=== PATIENT | male | born 1955 | race Caucasian/White ===

== ENCOUNTER 2017-02-17 13:56 | Emergency (ER) | payer OTHER ==
[~2017-02-17] VITALS: Wt 77.8 kg
[~2017-02-17 13:56] MED LIST: CLIN-73 PO
[2017-02-17] MEDS ORDERED: HYDROmorphONE 1 MG/ML SYG IV STA (16:59)
[2017-02-17] MEDS ORDERED: ONDANSETRON 4 MG INJ IV STA (16:59)
[2017-02-17] MEDS ORDERED: SOD CHLORIDE 0.9% 1,000 ML IV STA (16:59)
--- NOTE | 2017-02-17 17:06 | ERD ---
ER Documentation Chief Complaint Chief Complaint ABD PAIN, DIARRHEA, ONSET 4 DAYS HPI This is 61-year-old male complains of 4 days of diffuse abdominal cramps and diarrhea. The patient says everything he eats makes him have diarrhea. The patient states the diarrhea is nonbloody and non-mucousy. He says he is having diarrhea every 15-30 minutes today. Is not having any syncope palpitations chest pain. Does have mild nausea but no vomiting. ROS All systems reviewed and are negative except as per history of present illness. Medications Home Meds Active Scripts Tramadol HCl (Tramadol HCl) 50 Mg Tablet, 50 MG PO Q6, #20 TAB Prov:JAVIER SCOTTS A. DO 02/17/17 Metronidazole* (Flagyl*) 500 Mg Tablet, 500 MG PO TID for 7 Days, TAB Prov:JAVIER SCOTTS A. DO 02/17/17 Ciprofloxacin Hcl* (Ciprofloxacin Hcl*) 500 Mg Tablet, 500 MG PO BID for 7 Days , TAB Prov:JAVIER SCOTTS Laney. DO 02/17/17 Discontinued Reported Medications Clindamycin Hcl* (Clindamycin Hcl*) 300 Mg Capsule, 450 MG PO Q6, CAP 08/25/15 Allergies Allergies: Coded Allergies: codeine (Verified Allergy, Mild, GI UPSET, 02/17/17) nausea penicillin G (Verified Allergy, Unknown, 02/17/17) rash PMhx/Soc History of Surgery: Yes (L shoulder rotator cuff sx.) Anesthesia Reaction: No Hx Neurological Disorder: No Hx Respiratory Disorders: No Hx Cardiac Disorders: No Hx Psychiatric Problems: No Hx Miscellaneous Medical Probl: No Hx Alcohol Use: Yes (last intake was 2 years ago) Hx Substance Use: No Hx Tobacco Use: Yes (1 pack of cigarettes daily ) Smoking Status: Current every day smoker FmHx Family History: No coronary disease Physical Exam Vitals Vital Signs Date Time Temp Pulse Resp B/P Pulse Ox O2 Delivery O2 Flow Rate FiO2 02/17/17 18:19 98.1 72 20 108/82 98 Room Air 02/17/17 13:58 97.6 73 18 115/79 98 Physical Exam Const: Well-developed, well-nourished Head: Atraumatic, normocephalic Eyes: Normal Conjunctiva, PERRLA, EOMI, normal sclera, no nystagmus ENT: Normal External Ears, Nose and Mouth, moist mucus membranes. Neck: Full range of motion. No meningismus, no lymphadenopathy. Resp: Clear to auscultation bilaterally, no wheezing, rhonchi, rales Cardio: Regular rate and rhythm, no murmurs, S1 S2 present Abd: Soft, fused tenderness mild to moderate, non distended. Normal bowel sounds, no guarding or rebound, no pulsitile abdominal masses or bruits Skin: No petechiae or rashes, no ecchymosis , no maculopapular rash Back: No midline or flank tenderness Ext: No cyanosis, or edema, FROM x 4, normal inspection, neurovascularly intact x 4 Neur: Awake and alert, STR 5/5 x 4, sensation intact x 4, no focal findings, cerebellum intact Psych: Normal Mood and Affect Result Diagram: 02/17/17 1720 02/17/17 1720 Results 24 hrs Laboratory Tests Test 02/17/17 17:20 White Blood Count 9.710^3/ul Red Blood Count 5.3310^6/ul Hemoglobin 16.1g/dl Hematocrit 46.6% Mean Corpuscular Volume 87.4fl Mean Corpuscular Hemoglobin 30.2pg Mean Corpuscular Hemoglobin Concent 34.5g/dl Red Cell Distribution Width 12.2% Platelet Count 07606^3/UL Mean Platelet Volume 10.0fl Neutrophils % % Segmented Neutrophils % (Manual) 60% Band Neutrophils % (Manual) 4% Lymphocytes % % Lymphocytes % (Manual) 22% Monocytes % % Monocytes % (Manual) 7% Eosinophils % % Eosinophils % (Manual) 6% Basophils % % Nucleated Red Blood Cells % 0.0/100WBC Neutrophils # 10^3/ul Neutrophils # (Manual) 5.810^3/ul Band Neutrophils # 0.310^3/ul Absolute Lymphocytes (Manual) 2.110^3/ul Lymphocytes # 10^3/ul Monocytes # 10^3/ul Absolute Monocytes (Manual) 0.610^3/ul Eosinophils # 10^3/ul Basophils # 10^3/ul Nucleated Red Blood Cells # 10^3/ul Platelet Estimate INCREASED Sodium Level 141mmol/L Potassium Level 3.8mmol/L Chloride Level 102mmol/L Carbon Dioxide Level 28mmol/L Anion Gap 15 Blood Urea Nitrogen 16mg/dl Creatinine 0.74mg/dl Glucose Level 110mg/dl Calcium Level 9.6mg/dl Total Bilirubin 0.4mg/dl Direct Bilirubin 0.00mg/dl Indirect Bilirubin 0.4mg/dl Aspartate Amino Transf (AST/SGOT) 48IU/L Alanine Aminotransferase (ALT/SGPT) 57IU/L Alkaline Phosphatase 74IU/L Total Protein 7.7g/dl Albumin 3.9g/dl Globulin 3.80g/dl Albumin/Globulin Ratio 1.02 Lipase 1122U/L Current Medications Medications (Trade) Dose Ordered Sig/Fredrick Route PRN Reason Start Time Stop Time Status Last Admin Dose Admin Sodium Chloride (NS) 1,000 ml @ 1,000 mls/hr Q1H STAT IV 02/17/17 16:59 02/17/17 17:58 DC 02/17/17 17:17 Hydromorphone HCl (Dilaudid) 1 mg ONCE STAT IV 02/17/17 16:59 02/17/17 17:05 DC 02/17/17 17:17 Ondansetron HCl (Zofran Inj) 4 mg ONCE STAT IV 02/17/17 16:59 02/17/17 17:05 DC 02/17/17 17:17 IV Flush 10 ml 10 ml STK-MED ONCE .ROUTE 02/17/17 17:55 02/17/17 17:56 DC Sodium Chloride (NS) 100 ml @ ud STK-MED ONCE .ROUTE 02/17/17 17:55 02/17/17 17:56 DC Iohexol (Omnipaque 300mg/ ml) 150 ml STK-MED ONCE .ROUTE 02/17/17 17:55 02/17/17 17:56 DC Procedures/MDM PROCEDURE: CT Abdomen and Pelvis with contrast. CLINICAL INDICATION: Abdominal pain TECHNIQUE: CT scan of the abdomen and pelvis with contrast was performed on a multidetector high-resolution CT scanner. Coronal and sagittal reformatted images were obtained from the axial source images. Images were reviewed on a high-resolution PACS workstation. 80 cc of Isovue 300 iodinated contrast was administered intravenously without reported complication. The total exam CTDI equals 8 mGy and the total exam DLP equals 504 mGy-cm. One or more of the following dose reduction techniques were used: Automated exposure control, Adjustment of the mA and/or kV according to patient size, and/or use of iterative reconstruction technique. DICOM images are available. COMPARISON: None. FINDINGS: The lung bases are clear. The liver, pancreas, spleen, and adrenals are grossly unremarkable. No focal pericholecystic inflammatory changes. No hydronephrosis. No obstructing renal stone. Right renal cystic lesion measuring up to 4.3 cm. No evidence of small bowel obstruction. Normal-caliber appendix. Colonic diverticulosis with mild wall thickening of the sigmoid colon. No rim-enhancing fluid collection. No significant retroperitoneal lymphadenopathy, ascites or evidence of pneumoperitoneum. Aortoiliac atherosclerosis. Anterior and posterior spinal fusion L2-3. Degenerative changes of the spine. IMPRESSION: Mild sigmoid colitis/diverticulitis. No CT evidence of abscess or pneumoperitoneum. No evidence of small bowel obstruction or appendicitis. RPTAT: AA .Roe Patricio MD, MD Date Time Electronically viewed and signed by .Roe Patricio MD, on 02/17/2017 18:10 .T/ CC: JOSIAH SCOTT DO There is diverticulitis but no evidence of abscess or perforation. Patient feels better will discharge home with [facility] Cipro and Flagyl Departure Diagnosis: Primary Impression: Abdominal pain Abdominal location: generalized Qualified Code: R10.84 - Generalized abdominal pain Additional Impression: Diverticulitis Condition: Stable JOSIAH SCOTT DO Feb 17, 2017 17:06
[2017-02-17 17:27] LABS: ABNORMAL IP MESSAGE 1; HEMATOCRIT 46.6 % (42.0-52.0); HEMOGLOBIN 16.1 g/dl (14.0-18.0); MEAN CORPUSCULAR HEMOGLOBIN 30.2 pg (29.0-33.0); MEAN CORPUSCULAR HGB CONC 34.5 g/dl (32.0-37.0); MEAN CORPUSCULAR VOLUME 87.4 fl (82.0-101.0); PLATELET COUNT 353 10^3/UL (140-415); POSITIVE DIFF @See below; RED BLOOD COUNT 5.33 10^6/ul (4.70-6.10); RED CELL DISTRIBUTION WIDTH 12.2 % (11.5-14.5); WHITE BLOOD COUNT 9.7 10^3/ul (4.8-10.8)
[2017-02-17 17:45] LABS: ALBUMIN 3.9 g/dl (3.3-4.9); ALBUMIN/GLOBULIN RATIO 1.02; BILIRUBIN,INDIRECT 0.4 mg/dl (0-1.1); BILIRUBIN,TOTAL 0.4 mg/dl (0.2-1.3); CALCIUM 9.6 mg/dl (8.4-10.2); CREATININE 0.74 mg/dl (0.61-1.24); POTASSIUM 3.8 mmol/L (3.5-5.1); TOTAL PROTEIN 7.7 g/dl (6.1-8.1)
[2017-02-17] MEDS ORDERED: IOHEXOL 300MG/ML 150 ML BTL ONE (17:55)
[2017-02-17] MEDS ORDERED: SOD CHLORIDE 0.9% 100 ML ONE (17:55)
[2017-02-17 18:05] LABS: EOSINOPHILS % (M) 6 % (0-7); MONOCYTES % (M) 7 % (0-11); PLATELET ESTIMATE INCREASED
--- NOTE | 2017-02-17 18:11 | RADRPT ---
PROCEDURE: CT Abdomen and Pelvis with contrast. CLINICAL INDICATION: Abdominal pain TECHNIQUE: CT scan of the abdomen and pelvis with contrast was performed on a multidetector high-r esolution CT scanner. Coronal and sagittal reformatted images were obtained from the axial source im ages. Images were reviewed on a high-resolution PACS workstation. 80 cc of Isovue 300 iodinated cont rast was administered intravenously without reported complication. The total exam CTDI equals 8 mGy and the total exam DLP equals 504 mGy-cm. One or more of the following dose reduction techniques w ere used: Automated exposure control, Adjustment of the mA and/or kV according to patient size, and/ or use of iterative reconstruction technique. DICOM images are available. COMPARISON: None. FINDINGS: The lung bases are clear. The liver, pancreas, spleen, and adrenals are grossly unremarkable. No focal pericholecystic inflammatory changes. No hydronephrosis. No obstructing renal stone. Right renal cystic lesion measuring up to 4.3 cm. No evidence of small bowel obstruction. Normal-caliber appendix. Colonic diverticulosis with mild wa ll thickening of the sigmoid colon. No rim-enhancing fluid collection. No significant retroperitoneal lymphadenopathy, ascites or evidence of pneumoperitoneum. Aortoiliac atherosclerosis. Anterior and posterior spinal fusion L2-3. Degenerative changes of the spine. IMPRESSION: Mild sigmoid colitis/diverticulitis. No CT evidence of abscess or pneumoperitoneum. No evidence of small bowel obstruction or appendicitis. RPTAT: AA .Roe Patricio MD, MD Date Time Electronically viewed and signed by .Roe Patricio MD, MD on 02/17/2017 18:10 .T/
[2017-02-17 18:19] VITALS: BP 108/82; PULSE 72; RESP 20; TEMP 98.1
[2017-02-17] MEDS ORDERED: METR500T PO (20:13)
[2017-02-17] MEDS ORDERED: CIPR500T4 PO (20:13)
[2017-02-17] MEDS ORDERED: TRAM50TA2 PO (20:13)
== END 2017-02-17 20:20 | disposition home or self-care (01) ==
LOC: E/R 13:56
DX: K57.32 Diverticulitis of large intestine without perforation or abscess without bleeding (principal); F17.210 Nicotine dependence, cigarettes, uncomplicated
CPT/HCPCS: 36415; 74177; 80053; 83690; 85025; 96374; 96375; J1170; J2405; J7030; Q9967; Z7502; Z7610

== ENCOUNTER 2018-02-02 13:15 | Emergency (ER) | END 2018-02-02 15:56 | disposition home or self-care (01) ==

== ENCOUNTER 2018-02-04 12:31 | Emergency (ER) | END 2018-02-04 16:59 | disposition home or self-care (01) ==

== ENCOUNTER 2018-02-28 15:10 | Inpatient (IN) | payer OTHER ==
[~2018-02-28] VITALS: Ht 177.8 cm; Wt 77.0 kg
--- NOTE | 2018-02-28 18:33 | ERD ---
ER Documentation Chief Complaint Chief Complaint BACK PAIN; HX BACK SURGERY 1-MONTH AGO HPI 62-year-old male presenting with severe neck pain and back pain. He recently had neck surgery and lumbar spine surgery [address] Hutchinson. He did not want any further surgery as this was a stage surgery. He stated he was in too much pain and wanted to go home. Now he is returning with worsening pain and would like surgery. He denies any new focal weakness or numbness. No fevers or chills. No nausea or vomiting. Pain is worse with movement, no alleviating factors. Pain is currently a 10 out of 10 in his neck ROS All systems reviewed and are negative except as per history of present illness. Medications Home Meds No Active Prescriptions or Reported Meds Allergies Allergies: Coded Allergies: levofloxacin (Verified Allergy, Mild, Rash, 02/28/18) penicillin G (Verified Allergy, Unknown, 02/28/18) rash codeine (Verified Adverse Reaction, Mild, GI UPSET, 02/28/18) nausea PMhx/Soc History of Surgery: Yes (spinal fusion, HARDWARE IN LEFT SHOULDER) Anesthesia Reaction: No Hx Neurological Disorder: Yes (hx of spinal fusion) Hx Respiratory Disorders: No Hx Cardiac Disorders: No Hx Psychiatric Problems: No Hx Miscellaneous Medical Probl: Yes (HOMELESS) Hx Alcohol Use: Yes (SOCIALLY) Hx Substance Use: Yes (MARIJUANA, IV meth x2atvwq ago) Hx Tobacco Use: Yes (1pack/day) Smoking Status: Heavy tobacco smoker FmHx Family History: No diabetes Physical Exam Vitals Vital Signs Date Temp Pulse Resp B/P (MAP) Pulse Ox O2 O2 Flow FiO2 Time Delivery Rate 02/28/18 86 18 124/76 100 Room Air 19:34 (92) 02/28/18 98.8 91 16 128/86 99 15:30 (100) Physical Exam Const: No acute distress Head: Atraumatic Eyes: Normal Conjunctiva ENT: Normal External Ears, Nose and Mouth. Neck: Full range of motion. No meningismus. Scar noted to posterior neck, healing well with no signs of infection Resp: Clear to auscultation bilaterally Cardio: Regular rate and rhythm, no murmurs Abd: Surgical abdominal scar healing well with no signs of infection. Soft, non tender, non distended. Normal bowel sounds Skin: No petechiae or rashes Back: No midline or flank tenderness Ext: No cyanosis, or edema Neur: Awake and alert, normal speech, no facial asymmetry, strength and sensations intact in all 4 extremities. Psych: Normal Mood and Affect Result Diagram: 02/28/18183902/28/181839 Results 24 hrs Laboratory Tests Test 02/28/18 18:40 White Blood Count 8.3 10^3/ul Red Blood Count 4.46 10^6/ul Hemoglobin 13.4 g/dl Hematocrit 41.8 % Mean Corpuscular Volume 93.7 fl Mean Corpuscular Hemoglobin 30.0 pg Mean Corpuscular Hemoglobin Concent 32.1 g/dl Red Cell Distribution Width 12.8 % Platelet Count 384 10^3/UL Mean Platelet Volume 9.3 fl Immature Granulocytes % 0.400 % Neutrophils % 49.7 % Lymphocytes % 34.5 % Monocytes % 9.2 % Eosinophils % 5.4 % Basophils % 0.8 % Nucleated Red Blood Cells % 0.0 /100WBC Immature Granulocytes # 0.030 10^3/ul Neutrophils # 4.1 10^3/ul Lymphocytes # 2.9 10^3/ul Monocytes # 0.8 10^3/ul Eosinophils # 0.5 10^3/ul Basophils # 0.1 10^3/ul Nucleated Red Blood Cells # 0.0 10^3/ul Sodium Level 138 mmol/L Potassium Level 4.8 mmol/L Chloride Level 106 mmol/L Carbon Dioxide Level 23 mmol/L Anion Gap 9 Blood Urea Nitrogen 13 mg/dl Creatinine 0.51 mg/dl Est Glomerular Filtrat Rate mL/min > 60 mL/min Glucose Level 98 mg/dl Calcium Level 9.3 mg/dl Total Bilirubin 0.4 mg/dl Direct Bilirubin 0.00 mg/dl Indirect Bilirubin 0.4 mg/dl Aspartate Amino Transf (AST/SGOT) 51 IU/L Alanine Aminotransferase (ALT/SGPT) 31 IU/L Alkaline Phosphatase 91 IU/L Total Protein 7.5 g/dl Albumin 3.9 g/dl Globulin 3.60 g/dl Albumin/Globulin Ratio 1.08 Current Medications Medications Dose Sig/Fredrick Start Time Status Last (Trade) Ordered Route PRN Stop Time Admin Dose Reason Admin 1 mg ONCE STAT 02/28/18 DC 02/28/18 Hydromorphone IV 18:42 19:31 HCl 02/28/18 (Dilaudid) 18:43 Ondansetron 4 mg BRIDGE ORDER 02/28/18 DC HCl (Zofran PRN IV 19:30 Inj) NAUSEA AND/OR 02/28/18 VOMITING 20:18 650 mg ER BRIDGE 02/28/18 DC Acetaminophen PRN PO MILD 19:30 (Tylenol PAIN(1-3)OR 02/28/18 Tab) ELEVATED TEMP 20:18 IV Flush 3 ml PER 02/28/18 (NS 3 ml) PROTOCOL IV 20:30 Ondansetron 4 mg Q6H PRN 02/28/18 HCl (Zofran IV NAUSEA 20:30 Inj) AND/OR VOMITING 650 mg Q6H PRN 02/28/18 Acetaminophen PO PAIN 20:30 (Tylenol LEVEL 1-3 OR Tab) FEVER Morphine 2 mg Q4H PRN 02/28/18 Sulfate IV SEVERE 20:30 (morphine) PAIN LEVEL 7-10 Famotidine 20 mg Q12 IV 02/28/18 02/28/18 (Pepcid Iv) 21:00 21:13 Enoxaparin 30 mg DAILY SC 03/01/18 Sodium 09:00 (Lovenox) Procedures/MDM EMERGENT LABS AND DIAGNOSTIC STUDIES: Lab Results above were reviewed and interpreted by me. CBC: no anemia or evidence of infection CMP: No evidence of electrolyte abnormality, renal failure, hypoglycemia, liver failure, or biliary obstruction Initial Nursing notes reviewed. Previous Medical Records requested via the Electronic Health Record. EMERGENCY DEPARTMENT COURSE / MEDICAL DECISION MAKING: Patient is presenting with severe neck pain that is chronic. I spoke with Dr. Hutchinson and he like the patient admitted for the last stage of his surgery which is decompression. I spoke with Dr. Sanders, and he will be admitting the patient to [facility]. Departure Diagnosis: Primary Impression: Neck pain, chronic Condition: RABIA Jean MD Feb 28, 2018 18:33
[2018-02-28] MEDS ORDERED: HYDROmorphONE 2 MG/ML SYG IV STA (18:42)
[2018-02-28] MEDS ORDERED: ACETAMINOPHEN 325 MG TAB PO PRN ×2 (19:30→20:30)
[2018-02-28] MEDS ORDERED: ONDANSETRON 4 MG INJ IV PRN ×2 (19:30→20:30)
[2018-02-28] MEDS ORDERED: NACL 0.9% 3 ML SYG IV SCH (20:30)
[2018-02-28] MEDS: FAMOTIDINE 20 MG INJ IV SCH (21:13)
[2018-02-28 21:43] VITALS: Ht 177.8 cm; Wt 77.0 kg
--- NOTE | 2018-02-28 21:43 | NUR ---
PATIENT ARRIVED TO THE UNIT AT THIS TIME VIA GURNEY .. PATIENT ALERT AND ORIENTED X4 . ASSISTED TO BED . IMMEDIATE NEEDS ATTENDED TO .ROUTINE ADMISSION CARE RENDERED .DENIES ANY PAIN / DISCOMFORT .V/S STABLES .ORIENTED PATIENT TO THE ENVIRONMENT . CALL LIGHTS WITHIN REACH . BED IN LOW POSITION . INSTRUCTED PATIENT TO USE CALL LIGHTS FOR ASSISTANCE. PATIENT VERBALIZED UNDERSTANDING .SKIN ASSESSMENT PER PROTOCOL DONE . ADMISSION ORDERS NOTED .CONTINUE WITH PLAN OF CARE . WILL CONTINUE TO MONITOR .
[2018-02-28 22:13] VITALS: BP 119/71; PULSE 85; RESP 16
[2018-03-01 02:08] VITALS: BP_SYST 117; BP_SYST 119; BP_DIAS 73; BP_DIAS 75; PULSE 63; PULSE 74; RESP 16; RESP 18
[2018-03-01] MEDS: morphine 2 MG INJ IV PRN ×5 (03:31→22:37)
[2018-03-01 07:58] VITALS: BP 102/63; PULSE 81; RESP 18
[2018-03-01] MEDS: FAMOTIDINE 20 MG INJ IV SCH ×2 (08:39→20:34)
[2018-03-01] MEDS ORDERED: ENOXAPARIN 30 MG/0.3 ML SYG SC SCH (09:00)
--- NOTE | 2018-03-01 12:40 | CONS ---
Date/Time of Note Date/Time of Note DATE: 03/01/18 TIME: 12:35 Consultation Date/Type/Reason Admit Date/Time Feb 28, 2018 at 19:04 Hx of Present Illness Neurosurgery Consult Note HPI: 62 y/o male well known to Neurosurgical team and underwent Posterior cervical fusion and anterior lumbar fusion (Jan 2018). Pt was scheduled for staged procedure, posterior fixation with possible decompression several days after anterior approach but refused at the time. Pt advised risk/complications of not proceeding with surgery including pseudoarthrosis. Pt opted to be discharged home and to follow up as outpt. Pt presents to [facility] ED with worsening back pain. Past Surgical History Past Surgical Hx: other Social History Smoking Status: Heavy tobacco smoker Exam/Review of Systems Vital Signs Vitals Vital Signs Date Temp Pulse Resp B/P (MAP) Pulse Ox O2 O2 Flow FiO2 Time Delivery Rate 03/01/18 98.2 81 18 102/63 97 Room Air 07:58 (76) Medications Medications Current Medications IV Flush (NS 3 ml) 3 ml PER PROTOCOL IV ; Start 02/28/18 at 20:30 Ondansetron HCl (Zofran Inj) 4 mg Q6H PRN IV NAUSEA AND/OR VOMITING; Start 02/28/18 at 20:30 Acetaminophen (Tylenol Tab) 650 mg Q6H PRN PO PAIN LEVEL 1-3 OR FEVER; Start 02/28/18 at 20:30 Morphine Sulfate (morphine) 2 mg Q4H PRN IV SEVERE PAIN LEVEL 7-10 Last administered on 03/01/18at 08:39; Admin Dose 2 MG; Start 02/28/18 at 20:30 Famotidine (Pepcid Iv) 20 mg Q12 IV Last administered on 03/01/18at 08:39; Admin Dose 20 MG; Start 02/28/18 at 21:00 Results Result Diagram: 03/01/18 0459 03/01/18 0459 Results 24 hrs Laboratory Tests Test 02/28/18 18:40 03/01/18 04:59 White Blood Count 8.3 # 6.9 Red Blood Count 4.46 #L 4.31 L Hemoglobin 13.4 #L 13.0 L Hematocrit 41.8 #L 40.0 L Mean Corpuscular Volume 93.7 92.8 Mean Corpuscular Hemoglobin 30.0 30.2 Mean Corpuscular Hemoglobin Concent 32.1 32.5 Red Cell Distribution Width 12.8 13.1 Platelet Count 384 # 358 Mean Platelet Volume 9.3 9.1 Immature Granulocytes % 0.400 0.300 Neutrophils % 49.7 41.1 Lymphocytes % 34.5 41.2 Monocytes % 9.2 9.2 Eosinophils % 5.4 7.2 H Basophils % 0.8 1.0 Nucleated Red Blood Cells % 0.0 0.0 Immature Granulocytes # 0.030 0.020 Neutrophils # 4.1 2.8 Lymphocytes # 2.9 2.9 Monocytes # 0.8 0.6 Eosinophils # 0.5 0.5 Basophils # 0.1 0.1 Nucleated Red Blood Cells # 0.0 0.0 Sodium Level 138 141 Potassium Level 4.8 4.3 Chloride Level 106 104 Carbon Dioxide Level 23 30 Anion Gap 9 7 Blood Urea Nitrogen 13 14 Creatinine 0.51 L 0.68 Est Glomerular Filtrat Rate mL/min > 60 > 60 Glucose Level 98 114 Calcium Level 9.3 8.9 Total Bilirubin 0.4 0.2 Direct Bilirubin 0.00 0.00 Indirect Bilirubin 0.4 0.2 Aspartate Amino Transf (AST/SGOT) 51 H 39 Alanine Aminotransferase (ALT/SGPT) 31 35 Alkaline Phosphatase 91 91 Total Protein 7.5 6.9 Albumin 3.9 3.6 Globulin 3.60 H 3.30 H Albumin/Globulin Ratio 1.08 1.09 Hemoglobin A1c 4.7 BRAYDEN SILVEIRA NP Mar 01, 2018 12:40
[2018-03-01 14:35] VITALS: BP 110/70; PULSE 78; RESP 17
--- NOTE | 2018-03-01 16:14 | NUR ---
SS Note: Consult SW received order to meet with pt regarding homelessness and meth abuse. The patient is a 62-year-old male who presented with severe neck pain and back pain, hx of back surgery [id number] ago. SW met with pt to provide support, complete psychosocial assessment, and link pt to appropriate resources. Pt awake, alert, and oriented x4. Pt cooperative with SW. SW reviewed pt's previous hospitalizations. Pt [facility] [phone] on 01/29/18. SW inquired about pt's stay at SNF, per pt, he left AMA same day. Pt is single and has 6 adult children. Pt verbally appointed his daughter, Cristi Almonte , as surrogate decision maker/spokesperson. Address on facesheet is pt's mailing address. Pt homeless over 8 years. Per pt, he is working with [employer] and [facility] for housing. Pt's assigned [facility] mental health specialist is Miriam Briceno . Pt requested for SW to contact Miriam regarding d/c plan. SW contacted Miriam to find out pt's housing status and left VM. Currently, pt staying in a tent located at the [facility]. Pt has [facility] and PCP is at [facility], but pt hasn't seen him in years. Per pt, he is independent with ADL's and ambulates with a cane. Pt receives SSI $1,016/month. Pt endorsed hx of depression, anxiety, and anger management. Pt denied use of psych meds and stated he has an appointment with [facility] psychiatrist on Apr 09, 2018. Pt admitted to meth use x30 years. Pt reported using meth intravenously on occasion when he needs "a little pick me up" and last use was a "few days ago". Pt also has hx of heroine abuse, but quit in 1993. Per pt, he is receiving him help for substance abuse through [facility]. SW awaiting call back from [facility] mental health specialist. Pt scheduled for surgery tomorrow. SW discussed case with CM. D/C disposition will depend on pt's surgical outcome. Possibility pt may need rehab.
--- NOTE | 2018-03-01 18:01 | NUR ---
Nurse Notes: Patient alert and oriented x 4, able to make needs known remained stable throughout the shift with no acute changes noted. No SOB or distress. assessed and reassessed for pain. Medicated with Morphine Q4H for pain as ordered. Lenny WIRE MACHINE OPERATOR informed. All due medications were given tolerated well. All needs were attended and anticipated. Safety precautions observed. Hourly rounding done, encouraged to use call light whenever assistance is needed. will continue to monitor. Will endorse accordingly to next shift for continuity
[2018-03-01 20:00] VITALS: BP 113/63; PULSE 78; RESP 18
--- NOTE | 2018-03-01 20:21 | HP ---
Date/Time of Note Date/Time of Note DATE: 03/01/18 TIME: 20:09 Assessment/Plan VTE Prophylaxis Risk score (from Nsg)>0 risk: 3 SCD applied (from Nsg): Yes Pharmacological prophylaxis: other Lines/Catheters IV Catheter Type (from Nrsg): Mid Line Central line still needed: Yes Urinary Cath still in place: Yes Reason Cath still needed: urinary retention Assessment/Plan Assessment/Plan - Acute on chronic intractable neck pain - Acute intractable back pain. - per neurosurgery - pain management - SP Posterior cervical fusion and anterior lumbar fusion on Jan 2018 - Current Tobaccoism - smoking cessation - Multi drug allergy - Homelessness - will get forensic social worker consult Dw Dr Wheatley/ staff HPI/ROS Admit Date/Time Admit Date/Time Feb 28, 2018 at 19:04 ROS 62-year-old male presenting with severe neck pain and back pain. He recently had neck surgery and lumbar spine surgery [address] Hutchinson. He did not want any further surgery as this was a stage surgery. He stated he was in too much pain and wanted to go home. Now he is returning with worsening pain and would like surgery. He denies any new focal weakness or numbness. No fevers or chills. No nausea or vomiting. Pain is worse with movement, no alleviating factors. Pain is currently a 10 out of 10 in his neck ROS All systems reviewed and are negative except as per history of present illness. Medications Home Meds No Active Prescriptions or Reported Meds Allergies Allergies: Coded Allergies: levofloxacin (Verified Allergy, Mild, Rash, 02/28/18) penicillin G (Verified Allergy, Unknown, 02/28/18) rash codeine (Verified Adverse Reaction, Mild, GI UPSET, 02/28/18) nausea PMhx/Soc History of Surgery: Yes (spinal fusion, HARDWARE IN LEFT SHOULDER) Anesthesia Reaction: No Hx Neurological Disorder: Yes (hx of spinal fusion) Hx Respiratory Disorders: No Hx Cardiac Disorders: No Hx Psychiatric Problems: No Hx Miscellaneous Medical Probl: Yes (HOMELESS) Hx Alcohol Use: Yes (SOCIALLY) Hx Substance Use: Yes (MARIJUANA, IV meth c0dzprj ago) Hx Tobacco Use: Yes (1pack/day) Smoking Status: Heavy tobacco smoker FmHx Family History: No diabetes Eyes: pain ENT: no complaints Respiratory: no complaints Cardiovascular: no complaints PMH/Family/Social Past Medical History Coded Allergies: levofloxacin (Verified Allergy, Mild, Rash, 02/28/18) penicillin G (Verified Allergy, Unknown, 02/28/18) rash codeine (Verified Adverse Reaction, Mild, GI UPSET, 02/28/18) nausea Past Surgical History Past Surgical Hx: other Family History Significant Family History: no pertinent family hx Social History Smoking Status: Heavy tobacco smoker Drug Use: marijuana Exam/Review of Systems Vital Signs Vitals Vital Signs Date Temp Pulse Resp B/P (MAP) Pulse Ox O2 O2 Flow FiO2 Time Delivery Rate 03/01/18 98.4 78 17 110/70 98 Room Air 14:35 (83) Exam Constitutional: alert, well developed Psych: nl mood/affect Head: normocephalic, atraumatic Eyes: nl conjunctiva ENMT: nl external ears & nose Neck: non-tender Respiratory: diminished breath sounds Cardiovascular: nl pulses, other Gastrointestinal: soft Musculoskeletal: nl extremities to inspection Medications Medications Current Medications IV Flush (NS 3 ml) 3 ml PER PROTOCOL IV ; Start 02/28/18 at 20:30 Ondansetron HCl (Zofran Inj) 4 mg Q6H PRN IV NAUSEA AND/OR VOMITING; Start 02/28/18 at 20:30 Acetaminophen (Tylenol Tab) 650 mg Q6H PRN PO PAIN LEVEL 1-3 OR FEVER; Start 02/28/18 at 20:30 Morphine Sulfate (morphine) 2 mg Q4H PRN IV SEVERE PAIN LEVEL 7-10 Last administered on 03/01/18at 17:43; Admin Dose 2 MG; Start 02/28/18 at 20:30 Famotidine (Pepcid Iv) 20 mg Q12 IV Last administered on 03/01/18at 08:39; Admin Dose 20 MG; Start 02/28/18 at 21:00 Results Result Diagram: 03/01/18 0459 03/01/18 0459 Results 24 hrs Laboratory Tests Test 03/01/18 04:59 03/01/18 14:17 White Blood Count 6.9 Red Blood Count 4.31 L Hemoglobin 13.0 L Hematocrit 40.0 L Mean Corpuscular Volume 92.8 Mean Corpuscular Hemoglobin 30.2 Mean Corpuscular Hemoglobin Concent 32.5 Red Cell Distribution Width 13.1 Platelet Count 358 Mean Platelet Volume 9.1 Immature Granulocytes % 0.300 Neutrophils % 41.1 Lymphocytes % 41.2 Monocytes % 9.2 Eosinophils % 7.2 H Basophils % 1.0 Nucleated Red Blood Cells % 0.0 Immature Granulocytes # 0.020 Neutrophils # 2.8 Lymphocytes # 2.9 Monocytes # 0.6 Eosinophils # 0.5 Basophils # 0.1 Nucleated Red Blood Cells # 0.0 Sodium Level 141 Potassium Level 4.3 Chloride Level 104 Carbon Dioxide Level 30 Anion Gap 7 Blood Urea Nitrogen 14 Creatinine 0.68 Est Glomerular Filtrat Rate mL/min > 60 Glucose Level 114 Hemoglobin A1c 4.7 Calcium Level 8.9 Total Bilirubin 0.2 Direct Bilirubin 0.00 Indirect Bilirubin 0.2 Aspartate Amino Transf (AST/SGOT) 39 Alanine Aminotransferase (ALT/SGPT) 35 Alkaline Phosphatase 91 Total Protein 6.9 Albumin 3.6 Globulin 3.30 H Albumin/Globulin Ratio 1.09 Prothrombin Time 12.3 Prothrombin Time Ratio 1.0 INR International Normalized Ratio 0.91 Activated Partial Thromboplast Time 30.3 MARITA AUGUST Mar 01, 2018 20:20
--- NOTE | 2018-03-01 20:52 | NUR ---
Spoke to Celso Herrera from neuro. Per Sharon, patient will have surgery until Thursday. No need to be NPO after midnight. Notified patient regarding surgery day. Patient verbalized understanding.
[2018-03-02 02:00] VITALS: BP 153/96; PULSE 85; RESP 18
[2018-03-02] MEDS: morphine 2 MG INJ IV PRN (04:39)
--- NOTE | 2018-03-02 06:05 | NUR ---
Patient is alert and oriented x4, morphine administered for pain Q4H. Patient is able to ambulate without difficulty. Neuro checks done as ordered. No new changes. Smoking cessation education provided. Hourly rounding provided. Call light within reach. Will continue to monitor for the remaining of the shift.
[2018-03-02 08:16] VITALS: BP 139/91; PULSE 85; RESP 18
[2018-03-02] MEDS: FAMOTIDINE 20 MG INJ IV SCH ×2 (09:34→20:17)
[2018-03-02] MEDS: HYDROmorphONE 0.5 MG/0.5 ML SYG IV PRN ×3 (09:41→20:17)
[2018-03-02 14:22] VITALS: BP 130/84; PULSE 83; RESP 16
--- NOTE | 2018-03-02 19:05 | NUR ---
Nurse Notes: Patient alert and oriented x 4, able to make needs known remained stable throughout the shift with no acute changes noted. No SOB or distress. assessed and reassessed for pain. Medicated with Dilaudid for pain as ordered. All due medications were given tolerated well. All needs were attended and anticipated. Safety precautions observed. Hourly rounding done, encouraged to use call light whenever assistance is needed. will continue to monitor. Will endorse accordingly to next shift for continuity
[2018-03-02 20:33] VITALS: BP 119/76; PULSE 87; RESP 18
--- NOTE | 2018-03-02 22:03 | PN ---
Date/Time of Note Date/Time of Note DATE: 03/02/18 TIME: 22:01 Assessment/Plan VTE Prophylaxis Risk score (from Nsg)>0 risk: 3 SCD applied (from Nsg): Yes SCD contraindicated: other Pharmacological prophylaxis: other Pharm contraindication: other Lines/Catheters IV Catheter Type (from Nrsg): Mid Line Central line still needed: Yes Urinary Cath still in place: Yes Reason Cath still needed: urinary retention Assessment/Plan Assessment/Plan - Acute on chronic intractable neck pain - Acute intractable back pain. - per neurosurgery - pain management - SP Posterior cervical fusion and anterior lumbar fusion on Jan 2018 - Current Tobaccoism - smoking cessation - Multi drug allergy - Homelessness - will get social work job titles consult Dw Dr Wheatley/ staff Subjective 24 Hr Interval Summary Free Text/Dictation plan for spinal surgery am ENT: no complaints Respiratory: no complaints Cardiovascular: no complaints Gastrointestinal: no complaints Genitourinary: no complaints Musculoskeletal: neck pain Skin: no complaints Exam/Review of Systems Vital Signs Vitals Vital Signs Date Temp Pulse Resp B/P (MAP) Pulse Ox O2 O2 Flow FiO2 Time Delivery Rate 03/02/18 98.5 87 18 119/76 100 20:33 (90) 03/01/18 Room Air 14:35 Intake and Output 03/01/18 03/01/18 03/02/18 1515:00 23:00 07:00 IntakeIntake Total 200 ml BalanceBalance 200 ml Exam Constitutional: alert Psych: nl mood/affect Eyes: nl conjunctiva, EOMI, nl lids, nl sclera Neck: non-tender Respiratory: clear to auscultation Cardiovascular: nl pulses Gastrointestinal: soft, non-tender Musculoskeletal: nl extremities to inspection Extremities: normal pulses Neurological: other (alert/responsive) Lymph: nontender MARITA AUGUST Mar 02, 2018 22:03
[2018-03-03] MEDS: HYDROmorphONE 0.5 MG/0.5 ML SYG IV PRN ×5 (00:15→20:31)
[2018-03-03 02:29] VITALS: BP 119/65; PULSE 78; RESP 20
--- NOTE | 2018-03-03 06:55 | NUR ---
No acute changes during the shift. Pt slept through the night with son at bedside. Pt currently NPO. Pt pain managed throughout shift. No signs of discomfort or distress. No SOB. Pt currently resting comfortably in bed. Bed alarm on, call light within reach. Will continue to monitor.
[2018-03-03 08:05] VITALS: BP 137/88; PULSE 52; RESP 14
[2018-03-03] MEDS: FAMOTIDINE 20 MG INJ IV SCH ×2 (08:31→20:31)
[2018-03-03 14:57] VITALS: BP 116/80; PULSE 82; RESP 16
--- NOTE | 2018-03-03 15:53 | PN ---
Date/Time of Note Date/Time of Note DATE: 03/03/18 TIME: 15:53 Assessment/Plan VTE Prophylaxis Risk score (from Nsg)>0 risk: 4 SCD applied (from Nsg): Yes Lines/Catheters IV Catheter Type (from Nrsg): Mid Line Urinary Cath still in place: Yes Assessment/Plan Assessment/Plan - Acute on chronic intractable neck pain - Acute intractable back pain. - per neurosurgery- surgery today - pain management - SP Posterior cervical fusion and anterior lumbar fusion on Jan 2018 - Current Tobaccoism - smoking cessation - Multi drug allergy - Homelessness - will get social sciences lecturer consult Dw Dr Wheatley/ staff Exam/Review of Systems Vital Signs Vitals Vital Signs Date Temp Pulse Resp B/P (MAP) Pulse Ox O2 O2 Flow FiO2 Time Delivery Rate 03/03/18 98.0 82 16 116/80 94 14:57 (92) 03/01/18 Room Air 14:35 Intake and Output 03/02/18 03/02/18 03/03/18 1515:00 23:00 07:00 IntakeIntake Total 240 ml 600 ml 750 ml BalanceBalance 240 ml 600 ml 750 ml MARITA AUGUST Mar 03, 2018 15:53
--- NOTE | 2018-03-03 18:51 | NUR ---
Pt is still NPO at this time. No call yet from pre op for spanish moss picker time. No significant changes noted. Will endorse accordingly
[2018-03-03 20:00] VITALS: BP 129/75; PULSE 88; RESP 18
--- NOTE | 2018-03-03 21:10 | NUR ---
Report given to TONE Contreras in Preop
--- NOTE | 2018-03-03 23:08 | NUR ---
Spoke to Celso Herrera NP on the phone. Per CREDIT VERIFICATION CLERK surgery was cancelled tonight due to anesthesiologist stating it is unsafe at this time. Surgery is scheduled tomorrow at 1400. Per CREDIT VERIFICATION CLERK pt can eat untill 0300. Informed pt with charge nurse at bedside.Pt was really upset that he has been waiting all day and has been NPO since midnight. Pt was given recovery meal. Will continue to monitor.
[2018-03-04] VITALS (12 sets, daily range): BP systolic 114–141; BP diastolic 57–107; PULSE 71–93; RESP 12–20
[2018-03-04] MEDS: HYDROmorphONE 0.5 MG/0.5 ML SYG IV PRN ×4 (00:41→13:30)
--- NOTE | 2018-03-04 05:41 | NUR ---
Pt refused VS at 0200. Pt also refuses bed alarm. Charge nurse is aware. Will continue to monitor.
--- NOTE | 2018-03-04 06:49 | NUR ---
VS are stable. No acute changes or s/s of respiratory distress during shift. Medicated pt with PRN Dilaudid. Pt has been NPO since 0300; pt is very upset that he cannot eat or drink this morning. Hourly rounding provided.Pt refuses bed alarm and turns off bed alarm; charge nurse aware. Pt refused VS at 0200 and Charge Nurse is aware. Pt to have procedure today at 1400; Will endorse to oncoming nurse.
[2018-03-04] MEDS: FAMOTIDINE 20 MG INJ IV SCH ×2 (09:26→20:51)
--- NOTE | 2018-03-04 12:23 | NUR ---
SS Note: F/U MARTY f/u with pt's assigned [facility] mental health specialist is Miriam Briceno who is assisting with placement. She stated she wanted to touch base with this machine sign writer and discuss d/c plan. MARTY informed her pt is scheduled for surgery today and placement will be depend on surgical outcome. She stated at this time they do not have any beds at their senior care. MARTY and Miriam will continue to collaborate. Miriam will be off until Mar 18, however, will call this machine sign writer back to provide second point of contact.
--- NOTE | 2018-03-04 14:30 | NUR ---
Pt left the unit going to surgery. Pt is alert, awake and verbally responsive. Respiration are even and non labored. No acute distress or discomfort noted
--- NOTE | 2018-03-04 15:16 | PREAC ---
Date/Time of Note Date/Time of Note DATE: 03/04/18 TIME: 15:14 Anesthesia Eval and Record Evaluation Time Pre-Procedure Interview DATE: 03/04/18 TIME: 15:14 Age 62 Sex male NPO: 8 hrs Preoperative diagnosis back / leg pain Planned procedure Bilateral L2-S1 posterior lumbar laminectomies, partial facetectomies and foraminotomies, with or without disectomies Past Medical History Past Medical History: Includes Pulm: Smoking Hx (1PPD) Recreational drugs: Marijuana (Last week), Other (Meth used last week) Surgery & Anesthesia Issues No known issue Meds Anticoagulation: No Beta Tawanna within 24 hr: No Reason Beta Tawanna not given: Pt. not on B-Tawanna No Active Prescriptions or Reported Meds Current Medications IV Flush (NS 3 ml) 3 ml PER PROTOCOL IV ; Start 02/28/18 at 20:30 Ondansetron HCl (Zofran Inj) 4 mg Q6H PRN IV NAUSEA AND/OR VOMITING; Start 02/28/18 at 20:30 Acetaminophen (Tylenol Tab) 650 mg Q6H PRN PO PAIN LEVEL 1-3 OR FEVER; Start 02/28/18 at 20:30 Famotidine (Pepcid Iv) 20 mg Q12 IV Last administered on 03/04/18at 09:26; Admin Dose 20 MG; Start 02/28/18 at 21:00 Hydromorphone HCl (Dilaudid) 0.4 mg Q4H PRN IV SEVERE PAIN LEVEL 7-10 Last administered on 03/04/18at 13:30; Admin Dose 0.4 MG; Start 03/02/18 at 09:30 Meds reviewed: Yes Allergies Coded Allergies: levofloxacin (Verified Allergy, Mild, Rash, 02/28/18) penicillin G (Verified Allergy, Unknown, 02/28/18) rash codeine (Verified Adverse Reaction, Mild, GI UPSET, 02/28/18) nausea Allergies Reviewed: Yes Labs/Studies Labs Reviewed: Reviewed by anesthesiologist Result Diagram: 03/02/1882803/02/18828 test: N/A Pre-procedure Exam Last vitals Vital Signs Date Temp Pulse Resp B/P (MAP) Pulse Ox O2 O2 Flow FiO2 Time Delivery Rate 03/04/18 98.0 73 16 137/87 98 Room Air 14:35 (104) Airway: Adequate mouth opening Mallampati: Mallampati II Teeth: Abnormal (no teeth on top - bottom teeth missing no loose or chipped) Lung: Normal Heart: Normal ASA Physical Status ASA physical status: 2 Emergency: None Planned Anesthetic General/MAC: ETT Pre-operative Attestations Prior to commencing anesthesia and surgery, the patient was re-evaluated, there was verification of: *The patient's identity *The results of appropriate recent lab work and preoperative vital signs *The above evaluation not changing prior to induction *Anesthetic plan, risk benefits, alternative and complications discussed with patient/family; questions answered; patient/family understands, accepts and wishes to proceed. LAZARO SABA Mar 04, 2018 15:16
[2018-03-04] MEDS ORDERED: GELATIN SIZE 100 SPONGE ONE (15:17)
[2018-03-04] MEDS ORDERED: THROMBIN 5000 UNIT VIAL ONE (15:18)
[2018-03-04] MEDS ORDERED: SUCCINYLCHOLINE CHLORIDE 100 MG/5 ML SYG IV ONE (15:44)
[2018-03-04] MEDS ORDERED: ROCURONIUM 50 MG INJ ONE ×2 (15:44→16:21)
[2018-03-04] MEDS ORDERED: PROPOFOL 20 ML ONE (15:44)
[2018-03-04] MEDS ORDERED: LIDOCAINE 2% (SDV) 5 ML INJ ONE (15:44)
[2018-03-04] MEDS ORDERED: MIDAZOLAM 1 MG/ML 2 ML INJ ONE (15:44)
[2018-03-04] MEDS ORDERED: CEFAZOLIN 1 GM INJ ONE (15:57)
[2018-03-04] MEDS ORDERED: ROPIVACAINE 0.5 % 30 ML VIAL ONE (15:58)
[2018-03-04] MEDS ORDERED: PHENYLephrine (100 MCG/ML) 5ML SYG ONE (16:01)
[2018-03-04] MEDS ORDERED: MEPERIDINE 25 MG INJ IV PRN ×2 (16:30→18:30)
[2018-03-04] MEDS ORDERED: ONDANSETRON 4 MG INJ IV PRN ×2 (16:30→18:30)
[2018-03-04] MEDS ORDERED: LABETALOL HCL 20MG INJ IV PRN (16:30)
[2018-03-04] MEDS ORDERED: PROCHLORPERAZINE 10 MG INJ IV PRN (16:30)
[2018-03-04] MEDS ORDERED: FENTAnyl 50 MCG/ML VIAL IV PRN ×6 (16:30→18:30)
[2018-03-04] MEDS ORDERED: HYDROmorphONE 1 MG/5 ML IV SYRINGE IV PRN ×3 (16:30)
[2018-03-04] MEDS ORDERED: hydrALAzine 20 MG INJ IV PRN (16:30)
[2018-03-04] MEDS ORDERED: DIPHENHYDRAMINE 50 MG INJ IV PRN ×2 (16:30→18:30)
[2018-03-04] MEDS ORDERED: DEXAMETHASONE 4 MG/ML 1 ML INJ ONE (16:37)
[2018-03-04] MEDS ORDERED: ONDANSETRON 4 MG INJ ONE (16:37)
[2018-03-04] MEDS ORDERED: FAMOTIDINE 20 MG INJ ONE (16:37)
[2018-03-04] MEDS ORDERED: SUGAMMADEX SODIUM 200 MG/2 ML VIAL IV ONE (17:54)
--- NOTE | 2018-03-04 18:02 | OPPN ---
Date/Time of Note Date/Time of Note DATE: 03/04/18 TIME: 17:59 Operative Report Preoperative Diagnosis LBP and radiculopathy Postoperative Diagnosis same Operation/Procedure Performed L2-S1 ISF and decompression Surgeon see signature line obstetric assistant none Anesthesia: general Estimated blood loss: 150 - 200 ml's Transfusion Required none Specimen Sent Grafts/Implants Benefix interspinous fusion devices, putty graft Complications none HUGO ENAMORADO MD Mar 04, 2018 18:02
[2018-03-04] MEDS ORDERED: ROPIVACAINE 0.5 % 30 ML VIAL INJ ONE (18:21)
[2018-03-04] MEDS ORDERED: HYDROmorphONE 0.5 MG/0.5 ML SYG IV PRN ×3 (18:30)
--- NOTE | 2018-03-04 19:19 | PAC ---
Date/Time of Note Date/Time of Note DATE: 03/04/18 TIME: 19:18 Post-Anesthesia Notes Post-Anesthesia Note Last documented vital signs Vital Signs Date Temp Pulse Resp B/P (MAP) Pulse Ox O2 O2 Flow FiO2 Time Delivery Rate 03/04/18 78 18:20 03/04/18 98.0 16 137/87 98 Room Air 14:35 (104) Activity: WNL Respiratory function: WNL Cardiovascular function: WNL Mental status: Baseline Pain reasonably controlled: Yes Hydration appropriate: Yes Nausea/Vomiting absent: Yes Comments BP: 139/80 HR: 77 RR: 15 T: 97.7 SaO2: 99 SEJAL JASON MD Mar 04, 2018 19:19
--- NOTE | 2018-03-04 19:27 | NUR ---
RECEIVED PT AT 1805. PT ALERT BUT EXTREMELY RESTLESS. GAVE DILAUDID FOR PAIN RATE OF 7/10. VITAL SIGNS CHECKED Q15 MINS- STABLE (SEE VITAL SIGNS INTERVENTION). PT RECEIVED L2-S1 ISF AND DECOMPRESSION. TEMP 97.0. REPORT GIVEN FROM OR NURSE, PT ALLERGIC TO CODEINE AND PENICILLIN. TALKED TO DR. ENAMORADO, HE SAID NO ACTIVITY RESTRICTIONS. HE ORDERED NS WITH 20KCL AND ANCEF. PT GIVEN ANCEF IN OR, NO REACTION WAS NOTED BUT TALKED TO PHARMACIST AND SAID BC IT WAS GIVEN IN OR AND PT DIDNT HAVE REACTION, IT WAS OK TO GIVE. PT SON AT BEDSIDE. ALL INFORMATION ENDORSED TO SALES ANALYTICS MANAGER NURSE.
[2018-03-04] MEDS: NS + KCL 20 MEQ 1,000 ML IV SCH (20:51)
[2018-03-04] MEDS: CEFAZOLIN 2 GM/50 ML (PMX) 50 ML IVPB SCH (21:16)
[2018-03-04] MEDS: NICOTINE (21 MG/24 HR) PATCH TRANSDERM SCH (22:36)
[2018-03-05] VITALS (23 sets, daily range): BP systolic 107–144; BP diastolic 54–84; PULSE 76–96; RESP 11–26
[2018-03-05] MEDS: HYDROmorphONE 0.5 MG/0.5 ML SYG IV PRN ×2 (02:48→07:54)
[2018-03-05] MEDS: CEFAZOLIN 2 GM/50 ML (PMX) 50 ML IVPB SCH ×3 (05:27→22:06)
[2018-03-05] MEDS: NS + KCL 20 MEQ 1,000 ML IV SCH ×3 (05:27→19:17)
--- NOTE | 2018-03-05 06:22 | NUR ---
End of shift report pt slept well most of the night. Pt repositioned self in bed. Educated patient on proper body alignment. Pt was able to ambulate to the bathroom with assistance. vitals wnl. abdiel drain in place, no s.s of infection. Surgical incision is closed, no s/s of infection or drainage.
[2018-03-05] MEDS: NICOTINE (21 MG/24 HR) PATCH TRANSDERM SCH (07:54)
[2018-03-05] MEDS: FAMOTIDINE 20 MG INJ IV SCH (07:56)
--- NOTE | 2018-03-05 11:06 | PN ---
Date/Time of Note Date/Time of Note DATE: 03/05/18 TIME: 11:02 Assessment/Plan VTE Prophylaxis Risk score (from Ns)>0 risk: 6 SCD applied (from Ns): Yes Pharmacological prophylaxis: NA/contraindicated Pharm contraindication: surgical contra Lines/Catheters IV Catheter Type [facility]from [facility]): Mid Line Urinary Cath still in place: Yes Reason Cath still needed: skin wounds contaminated by urine Assessment/Plan Assessment/Plan doppler L LE r/o DVT Subjective 24 Hr Interval Summary Free Text/Dictation s/p ISF L2-S1 pop d#1 Incision CDI, drain DC'd Neuroexam unremarkable c/o of mild L foot numbness L LE swelling 5/5 all 4E equivocal ananth's sign A/P: stat L LE doppler to r/o DVT Bed rest. will defer to Dr. Sanders for medical management Exam/Review of Systems Vital Signs Vitals Vital Signs Date Temp Pulse Resp B/P (MAP) Pulse Ox O2 O2 Flow FiO2 Time Delivery Rate 03/05/18 91 08:08 03/05/18 98.8 22 119/54 100 Room Air 08:00 (75) Intake and Output 03/04/18 03/04/18 03/05/18 1515:00 23:00 07:00 IntakeIntake Total 1750 ml 850 ml OutputOutput Total 500 ml 805 ml BalanceBalance 1250 ml 45 ml HUGO ENAMORADO MD Mar 05, 2018 11:06
[2018-03-05] MEDS: HYDROCODONE/APAP (5/325) TAB PO PRN (11:12)
[2018-03-05] MEDS: METHADONE (1 MG/1 ML PO SYG) PO SCH ×2 (11:33→22:05)
[2018-03-05] MEDS: HYDROmorphONE 1 MG/ML SYG IV PRN ×3 (12:13→20:12)
--- NOTE | 2018-03-05 13:30 | NUR ---
Dr. Hutchinson present at bedside late morning , removed EMY drain from R lower back, gauze and tegaderm placed over. Notified him of new onset LLE numbness (pt states he feels like "his leg is asleep"), [facility] intat. OK'd to transfer upstairs to med/surg pending US of LLE. Sue otero'angelica'branden. Requiring frequent doses of pain medication. 2 person assist to ambulate to toilet. Addendum: 03/05/18 at 1655 by KAIT THOMPSON RN Clarified activity orders. Placed order for PT and Dr. Hutchinson requested he only get out of bed with PT until they clear him to ambulate. Lumbar Support Ortho brace required, son states he has the brace with him. Addendum: 03/05/18 at 1843 by KAIT THOMPSON RN Pt is also moving around in bed on his own even though RN has attempted to explain importance of proper body alignment and assisting with movement.
--- NOTE | 2018-03-05 13:34 | PN ---
Date/Time of Note Date/Time of Note DATE: 03/05/18 TIME: 13:33 Assessment/Plan VTE Prophylaxis Risk score (from Nsg)>0 risk: 6 SCD applied (from Ns): Yes SCD contraindicated: other Pharmacological prophylaxis: other Lines/Catheters IV Catheter Type (from Nrsg): Mid Line Central line still needed: Yes Urinary Cath still in place: Yes Reason Cath still needed: urinary retention Assessment/Plan Assessment/Plan - Acute on chronic intractable neck pain - Acute intractable back pain. - per neurosurgery- surgery today - pain management - SP Posterior cervical fusion and anterior lumbar fusion on Jan 2018 - Current Tobaccoism - smoking cessation - Multi drug allergy - Homelessness - will get social sciences department chair consult Dw Dr Wheatley/ staff Exam/Review of Systems Vital Signs Vitals Vital Signs Date Temp Pulse Resp B/P (MAP) Pulse Ox O2 O2 Flow FiO2 Time Delivery Rate 03/05/18 86 12:13 03/05/18 98.8 18 127/70 100 Room Air 12:00 (89) Intake and Output 03/04/18 03/04/18 03/05/18 1515:00 23:00 07:00 IntakeIntake Total 1750 ml 850 ml OutputOutput Total 500 ml 805 ml BalanceBalance 1250 ml 45 ml MARITA AUGUST Mar 05, 2018 13:34
[2018-03-05] MEDS: DOCUSATE SODIUM 100 MG CAP PO SCH ×2 (14:45→20:19)
[2018-03-05] MEDS: BISACODYL (EC) 5 MG TAB PO SCH (14:45)
--- NOTE | 2018-03-05 14:52 | PN ---
DATE: 03/04/2018 SUBJECTIVE: Follow up on posterior cervical fusion and anterior lumbar fusion. The patient is sched uled to undergo posterior fixation with possible decompression on 03/05/2018. No chest pain, short o f breath. No reported fever or chills. No reported nausea, vomiting. PHYSICAL EXAMINATION: GENERAL: Revealed the patient to be awake, alert. VITAL SIGNS: Temperature 98.5, pulse 79, respiration 18, blood pressure 140/57, O2 saturation 98% on room air. HEENT: No eye discharge or redness. Conjunctivae are normal. Nose is normal. NECK: No JVD. CHEST: Clear. CARDIOVASCULAR: S1, S2 normal. No murmur. ABDOMEN: Soft, nondistended. EXTREMITIES: No leg edema. NEUROLOGIC: The patient is awake, alert and oriented. IMPRESSION: Chronic back and neck pain status post cervical decompression and fusion on 01/11/2018, status post anterior lumbar interbody fusion on 01/19/2018 and the patient is scheduled to undergo po sterior fixation and possible decompression. We will continue to follow him postoperatively. Dictated By: ALL MCMILLAN/NTS Conf#: [id number] DID#: [id number] CC: THUAN LARSEN MD;*EndCC*
--- NOTE | 2018-03-05 17:31 | NUR ---
Report called to [facility] on [facility]. Patient treated with pain medication just before 1600 and is currently comfortable in bed, although transferring to stretcher will likely be difficult for him. VSS. Rogers previously dc'd, patient has not voided at this time. Received order for bowel meds, patient states he has had not had a BM since Thursday. Received PT and activity orders. Pharmacy called and requested new bag of IVF be sent to [facility] d/t patient requiring new bag within the next 30 minutes.
--- NOTE | 2018-03-05 18:45 | NUR ---
Pts IVF have been off since 1829 d/t replacement bag being sent to [facility] at my request since patient was expected to be transferred almost 2 hours ago but d/t delays with transport pt remains in ICU.
--- NOTE | 2018-03-05 20:11 | NUR ---
Dai arrived to unit around 1909. Gave report to TONE Grayson. Patient a and o x 4, reports his pain is tolerable at this time as long as he does not reposition to much. given dinner, oriented to room- patient stated he has been on unit before and is aware. IV fluids started. Patient eating dinner at end of report.
[2018-03-05] MEDS: FAMOTIDINE 20 MG TAB PO SCH (20:19)
[2018-03-06] MEDS: HYDROmorphONE 1 MG/ML SYG IV PRN ×6 (01:16→23:48)
[2018-03-06 02:00] VITALS: BP 127/81; PULSE 97; RESP 20
[2018-03-06] MEDS: METHADONE (1 MG/1 ML PO SYG) PO SCH ×3 (05:40→22:08)
[2018-03-06] MEDS: NS + KCL 20 MEQ 1,000 ML IV SCH ×2 (05:40→20:34)
[2018-03-06] MEDS: CEFAZOLIN 2 GM/50 ML (PMX) 50 ML IVPB SCH ×2 (05:40→13:14)
[2018-03-06] MEDS: HYDROCODONE/APAP (5/325) TAB PO PRN ×3 (06:43→20:33)
--- NOTE | 2018-03-06 06:54 | NUR ---
EOSS Patient alert oriented vital sign stable no respiratory distress. Incision on the back was CDI open to air, integumentary assessment done verified with anoterr TONE kenyon picture was taken. Voiding adequatelu using urinal. Patient able to repositioned self side to side. No nausea no vomiting, pain controlled with Dilaudid, Methadone. Encouraged to use Is. All needs attended, call light is within reach, hourly rounding done.
[2018-03-06 07:54] VITALS: BP 113/58; PULSE 76; RESP 18
[2018-03-06] MEDS: FAMOTIDINE 20 MG TAB PO SCH ×2 (08:58→20:33)
[2018-03-06] MEDS: DOCUSATE SODIUM 100 MG CAP PO SCH ×2 (08:59→20:33)
[2018-03-06] MEDS: BISACODYL (EC) 5 MG TAB PO SCH (09:02)
[2018-03-06] MEDS: NICOTINE (21 MG/24 HR) PATCH TRANSDERM SCH (09:05)
--- NOTE | 2018-03-06 09:54 | NUR ---
PT NOTE , ORDER ACKNOWLEDGED , CHART REVIEW COMPLETED , PATIENT OWNS LSO BRACE , ATTEMPTED PT EVALUATION , PER RN REPORT PATIENT JUST RECEIVED PAIN MEDICATION AND PATIENT IS IN DEEP SLEEP , PLAN TO RETURN LATER TODAY, RN NOTIFIED .
--- NOTE | 2018-03-06 12:01 | PN ---
Date/Time of Note Date/Time of Note DATE: 03/06/18 TIME: 12:00 Assessment/Plan VTE Prophylaxis Risk score (from Nsg)>0 risk: 4 SCD applied (from Nsg): Yes Pharmacological prophylaxis: LMWH Lines/Catheters IV Catheter Type (from Nrsg): Mid Line Urinary Cath still in place: Yes Reason Cath still needed: skin wounds contaminated by urine Assessment/Plan Hospital Course Chronic back and neck pain status post cervical decompression and fusion on 01/11/2018, status post anterior lumbar interbody fusion on 01/19/2018 and the patient is scheduled to undergo posterior fixation and possible decompression. We will continue to follow him postoperatively. Subjective 24 Hr Interval Summary Free Text/Dictation Patient continues to have back pain Exam/Review of Systems Vital Signs Vitals Vital Signs Date Temp Pulse Resp B/P (MAP) Pulse Ox O2 O2 Flow FiO2 Time Delivery Rate 03/06/18 99.3 76 18 113/58 95 07:54 (76) 03/06/18 Room Air 02:00 Intake and Output 03/05/18 03/05/18 03/06/18 1515:00 23:00 07:00 IntakeIntake Total 2000 ml 660 ml 1050 ml OutputOutput Total 550 ml 350 ml 600 ml BalanceBalance 1450 ml 310 ml 450 ml Exam Constitutional: well developed Head: normocephalic, atraumatic Neck: supple Respiratory: diminished breath sounds Cardiovascular: regular rate and rhythm Gastrointestinal: soft, non-tender Extremities: normal pulses THUAN LARSEN Mar 06, 2018 12:01
--- NOTE | 2018-03-06 13:47 | NUR ---
PT NOTE [facility] Patient: Jerad Bateman : 1955 Age/Sex: 62/M Unit#: [id number] Room/Bed: 424/A User: Virginia Rowland PTA Date: 03/06/18 13:47 Type: PT Technical Record Therapy day number 2 Subjective Current complaint of pain Pain Scale NUMERIC Pain Intensity 10 (0-10) Patient Stated Goal for Pain Relief 0 (0-10) Pain Level Comment back pain Transfer Training Start Time 13:05 Supine to Sit Contact Guard Assist Transfer Sit to Stand Ability Contact Guard Assist Bed Mobility Sit to Supine Contact Guard Assist Transfer Training End Time 13:23 Total Transfer Training Time 18 min (8-127) Patient uses wheelchair Not Applicable Gait Training Start Time 13:23 Gait Assist Levels Minimum Assist Assistive Devices Front Wheel Walker Ambulation Distance 100 feet Additional Gait Comments dec step length/stride, NBOS, inc hand pressure on FWW Gait Training End Time 13:47 Total Gait Training Treatment Time 24 min (8-127) Weight Bearing Assessment Label Bilat Lower Extremity Weight Bearing Status Full Weight Bearing Additional Stairs Assist Comments TBA Static Sitting Balance Good Dynamic Sitting Balance Good Standing Static Balance Fair plus Dynamic Standing Balance Fair plus Additional Balance Assessments Comments FWW Safety Judgement Fair Activity Tolerance Fair Additional Equipment Present LSO brace Post Treatment Pain Intensity 10 0-10 Variance Documentation See PT note Total Treament Time 42 min (8-127) Total Minutes 42 Total Units 3 PT Technical Record Comment PT NOTE S: TONE Jacobson cleared pt for PT. Pt c/o 10/10 surgical back pain and was premedicated. Agreeable to tx O: Received pt semifowler w/ RN present in room. See above for assist levels. Independent to don/doff LSO brace. Gait training x 100' and presented with slow candence, decreased step length/stride, NBOS, and increased hand pressure on FWW. Instructed pt to reduce pressure on FWW however pt c/o increasing back pain when doing so. Required 1 standing rest break d/t fatigue and pain. Returned pt back to room/bed. Positioned pt to comfort in semifowler. Call light/phone within reach. Bed alarm on. Needs met A: Fair tolerance to tx. Limited due to pain however pt motivated. Improved gait distance and good understanding of spinal precautions P: continue w/ POC and progress as tolerated
[2018-03-06 15:20] VITALS: BP 132/70; PULSE 91; RESP 18
--- NOTE | 2018-03-06 19:10 | NUR ---
END OF SHIFT: PATIENT RESTING IN BED, PATIENT GIVEN PRN DILAUDID AND NORCO AROUND THE CLOCK. PT CLEARED TO WALK WITH NURSING, BRACE ON AT ALL TIMES WHILE WALKING. PT VOIDING IN URINAL. NO BM, PATIENT GIVEN ORAL BM MEDICATIONS, PT REFUSED TO HAVE SUPPOSITORY ORDERED. VSS DURING SHIFT. MIDLINE PATENT WITH BRISK BLOOD RETURN. HOURLY ROUNDING DONE DURING SHIFT, CALL LIGHT WITHIN REACH, FALL PRECAUTIONS OBSERVED, PT ABLE TO VERBALIZE NEEDS, WILL ENDORSE TO NIGHT RN.
[2018-03-06 19:45] VITALS: BP 136/77; PULSE 97; RESP 20
[2018-03-07] MEDS: HYDROmorphONE 1 MG/ML SYG IV PRN ×4 (01:38→23:58)
[2018-03-07 02:50] VITALS: BP 120/66; PULSE 86; RESP 20
[2018-03-07] MEDS: HYDROCODONE/APAP (5/325) TAB PO PRN ×3 (03:43→17:26)
[2018-03-07] MEDS: METHADONE (1 MG/1 ML PO SYG) PO SCH ×4 (05:36→21:21)
--- NOTE | 2018-03-07 06:16 | NUR ---
EOSS Patient alert, oriented able to sleep through the night pain controlled with Dilaudid, [place] and Methadone. Incision on the back was open to air CDI, the drain site dressing was saturated with serosanguinous, changed dressing twice. Patient able to turn on his side. No nausea no vomiting, diet tolerated. Voiding adequately using the urinal. All needs attended, call light is within reach.
[2018-03-07] MEDS ORDERED: AMLO-218 PO (06:38)
[2018-03-07] MEDS ORDERED: LOSA100T8 PO (06:38)
[2018-03-07] MEDS ORDERED: METO-429 PO (06:38)
[2018-03-07] MEDS: NS + KCL 20 MEQ 1,000 ML IV SCH ×2 (06:54→17:25)
[2018-03-07 07:33] VITALS: BP 102/59; PULSE 76; RESP 18
[2018-03-07] MEDS: BISACODYL (EC) 5 MG TAB PO SCH (09:16)
[2018-03-07] MEDS: DOCUSATE SODIUM 100 MG CAP PO SCH ×2 (09:16→20:24)
[2018-03-07] MEDS: FAMOTIDINE 20 MG TAB PO SCH ×2 (09:17→20:24)
[2018-03-07] MEDS: NICOTINE (21 MG/24 HR) PATCH TRANSDERM SCH (09:17)
--- NOTE | 2018-03-07 09:30 | NUR ---
PT NOTE Therapy day number 2 Subjective Current complaint of pain Pain Scale FACES Pain Intensity 5 (0-10) Patient Stated Goal for Pain Relief 0 (0-10) Pain Level Comment back pain, L hip pain Supine to Sit Stand by Assist Transfer Sit to Stand Ability Stand by Assist Bed Mobility Sit to Supine Stand by Assist Patient uses wheelchair Not Applicable Gait Training Start Time 09:30 Gait Assist Levels Contact Guard Assist Assistive Devices Front Wheel Walker Ambulation Distance 200 feet Additional Gait Comments slow sg, increased B UE support, VC for posture Gait Training End Time 09:53 Total Gait Training Treatment Time 23 min (8-127) Weight Bearing Assessment Label Bilat Lower Extremity Weight Bearing Status Full Weight Bearing Additional Stairs Assist Comments TBA Static Sitting Balance Good Dynamic Sitting Balance Good Standing Static Balance Good Dynamic Standing Balance Fair plus Additional Balance Assessments Comments FWW Safety Judgement Fair Activity Tolerance Good Additional Equipment Present LSO Post Treatment Pain Intensity 5 0-10 Variance Documentation SEE PT NOTE Total Treament Time 23 min (8-127) Total Minutes 23 Total Units 2 PT Technical Record Comment PT NOTE S: Pt reports feeling better today O: TONE Jacobson cleared pt for session. Pt received in bed, son at bedside, re-educated in spinal precautions. Pt donned LSO for all OOB activities, requiring Annalise to don. Pt participated in interventions above. Pt returned to bed, all needs in [facility], bed alarm activated. RN notified of pt's status A: Pt demonstrates improved activity tolerance, amb 200' this session with very slow sg, short stride length. Maintains spinal precautions with all mobility P: Attempt stair training as able, continue c PT POC PT CLEARED TO AMB WITH NURSING STAFF USING FWW
--- NOTE | 2018-03-07 11:25 | PN ---
Date/Time of Note Date/Time of Note DATE: 03/07/18 TIME: 11:24 Assessment/Plan VTE Prophylaxis Risk score (from Nsg)>0 risk: 4 SCD applied (from Nsg): Yes Pharmacological prophylaxis: LMWH Lines/Catheters IV Catheter Type (from Nrsg): Mid Line Urinary Cath still in place: Yes Reason Cath still needed: skin wounds contaminated by urine Assessment/Plan Hospital Course Chronic back and neck pain status post cervical decompression and fusion on 01/11/2018, status post anterior lumbar interbody fusion on 01/19/2018 and the patient is scheduled to undergo posterior fixation and possible decompression. We will continue to follow him postoperatively. Subjective 24 Hr Interval Summary Free Text/Dictation Patient still has back pain but is improving his distancing ambulating Exam/Review of Systems Vital Signs Vitals Vital Signs Date Temp Pulse Resp B/P (MAP) Pulse Ox O2 O2 Flow FiO2 Time Delivery Rate 03/07/18 98.3 76 18 102/59 99 Room Air 07:33 (73) Intake and Output 03/06/18 03/06/18 03/07/18 1515:00 23:00 07:00 IntakeIntake Total 50 ml 1840 ml 1240 ml OutputOutput Total 1900 ml 800 ml BalanceBalance 50 ml -60 ml 440 ml Exam Constitutional: well developed Head: normocephalic, atraumatic Neck: supple Respiratory: diminished breath sounds Cardiovascular: regular rate and rhythm Gastrointestinal: soft, non-tender Extremities: normal pulses THUAN LARSEN Mar 07, 2018 11:25
[2018-03-07 14:27] VITALS: BP 116/97; PULSE 97; RESP 18
--- NOTE | 2018-03-07 18:02 | NUR ---
END OF SHIFT: PATIENT RESTING IN BED, PATIENT GIVEN PRN DILAUDID AND NORCO AROUND THE CLOCK. PT CLEARED TO WALK WITH NURSING, BRACE ON AT ALL TIMES WHILE WALKING. PT VOIDING IN URINAL. PATIENT HAD VERY LARGE BM IN AM. VSS DURING SHIFT. MIDLINE PATENT WITH BRISK BLOOD RETURN. HOURLY ROUNDING DONE DURING SHIFT, CALL LIGHT WITHIN REACH, FALL PRECAUTIONS OBSERVED, PT ABLE TO VERBALIZE NEEDS, WILL ENDORSE TO NIGHT RN.
[2018-03-07 19:50] VITALS: BP 111/73; PULSE 84; RESP 18
[2018-03-08 02:12] VITALS: BP 126/64; PULSE 90; RESP 18
[2018-03-08] MEDS: HYDROCODONE/APAP (5/325) TAB PO PRN ×5 (03:21→21:49)
[2018-03-08] MEDS: METHADONE (1 MG/1 ML PO SYG) PO SCH ×3 (06:01→21:11)
--- NOTE | 2018-03-08 06:07 | NUR ---
PT REQUESTING BED BATH AT THIS TIME. SET UP DONE BY RESIDENTIAL CAREGIVER. DSG AT OLD PUNCTURE SITED CHANGED 4X, AND EACH TIME DSG WAS COMPLETELY SATURATED WITH SEROUS DRAINAGE. ALSO BED CHANGED ET PJ'S CHANGED EACH TIME. MEDICATED PRN FOR PAIN X2 WITH EFFECTIVENESS REPORTED. EARLIER PT INADVERTENTLY PULLED OUT MIDLINE, DR LARSEN NOTIFIED ET HE HELD IVF AND INCREASED NORCO TO 2 TABS. HE WILL REASSESS PT IN AM. VSS AFEBRILE. WILL CONTINUE TO MONITOR
--- NOTE | 2018-03-08 07:55 | NUR ---
PT NOTE Therapy day number 3 Subjective Current complaint of pain Pain Scale NUMERIC Pain Intensity 7 (0-10) Patient Stated Goal for Pain Relief 0 (0-10) Pain Level Comment back pain Transfer Training Start Time 07:55 Supine to Sit Supervised Transfer Sit to Stand Ability Stand by Assist Bed Mobility Sit to Supine Supervised Toileting Ability Modified Independent Transfer Training End Time 08:10 Total Transfer Training Time 15 min (8-127) Patient uses wheelchair Not Applicable Gait Training Start Time 08:10 Gait Assist Levels Stand by Assist Assistive Devices Front Wheel Walker Ambulation Distance 250 feet Additional Gait Comments slow sg, decreased step length/stride, low foot clearance Gait Training End Time 08:35 Total Gait Training Treatment Time 25 min (8-127) Weight Bearing Assessment Label Bilat Lower Extremity Weight Bearing Status Full Weight Bearing Additional Stairs Assist Comments TBA Static Sitting Balance Good Dynamic Sitting Balance Good Standing Static Balance Good Dynamic Standing Balance Fair plus Additional Balance Assessments Comments FWW Safety Judgement Fair Activity Tolerance Good Additional Equipment Present LSO Post Treatment Pain Intensity 9 0-10 Variance Documentation SEE BELOW AND PT NOTE Total Treament Time 40 min (8-127) Total Minutes 40 Total Units 3 PT Technical Record Comment PT NOTE S: Pt stated, "I have pain and need to go to the bathroom first." Agreeable for PT and cleared per TONE Avilez. O: Received pt in semi-fowlers, asleep. VCs to rouse. Bed mobility log roll method Supervised. Pt donned/doffed LSO brace at EOB Independently. Applied gait belt. STS to FWW SBA. Assisted pt to toilet per pt's request Carlyle. Gait training performed w/FWW 250' SBA/Supervised. Noted slow sg, decreased step length/stride, low foot clearance, increased BUE pressure on AD, (B) shoulder tension, and occasionally flexed posture. Pt required VCs/TCs to correct posture, decrease BUE pressure from AD, relax shoulders, and increase step length/stride/foot clearance. Pt verbalized and demonstrated w/fair return. Assisted pt back to room BTB. Left pt in comfort position, call light/phone within reach, bed alarmed, and all needs met. TONE Avilez informed of pt's status. A: Good tolerance to tx. Pt showed no signs of distress or SOB during or after tx. No c/o dizziness or nausea throughout tx. Bed mobility and gait assistance/distance improved compared to previous tx. P: Continue POC and progress as tolerated.
[2018-03-08 08:25] VITALS: BP 133/74; PULSE 64; RESP 18
[2018-03-08] MEDS: BISACODYL (EC) 5 MG TAB PO SCH (08:33)
[2018-03-08] MEDS: DOCUSATE SODIUM 100 MG CAP PO SCH ×2 (08:33→21:11)
[2018-03-08] MEDS: FAMOTIDINE 20 MG TAB PO SCH ×2 (08:33→21:11)
[2018-03-08] MEDS: NICOTINE (21 MG/24 HR) PATCH TRANSDERM SCH (08:34)
--- NOTE | 2018-03-08 11:36 | PN ---
Date/Time of Note Date/Time of Note DATE: 03/08/18 TIME: 11:36 Assessment/Plan VTE Prophylaxis Risk score (from Nsg)>0 risk: 7 SCD applied (from Nsg): Yes Pharmacological prophylaxis: LMWH Lines/Catheters IV Catheter Type (from Nrsg): Mid Line Urinary Cath still in place: Yes Reason Cath still needed: skin wounds contaminated by urine Assessment/Plan Hospital Course Chronic back and neck pain status post cervical decompression and fusion on 01/11/2018, status post anterior lumbar interbody fusion on 01/19/2018 and the patient is scheduled to undergo posterior fixation and possible decompression. We will continue to follow him postoperatively. Subjective 24 Hr Interval Summary Free Text/Dictation Patient doing more walking, still has some pain in back Exam/Review of Systems Vital Signs Vitals Vital Signs Date Temp Pulse Resp B/P (MAP) Pulse Ox O2 O2 Flow FiO2 Time Delivery Rate 03/08/18 98.3 64 18 133/74 99 Room Air 08:25 (93) Intake and Output 03/07/18 03/07/18 03/08/18 1515:00 23:00 07:00 IntakeIntake Total 240 ml 1340 ml 600 ml OutputOutput Total 301 ml 500 ml BalanceBalance -61 ml 840 ml 600 ml Exam Constitutional: well developed Head: normocephalic, atraumatic Neck: supple Respiratory: diminished breath sounds Cardiovascular: regular rate and rhythm Gastrointestinal: soft, non-tender Extremities: normal pulses THUAN LARSEN Mar 08, 2018 11:36
--- NOTE | 2018-03-08 11:53 | NUR ---
PT NOTE Therapy day number 3 Subjective Current complaint of pain Pain Scale NUMERIC Pain Intensity 9 (0-10) Patient Stated Goal for Pain Relief 0 (0-10) Pain Level Comment back pain Transfer Training Start Time 11:53 Supine to Sit Minimum Assist Transfer Sit to Stand Ability Stand by Assist Bed Mobility Sit to Supine Supervised Transfer Training End Time 12:10 Total Transfer Training Time 17 min (8-127) Patient uses wheelchair Not Applicable Gait Training Start Time 12:10 Gait Assist Levels Stand by Assist Assistive Devices Front Wheel Walker Ambulation Distance 280 feet Additional Gait Comments slow sg, decreased step length/stride, low foot clearance Gait Training End Time 12:35 Total Gait Training Treatment Time 25 min (8-127) Weight Bearing Assessment Label Bilat Lower Extremity Weight Bearing Status Full Weight Bearing Stair Climbing Ability Contact Guard Assist Number of Stairs 4 Stairs Additional Stairs Assist Comments 4 steps x 2 using (B) rails, step to pattern w/VCs for sequence Static Sitting Balance Good Dynamic Sitting Balance Good Standing Static Balance Good Dynamic Standing Balance Fair plus Additional Balance Assessments Comments FWW Safety Judgement Fair Activity Tolerance Good Additional Equipment Present LSO Post Treatment Pain Intensity 10 0-10 Variance Documentation SEE BELOW AND PT NOTE Total Treament Time 42 min (8-127) Total Minutes 42 Total Units 3 PT Technical Record Comment PT NOTE S: Pt stated, "I am in pain and feel tired." Agreeable for PT and cleared per TONE Avilez. O: Received pt in semi-fowlers, asleep. VCs to rouse. Bed mobility log roll method Earle w/TAPPER BALANCE WHEEL SCREW HOLE per pt's request sup>sit due to pain. Pt donned/doffed LSO brace at EOB Independently. Applied gait belt. STS to FWW SBA. Gait training performed w/FWW 280' SBA. Noted slow sg, reciprocal gait w/no LOB/buckling, decreased step length/stride, low foot clearance, NBOS, occasionally increased BUE pressure on AD, (B) shoulder tension, and occasionally flexed posture. Pt required Min VCs/TCs to correct posture, decrease BUE pressure from AD, relax shoulders, and increase step length/BIN/stride/foot clearance. Pt verbalized and demonstrated w/fair return. Stairs training performed 4 steps x 2 using (B) rails, step to pattern w/VCs for sequence CGA. Assisted pt back to room BTB. Left pt in comfort position, call light/phone within reach, bed alarmed, and all needs met. RN Fatmata informed of pt's status. A: Good tolerance to tx. Pt showed no signs of distress or SOB during or after tx. No c/o dizziness or nausea throughout tx. Gait distance improved compared to previous tx. P: Continue POC and progress as tolerated.
[2018-03-08 15:24] VITALS: BP 117/76; PULSE 75; RESP 18
--- NOTE | 2018-03-08 18:32 | NUR ---
END OF SHIFT NOTE: Patient had no acute events noted. Pain well managed with norco and methadone. Patient drain site was leaking yellowish non-odorous fluid; changed drain site four times on shift. Patient tolerating diet without any nausea or vomiting. Patient ambulating with steady gait and wearing TLSO brace when OOB.
[2018-03-08 20:20] VITALS: BP 104/70; PULSE 76; RESP 20
[2018-03-09] MEDS: HYDROCODONE/APAP (5/325) TAB PO PRN ×2 (01:54→13:06)
[2018-03-09 02:17] VITALS: BP 121/66; PULSE 72; RESP 17
[2018-03-09] MEDS: METHADONE (1 MG/1 ML PO SYG) PO SCH ×3 (05:46→22:07)
--- NOTE | 2018-03-09 06:24 | NUR ---
PT MEDICATED FOR PAIN Q 4HRS PRN ATC WITH EFFECTIVENESS REPORTED. VSS AFEBRILE. NO NEW COMPLAINTS VERBALIZED. INDEPENDENT WITH BED MOBILITY. RESTING WITH EYES CLOSED AT THIS TIME NO SS DISCOMFORT NOTED. WILL CONTINUE POC
[2018-03-09 07:22] VITALS: BP 105/58; PULSE 77; RESP 18
[2018-03-09] MEDS: FAMOTIDINE 20 MG TAB PO SCH ×2 (09:06→22:06)
[2018-03-09] MEDS: BISACODYL (EC) 5 MG TAB PO SCH (09:06)
[2018-03-09] MEDS: DOCUSATE SODIUM 100 MG CAP PO SCH ×2 (09:06→22:06)
[2018-03-09] MEDS: NICOTINE (21 MG/24 HR) PATCH TRANSDERM SCH (09:07)
--- NOTE | 2018-03-09 09:28 | NUR ---
PT NOTE Therapy day number 4 Subjective Current complaint of pain Pain Scale NUMERIC Pain Intensity 6 (0-10) Patient Stated Goal for Pain Relief 0 (0-10) Pain Level Comment BACK PAIN Transfer Training Start Time 09:28 Transfer Sit to Stand Ability Supervised Bed Mobility Sit to Supine Supervised Transfer Training End Time 09:39 Total Transfer Training Time 11 min (8-127) Patient uses wheelchair Not Applicable Gait Training Start Time 09:39 Gait Assist Levels Stand by Assist Assistive Devices Front Wheel Walker Ambulation Distance 350 feet Additional Gait Comments steady sg, decreased step length/stride, low foot clearance, reciproca Gait Training End Time 09:59 Total Gait Training Treatment Time 20 min (8-127) Weight Bearing Assessment Label Bilat Lower Extremity Weight Bearing Status Full Weight Bearing Static Sitting Balance Good Dynamic Sitting Balance Good Standing Static Balance Good Dynamic Standing Balance Fair plus Additional Balance Assessments Comments FWW Safety Judgement Fair Activity Tolerance Good Additional Equipment Present LSO Post Treatment Pain Intensity 6 0-10 Variance Documentation SEE BELOW AND PT NOTE Total Treament Time 31 min (8-127) Total Minutes 31 Total Units 2 PT Technical Record Comment PT NOTE S: Pt stated, "I am ready to go." Agreeable for PT and cleared per TONE Jacobo. O: Received pt sitting EOB w/food tray in front. Pt donned/doffed LSO brace at EOB Independently. Applied gait belt. STS to FWW Supervised. Gait training performed w/FWW 350' SBA/Supervised. Noted steady sg, decreased step length/stride, low foot clearance, reciprocal pattern w/no LOB/buckling, occasionally increased BUE pressure on AD, (B) shoulder tension, and occasionally flexed posture. Pt required occasionally VCs/TCs to correct posture, decrease BUE pressure from AD, relax shoulders, and increase step length/stride/foot clearance. Pt verbalized and demonstrated w/fair return. Assisted pt back to room BTB. Left pt in comfort position, call light/phone within reach, bed alarmed, and all needs met. TONE Jacobo informed of pt's status. A: Good tolerance to tx. Pt showed no signs of distress or SOB during or after tx. No c/o dizziness or nausea throughout tx. Transfers and gait distance improved compared to previous tx. P: Continue POC and progress as tolerated.
--- NOTE | 2018-03-09 11:51 | PN ---
Date/Time of Note Date/Time of Note DATE: 03/09/18 TIME: 11:50 Assessment/Plan VTE Prophylaxis Risk score (from Ns)>0 risk: 4 SCD applied (from Nsg): Yes Pharmacological prophylaxis: LMWH Lines/Catheters IV Catheter Type (from Nrsg): Mid Line Urinary Cath still in place: Yes Reason Cath still needed: skin wounds contaminated by urine Assessment/Plan Hospital Course Chronic back and neck pain status post cervical decompression and fusion on 01/11/2018, status post anterior lumbar interbody fusion on 01/19/2018 and the patient is scheduled to undergo posterior fixation and possible decompression. We will continue to follow him postoperatively. Subjective 24 Hr Interval Summary Free Text/Dictation Patient is still having postoperative pain but he is more mobile. Exam/Review of Systems Vital Signs Vitals Vital Signs Date Temp Pulse Resp B/P (MAP) Pulse Ox O2 O2 Flow FiO2 Time Delivery Rate 03/09/18 98.3 77 18 105/58 100 Room Air 07:22 (74) Intake and Output 03/08/18 03/08/18 03/09/18 1515:00 23:00 07:00 IntakeIntake Total 300 ml 400 ml OutputOutput Total 650 ml 1000 ml BalanceBalance -350 ml -600 ml Exam Constitutional: well developed Head: normocephalic, atraumatic Neck: supple Respiratory: diminished breath sounds Cardiovascular: regular rate and rhythm Gastrointestinal: soft, non-tender Extremities: normal pulses Medications Medications Current Medications IV Flush (NS 3 ml) 3 ml PER PROTOCOL IV ; Start 02/28/18 at 20:30 Ondansetron HCl (Zofran Inj) 4 mg Q6H PRN IV NAUSEA AND/OR VOMITING; Start 02/28/18 at 20:30 Potassium Chloride/Sodium Chloride 1,000 ml @ 100 mls/hr Q10H IV Last administered on 03/07/18at 17:25; Admin Dose 100 MLS/HR; Start 03/04/18 at 20 :00; Status Hold Nicotine (Nicoderm 21 Mg/ 24hr) 1 patch DAILY TRANSDERM Last administered on 03/09/18at 09:07; Admin Dose 1 PATCH; Start 03/04/18 at 22:00 Hydromorphone HCl (Dilaudid) 1 mg Q3H PRN IV SEVERE PAIN LEVEL 7-10 Last administered on 03/07/18at 23:58; Admin Dose 1 MG; Start 03/05/18 at 10:30 Methadone HCl (Methadone Liq (Ped)) 2 mg Q8 PO Last administered on 03/09/18 05:46; Admin Dose 2 MG; Start 03/05/18 at 11:00 Famotidine (Pepcid) 20 mg Q12 PO Last administered on 03/09/18 09:06; Admin Dose 20 MG; Start 03/05/18 at 21:00 Docusate Sodium (Colace) 100 mg BID PO Last administered on 03/09/18at 09:06; Admin Dose 100 MG; Start 03/05/18 at 14:30 Bisacodyl (Dulcolax) 10 mg DAILY PO Last administered on 03/09/18 09:06; Admin Dose 10 MG; Start 03/05/18 at 14:30 Acetaminophen/ Hydrocodone Bitart ([place] (5/325)) 2 tab Q4H PRN PO PAIN LEVEL 4-7 Last administered on 03/09/18at 01:54; Admin Dose 2 TAB; Start 03/08/18 at 02:30 THUAN LARSEN Mar 09, 2018 11:51
[2018-03-09 14:37] VITALS: BP 126/69; PULSE 88; RESP 18
--- NOTE | 2018-03-09 18:30 | NUR ---
END OF SHIFT NOTE: Pt worked with PT, brace worn when OOB. Dressing on back changed per pt request. Pt states that he wants to go outside to smoke, reiterated multiple times that pt is not allowed to smoke while admitted in the hospital. Pt showered, OK by Dr. Hutchinson. PO Rand given PRN for pain. VSS, call cummings within reach, hourly rounding maintained.
[2018-03-09 19:32] VITALS: BP 120/56; PULSE 81; RESP 18
[2018-03-10 01:47] VITALS: BP 105/68; PULSE 87; RESP 18
[2018-03-10] MEDS: HYDROCODONE/APAP (5/325) TAB PO PRN ×4 (02:36→23:09)
[2018-03-10] MEDS: METHADONE (1 MG/1 ML PO SYG) PO SCH ×3 (06:37→21:07)
--- NOTE | 2018-03-10 07:36 | NUR ---
End of Shift Summary: S/P L3-S1 Fusion and decompression on 03/04/[address] Hutchinson Patient denies chest pain, palpitations, shortness of breath, nausea, vomiting, headache, cough, or changes in bowel/bladder habits. Patient received methadone for pain management with adequate pain relief noted. Patient tolerated regular diet. Encouraged incentive spirometer use Q1hr x10 while awake. Teaching provided and patient understands instructions. SCD's on left place. Incision is open to air and kept clean, dry, and intact. Patient has no IV site. Last BM on 03/07. Colace given. Safety precautions maintained throughout the shift. Bed in lowest position and bed alarm activated. Call light within reach. Hourly rounding rendered. All needs met.
[2018-03-10 07:41] VITALS: BP 113/62; PULSE 81; RESP 19
[2018-03-10] MEDS: FAMOTIDINE 20 MG TAB PO SCH ×2 (08:28→21:07)
[2018-03-10] MEDS: BISACODYL (EC) 5 MG TAB PO SCH (08:28)
[2018-03-10] MEDS: DOCUSATE SODIUM 100 MG CAP PO SCH ×2 (08:28→21:07)
[2018-03-10] MEDS: NICOTINE (21 MG/24 HR) PATCH TRANSDERM SCH (08:29)
--- NOTE | 2018-03-10 10:35 | NUR ---
PT NOTE Therapy day number 5 Subjective Current complaint of pain Pain Scale NUMERIC Pain Intensity 6 (0-10) Patient Stated Goal for Pain Relief 0 (0-10) Pain Level Comment back pain Transfer Training Start Time 10:35 Supine to Sit Modified Independent Transfer Sit to Stand Ability Supervised Bed Mobility Sit to Supine Modified Independent Transfer Training End Time 10:50 Total Transfer Training Time 15 min (8-127) Patient uses wheelchair Not Applicable Gait Training Start Time 10:50 Gait Assist Levels Supervised Assistive Devices Front Wheel Walker Ambulation Distance 400 feet Additional Gait Comments steady sg, decreased step length/stride, low foot clearance, reciproca Gait Training End Time 11:15 Total Gait Training Treatment Time 25 min (8-127) Weight Bearing Assessment Label Bilat Lower Extremity Weight Bearing Status Full Weight Bearing Static Sitting Balance Good Dynamic Sitting Balance Good Standing Static Balance Good Dynamic Standing Balance Fair plus Additional Balance Assessments Comments FWW Safety Judgement Fair Activity Tolerance Good Additional Equipment Present LSO Post Treatment Pain Intensity 7 0-10 Variance Documentation SEE BELOW AND PT NOTE Total Treament Time 40 min (8-127) Total Minutes 40 Total Units 3 PT Technical Record Comment PT NOTE S: Pt stated, "I am really sleepy and tired, but I can go for a walk right now." Agreeable for PT and cleared per TONE Jacobo. O: Received pt in L side-lying, asleep. VCs to rouse. Bed mobility Carlyle using BR and HOB slightly elevated. Pt donned/doffed LSO brace at EOB Independently. Applied gait belt. STS to FWW Supervised. Gait training performed w/FWW 400' Supervised. Noted steady pace/gait, decreased step ength/stride, low foot clearance, reciprocal pattern w/no LOB/buckling, occasionally Min BUE pressure on AD, (B) shoulder tension, and occasionally flexed posture. Pt required Min VCs/TCs to correct posture, decrease BUE pressure from AD, relax shoulders, and increase step length/stride/foot clearance. Pt verbalized and demonstrated w/fair return. Assisted pt back to room BTB. Left pt in comfort position, call light/phone within reach, bed alarmed, and all needs met. TONE Jacobo informed of pt's status. Will attempt stairs training in p.m session. A: Good tolerance to tx. Pt showed no signs of distress or SOB during or after tx. No c/o dizziness or nausea throughout tx. Bed mobility and gait distance improved compared to previous tx. P: Continue POC and progress as tolerated.
--- NOTE | 2018-03-10 11:37 | NUR ---
STELLA NOTES: PT WAS A TRANSFERRED FROM ICU TO MED/SURG ON 03-06. THIS PT IS WELL KNOWN TO THIS CM. PRIOR TO THE ADMISSION, PT WAS TRANSFERRED TO [facility]. HOWEVER, PT WENT AMA ON THE SAME DAY. PT REMAINS HOMELESS STATUS. SO FAR, PT IS ABLE TO AMBULATE 350FT WITH FWW. CM REFERRED THE PT TO [facility] [id number] DUE TO PT'S BEHAVIOR AND H/O AMA IN THE SNF ON THE SAME DAY TRANSFERRING TO SNF AND PT VANE PANDEY, HE WILL DISCUSS WITH THE PT FOR SHELTERS. WILL REMAIN AVAILABLE. JAMES FARIAS CM [id number] Addendum: 03/10/18 at 1142 by JAMES BONILLA CM Amended: Links added.
--- NOTE | 2018-03-10 11:53 | PN ---
Date/Time of Note Date/Time of Note DATE: 03/10/18 TIME: 11:52 Assessment/Plan VTE Prophylaxis Risk score (from Ns)>0 risk: 8 SCD applied (from Nsg): Yes Pharmacological prophylaxis: LMWH Lines/Catheters IV Catheter Type (from Nrsg): Mid Line Urinary Cath still in place: Yes Reason Cath still needed: skin wounds contaminated by urine Assessment/Plan Hospital Course Chronic back and neck pain status post cervical decompression and fusion on 01/11/2018, status post anterior lumbar interbody fusion on 01/19/2018 and the patient is scheduled to undergo posterior fixation and possible decompression. We will continue to follow him postoperatively. Subjective 24 Hr Interval Summary Free Text/Dictation Patient working hard with therapy Exam/Review of Systems Vital Signs Vitals Vital Signs Date Temp Pulse Resp B/P (MAP) Pulse Ox O2 O2 Flow FiO2 Time Delivery Rate 03/10/18 98.1 81 19 113/62 07:41 (79) 03/10/18 100 Room Air 01:47 Intake and Output 03/09/18 03/09/18 03/10/18 1515:00 23:00 07:00 IntakeIntake Total 400 ml 200 ml 540 ml OutputOutput Total 600 ml 400 ml 700 ml BalanceBalance -200 ml -200 ml -160 ml Exam Constitutional: well developed Head: normocephalic, atraumatic Neck: supple Respiratory: diminished breath sounds Cardiovascular: regular rate and rhythm Gastrointestinal: soft, non-tender Extremities: normal pulses Medications Medications Current Medications IV Flush (NS 3 ml) 3 ml PER PROTOCOL IV ; Start 02/28/18 at 20:30 Ondansetron HCl (Zofran Inj) 4 mg Q6H PRN IV NAUSEA AND/OR VOMITING; Start 02/28/18 at 20:30 Potassium Chloride/Sodium Chloride 1,000 ml @ 100 mls/hr Q10H IV Last administered on 03/07/18at 17:25; Admin Dose 100 MLS/HR; Start 03/04/18 at 20:00; Status Hold Nicotine (Nicoderm 21 Mg/ 24hr) 1 patch DAILY TRANSDERM Last administered on 03/10/18at 08:29; Admin Dose 1 PATCH; Start 03/04/18 at 22:00 Hydromorphone HCl (Dilaudid) 1 mg Q3H PRN IV SEVERE PAIN LEVEL 7-10 Last administered on 03/07/18at 23:58; Admin Dose 1 MG; Start 03/05/18 at 10:30 Methadone HCl (Methadone Liq (Ped)) 2 mg Q8 PO Last administered on 03/10/18at 06:37; Admin Dose 2 MG; Start 03/05/18 at 11:00 Famotidine (Pepcid) 20 mg Q12 PO Last administered on 03/10/18at 08:28; Admin Dose 20 MG; Start 03/05/18 at 21:00 Docusate Sodium (Colace) 100 mg BID PO Last administered on 03/10/18at 08:28; Admin Dose 100 MG; Start 03/05/18 at 14:30 Bisacodyl (Dulcolax) 10 mg DAILY PO Last administered on 03/10/18at 08:28; Admi n Dose 10 MG; Start 03/05/18 at 14:30 Acetaminophen/ Hydrocodone Bitart ([place] (5/325)) 2 tab Q4H PRN PO PAIN LEVEL 4-7 Last administered on 03/10/18at 02:36; Admin Dose 2 TAB; Start 03/08/18 at 02:30 THUAN LARSEN Mar 10, 2018 11:53
--- NOTE | 2018-03-10 15:15 | NUR ---
PT NOTE [facility] Patient: Jerad Bateman : 1955 Age/Sex: 62/M Unit#: [id number] Room/Bed: 424/A User: Ventura Lo PT Date: 03/10/18 15:16 Type: PT Technical Record Therapy day number 5 Subjective Current complaint of pain Pain Scale NUMERIC Pain Intensity 8 (0-10) Patient Stated Goal for Pain Relief 0 (0-10) Pain Level Comment back pain Supine to Sit Modified Independent Transfer Sit to Stand Ability Supervised Bed Mobility Sit to Supine Modified Independent Patient uses wheelchair Not Applicable Gait Training Start Time 14:50 Gait Assist Levels Supervised Assistive Devices Front Wheel Walker Ambulation Distance 200 feet Additional Gait Comments reciprocal, steady, stable, slow sg, forward flexed Gait Training End Time 15:15 Total Gait Training Treatment Time 25 min (8-127) Weight Bearing Assessment Label Bilat Lower Extremity Weight Bearing Status Full Weight Bearing Additional Stairs Assist Comments declined due to increased pain Static Sitting Balance Good Dynamic Sitting Balance Good Standing Static Balance Good Dynamic Standing Balance Fair plus Additional Balance Assessments Comments FWW Safety Judgement Fair Activity Tolerance Good Additional Equipment Present LSO Post Treatment Pain Intensity 8 0-10 Variance Documentation SEE BELOW Total Treament Time 25 min (8-127) Total Minutes 25 Total Units 2 PT Technical Record Comment PT NOTE S: Pt reported increased pain than compared to am O: TONE Jacobo cleared pt for session. Pt received in bed. Pt participated in interventions above. Pt returned to room and requested to use restroom. Pt left in restroom, instructed to call RN when finished. RN notified of pt's status. A: Pt limited this session due to increased back pain, only able to tolerate amb of 200', and declined attempting stairs. Gait with slow sg and reliance on UE. P: Continue c PT POC
[2018-03-10 15:42] VITALS: BP 121/62; PULSE 72; RESP 18
--- NOTE | 2018-03-10 18:11 | NUR ---
END OF SHIFT NOTE: Pt with continued pain, PO Norcos given x2. Pt worked with PT x2. Awaiting placement. VSS, call cummings within reach, hourly rounding maintained.
[2018-03-10 19:35] VITALS: BP 118/78; PULSE 71; RESP 20
[2018-03-11 02:10] VITALS: BP 114/75; PULSE 68; RESP 20
[2018-03-11] MEDS: HYDROCODONE/APAP (5/325) TAB PO PRN ×5 (04:32→20:54)
[2018-03-11] MEDS: METHADONE (1 MG/1 ML PO SYG) PO SCH ×3 (06:21→20:54)
[2018-03-11 07:30] VITALS: BP 119/72; PULSE 72; RESP 19
--- NOTE | 2018-03-11 07:41 | NUR ---
NRSG NOTE: PT IN BED, ASLEEP, EASILY AROUSED. AOX4. NO ACUTE DISTRESS NOTED. NO SOB. PAIN MGMT EFFECTIVE. CONTINUE DISCHARGE PLANNING TODAY
[2018-03-11] MEDS: DOCUSATE SODIUM 100 MG CAP PO SCH ×2 (08:51→20:53)
[2018-03-11] MEDS: BISACODYL (EC) 5 MG TAB PO SCH (08:51)
[2018-03-11] MEDS: FAMOTIDINE 20 MG TAB PO SCH ×2 (08:51→20:53)
[2018-03-11] MEDS: NICOTINE (21 MG/24 HR) PATCH TRANSDERM SCH (08:52)
--- NOTE | 2018-03-11 09:50 | NUR ---
PT NOTE [facility] Patient: Jerad Bateman : 1955 Age/Sex: 62/M Unit#: [id number] Room/Bed: 424/A User: Kiara Robert PTA Date: 03/11/18 09:26 Type: PT Technical Record Therapy day number 6 Subjective Current complaint of pain Pain Scale NUMERIC Pain Intensity 6 (0-10) Patient Stated Goal for Pain Relief 0 (0-10) Pain Level Comment pain in L/S with transfers; premedicated Supine to Sit Modified Independent Transfer Sit to Stand Ability Supervised Bed Mobility Sit to Supine Modified Independent Patient uses wheelchair Not Applicable Gait Training Start Time 09:26 Gait Assist Levels Supervised Assistive Devices Front Wheel Walker Ambulation Distance 600 feet Additional Gait Comments reciprocal gait, VCs on fwd gaze, improved pain with ambulation Gait Training End Time 09:50 Total Gait Training Treatment Time 24 min (8-127) Weight Bearing Assessment Label Bilat Lower Extremity Weight Bearing Status Full Weight Bearing Static Sitting Balance Good Dynamic Sitting Balance Good Standing Static Balance Good Dynamic Standing Balance Fair plus Additional Balance Assessments Comments with FWW Safety Judgement Good Activity Tolerance Good Additional Equipment Present LSO Post Treatment Pain Intensity 5 0-10 Variance Documentation see note Total Treament Time 24 min (8-127) Total Minutes 24 Total Units 2 PT Technical Record Comment PT NOTE S: Pt c/o pain with transfers. Agreed to skilled PT. Cleared and premedicated by TONE Reis. O: Received asleep in L sidelying, easily awakened. See tech record for assist levels. Log roll to EOB. Donned LSO with SBA. STS without AD. Gait training with FWW, reciprocal gait, upright posture but with downward gaze, VCs to encourage forward gaze, no LOB. Returned back to EOB. Doffed LSO mod I. Positioned in L sidelying, call light and all necessities within reach. Informed RN. A: Pt naomi tx well. Improved pain with continuous gait training. VCs to encourage forward gaze. P: Continue with POC.
--- NOTE | 2018-03-11 12:07 | PN ---
Date/Time of Note Date/Time of Note DATE: 03/11/18 TIME: 12:06 Assessment/Plan VTE Prophylaxis Risk score (from Ns)>0 risk: 9 SCD applied (from Nsg): Yes Pharmacological prophylaxis: LMWH Lines/Catheters IV Catheter Type (from Nrsg): Mid Line Urinary Cath still in place: Yes Reason Cath still needed: skin wounds contaminated by urine Assessment/Plan Hospital Course Chronic back and neck pain status post cervical decompression and fusion on 01/11/2018, status post anterior lumbar interbody fusion on 01/19/2018 and the patient is scheduled to undergo posterior fixation and possible decompression. We will continue to follow him postoperatively. Subjective 24 Hr Interval Summary Free Text/Dictation Patient doing well Exam/Review of Systems Vital Signs Vitals Vital Signs Date Temp Pulse Resp B/P (MAP) Pulse Ox O2 O2 Flow FiO2 Time Delivery Rate 03/11/18 98.2 72 19 119/72 96 07:30 (88) 03/10/18 Room Air 01:47 Intake and Output 03/10/18 03/10/18 03/11/18 1414:59 22:59 06:59 IntakeIntake Total 1220 ml OutputOutput Total 620 ml BalanceBalance 600 ml Exam Constitutional: well developed Head: normocephalic, atraumatic Neck: supple Respiratory: diminished breath sounds Cardiovascular: regular rate and rhythm Gastrointestinal: soft, non-tender Extremities: normal pulses Medications Medications Current Medications IV Flush (NS 3 ml) 3 ml PER PROTOCOL IV ; Start 02/28/18 at 20:30 Ondansetron HCl (Zofran Inj) 4 mg Q6H PRN IV NAUSEA AND/OR VOMITING; Start 02/28/18 at 20:30 Potassium Chloride/Sodium Chloride 1,000 ml @ 100 mls/hr Q10H IV Last administered on 03/07/18at 17:25; Admin Dose 100 MLS/HR; Start 03/04/18 at 20:00; Status Hold Nicotine (Nicoderm 21 Mg/ 24hr) 1 patch DAILY TRANSDERM Last administered on 03/11/18at 08:52; Admin Dose 1 PATCH; Start 03/04/18 at 22:00 Hydromorphone HCl (Dilaudid) 1 mg Q3H PRN IV SEVERE PAIN LEVEL 7-10 Last administered on 03/07/18at 23:58; Admin Dose 1 MG; Start 03/05/18 at 10:30 Methadone HCl (Methadone Liq (Ped)) 2 mg Q8 PO Last administered on 03/11/18 06:21; Admin Dose 2 MG; Start 03/05/18 at 11:00 Famotidine (Pepcid) 20 mg Q12 PO Last administered on 03/11/18 08:51; Admin Dose 20 MG; Start 03/05/18 at 21:00 Docusate Sodium (Colace) 100 mg BID PO Last administered on 03/11/18at 08:51; Admin Dose 100 MG; Start 03/05/18 at 14:30 Bisacodyl (Dulcolax) 10 mg DAILY PO Last administered on 03/11/18 08:51; Admin Dose 10 MG; Start 03/05/18 at 14:30 Acetaminophen/ Hydrocodone Bitart ([place] (5/325)) 2 tab Q4H PRN PO PAIN LEVEL 4-7 Last administered on 03/11/18 08:52; Admin Dose 2 TAB; Start 03/08/18 at 02:30 THUAN LARSEN Mar 11, 2018 12:07
--- NOTE | 2018-03-11 14:59 | NUR ---
CM NOTES: RECEIVED A CALL FROM NELI ISABEL [phone] AND SNF WILL NOT BE APPROVED. PT IS AMBULATING 600 FT. AGAIN, PT WENT AMA FROM LAST ADMISSION ON THE FIRST DAY OF SNF. PER BRADY QUINTEROS, PT SHOULD BE GOING TO [facility]. INFORMED MEENAR VANE TO FOLLOW UP. JAMES BONILLA LEAD CM [id number]
--- NOTE | 2018-03-11 15:00 | NUR ---
PT NOTE [facility] Patient: Jerad Bateman : 1955 Age/Sex: 62/M Unit#: [id number] Room/Bed: 424/A User: Kiara Robert PTA Date: 03/11/18 14:35 Type: PT Technical Record Therapy day number 6 Subjective Current complaint of pain Pain Scale NUMERIC Pain Intensity 5 (0-10) Patient Stated Goal for Pain Relief 0 (0-10) Pain Level Comment L/S; premedicated Supine to Sit Modified Independent Transfer Sit to Stand Ability Supervised Bed Mobility Sit to Supine Modified Independent Patient uses wheelchair Not Applicable Gait Training Start Time 14:35 Gait Assist Levels Supervised Assistive Devices Front Wheel Walker Ambulation Distance 500 feet Additional Gait Comments reciprocal gait, no LOB Gait Training End Time 15:00 Total Gait Training Treatment Time 25 min (8-127) Weight Bearing Assessment Label Bilat Lower Extremity Weight Bearing Status Full Weight Bearing Stair Climbing Ability Stand by Assist Number of Stairs 12 Stairs Additional Stairs Assist Comments 4x3 step to pattern, 2 HRs, no LOB Static Sitting Balance Good Dynamic Sitting Balance Good Standing Static Balance Good Dynamic Standing Balance Fair plus Additional Balance Assessments Comments with FWW Safety Judgement Good Activity Tolerance Good Additional Equipment Present LSO Post Treatment Pain Intensity 5 0-10 Variance Documentation see PT note Total Treament Time 25 min (8-127) Total Minutes 25 Total Units 2 PT Technical Record Comment PT NOTE S: "I feel better than this morning." Agreed to skilled PT. Cleared and premedicated by TONE Reis. O: Received awake in supine. See tech record for transfers. Noted slight twisting with transfer; pt education on proper sequencing and log roll tech; pt demo'd good understanding. Gait training with FWW, reciprocal gait. Stair training 4 steps x3 with 2 HRs and step to pattern, no LOB, sready. Returned back to EOB, doffed LSO mod I. Returned to supine, call light and all necessities within reach. A: Pt naomi tx well. Pain well managed; no complaints of increased pain. P: Continue with POC.
--- NOTE | 2018-03-11 16:22 | NUR ---
SS NOTE: PT TO BE D/C TO [facility] SW MET WITH PT AT BEDSIDE TO DISCUSS D/C TOMORROW. PER PERSONAL CAREGIVER RAGHAV NOTE, PT'S WORKER AT [facility] WILL NOT BE ABLE TO ASSIST PT BEFORE 03/18/17. SW DISCUSSED WITH PT D/C TO [facility]. PT IS AGREEABLE TO D/C TO [facility]. [facility] RESOURCES/INFORMATION/DIRECTIONS PROVIDED. PT SIGNED HOMELESS DISCHARGE CONSENT FORM AND COPY PACED IN CHART. PLAN IS FOR PT TO D/C TOMORROW MORNING TO [facility] [place] [facility]. PT TO BE PROVIDED TWO BUS TOKENS AT THAT TIME. TOKENS PLACED IN PT'S CHART. PT'S TONE SMITH UPDATED. SW REMAINS AVAILABLE FOR F/U NEEDED.
--- NOTE | 2018-03-11 16:32 | NUR ---
STELLA NOTES: S/W DR THUAN LARSEN AND PROVIDED HIM ALL UPDATE FOR DC TO [facility]. ISSUED FWW FROM [facility] AND DELIVERED TO THE BEDSIDE. PT AGREED WITH THE DC PLAN TO [facility]. PLEASE SEE BANK TELLER MACHINE MECHANIC'S NOTES REGARDING THE [facility]. PLAN: DC TO THE ABOVE [facility] AT 10:00 AM JAMES FARIAS CM [id number]
[2018-03-11 16:39] VITALS: BP 121/62; PULSE 62; RESP 18
[2018-03-11 17:30] VITALS: BP 115/55; PULSE 75; RESP 20
--- NOTE | 2018-03-11 18:38 | NUR ---
End of shift Summary: Pt is alert and orient. Very pleasant pt. Had ant and post L2-S2 fusion and decompression. incision covered with dermabond. Dry and intact. Pt has Tatoos. Vital signs stable. No iv site. On Remlap q prn every 4hr. Pt is voiding. Seen by physical therapist x 2. Ambulate with walker. Cleared for discharge and will dc in am going to [facility].Bus token was placed in the pt chart by the mental health social worker. Walker will be delivered to pt room per STELLA Espinal. Call light within reach. Pt was encouraged to call for assistance. And Pt verbalized understanding.
[2018-03-11 20:30] VITALS: BP 113/73; PULSE 77; RESP 18
[2018-03-12] MEDS: HYDROCODONE/APAP (5/325) TAB PO PRN ×2 (01:06→11:59)
[2018-03-12 02:40] VITALS: BP 118/66; PULSE 80; RESP 20
[2018-03-12] MEDS: METHADONE (1 MG/1 ML PO SYG) PO SCH ×2 (06:40→14:06)
--- NOTE | 2018-03-12 07:29 | NUR ---
End of Shift Summary: S/P L3-S1 Fusion and decompression on 03/04/[address] Hutchinson Patient denies chest pain, palpitations, shortness of breath, nausea, vomiting, headache, cough, or changes in bowel/bladder habits. Patient received methadone and norco for pain management with adequate pain relief noted. Patient tolerated regular diet. Encouraged incentive spirometer use Q1hr x10 while awake. Teaching provided and patient understands instructions. SCD's in place. Pt scratched incision and had scant bleeding. Tegaderm applied. Patient has no IV site. Last BM on 03/07. Colace given. Safety precautions maintained throughout the shift. Bed in lowest position and bed alarm activated. Call light within reach. Hourly rounding rendered. All needs met.
[2018-03-12 07:59] VITALS: BP 98/54; PULSE 72; RESP 18
[2018-03-12] MEDS: BISACODYL (EC) 5 MG TAB PO SCH (09:08)
[2018-03-12] MEDS: DOCUSATE SODIUM 100 MG CAP PO SCH (09:08)
[2018-03-12] MEDS: FAMOTIDINE 20 MG TAB PO SCH (09:08)
[2018-03-12] MEDS: NICOTINE (21 MG/24 HR) PATCH TRANSDERM SCH (09:09)
--- NOTE | 2018-03-12 09:55 | NUR ---
PATIENT COMFORTABLE IN THE AM. VITALS STABLE. SURGICAL SITE INTACT AND PATENT . NO BLEEDING OR DRAINAGE NOTED . NO PAIN COMPLAINED. WALKED IN THE BALLARD WAY AFTER BREAKFAST . OBSERVED THE AND ACCOMPANIED PATIENT WHILE WALKING. ALL SAFETY PRE CAUTIONS CONTINUED SUCH BED IN THE LOWEST POSITION, ALARMS ON, BRAKES ON, CALL LIGHT WITH IN REACH. ENCOURAGED THE PATIENT TO USE CALL LIGHT . WILL CONTINUE TO MONITOR.
--- NOTE | 2018-03-12 10:11 | NUR ---
PT NOTE , ATTEMPTED TO SEE THE PAINT FOR PT X3 , EACH TIME PATIENT STATED I AM TIRED I JUST WOKE UP COME BACK LATER , AT THE THIRD ATTEMPT PATIENT STATED I GO TO RESIDENTIAL TODAY AND I JUST WALK WITH NSG STAFF , REFUSAL RESPECTED , PLAN TO RETURN IN PM IF REMAINS IN HOSPITAL . RN NOTIFIED .
--- NOTE | 2018-03-12 10:30 | NUR ---
WHILE GIVING DISCHARGE INSTRUCTION PATIENT REQUESTED FOR PRESCRIPTION AND INFORMED HIM THAT NO PRESCRIPTION LEFT. CONTACTED DR. LARSEN FEW TIMES AND LEFT MESSAGE FOR CALL BACK. LUCY SANTIZO ALSO. AWAITING FOR RESPONSE.
--- NOTE | 2018-03-12 11:10 | NUR ---
JAMES UPHOLSTERER ASSEMBLY LINE INFORMED REGARDING THE PATIENT REQUEST FOR PRESCRIPTIONS . MAGEN LOCKHART GOT CONNECTED WITH DR. LARSEN AND HE INFORMED THAT WILL BE HERE IN THE NOON BY 1400 HRS AND WILL GIVE THE PRESCRIPTION,. PATIENT AND UPHOLSTERER ASSEMBLY LINE INFORMED. PATIENT SAID OK.
--- NOTE | 2018-03-12 13:54 | NUR ---
PT NOTE ., ATTEMPTED PT TREATMENT IN PM , PATIENT UNWILLING TO PARTICIPATE STATED ABLE TO WALK IND .W/FWW AND WILL [facility] THIS PM , RN NOTIFIED PLAN TO FOLLOW UP AGAIN IN REMAINS IN HOSPITAL .
--- NOTE | 2018-03-12 14:30 | NUR ---
PATIENT RECEIVED NARCOTIC PRESCRIPTION FROM DR. LARSEN . DISCHARGED SAFELY THIS TIME VIA TEACHING MUSIC LESSONS BY WHEELCHAIR . FAMILY ACCOMPANIED. NO IV TO BE REMOVED
--- NOTE | 2018-03-12 14:45 | DS ---
Date/Time of Note Date/Time of Note DATE: 03/12/18 TIME: 14:43 Discharge Summary Admission/Discharge Info Admit Date/Time Feb 28, 2018 at 19:04 Discharge Date/Time 03/12/18 Discharge Diagnosis Chronic back and neck pain status post cervical decompression and fusion on 01/11/2018, status post anterior lumbar interbody fusion on 01/19/2018 and the patient is scheduled to undergo posterior fixation and possible decompression. We will continue to follow him postoperatively. Patient Condition: Fair Consults neurosurgery Procedures back surgery Hx of Present Illness Patient comes in with back pain. Hospital Course Patient comes in with back pain. Patient underwent previous procedures and he underwent another posterior fixation. He tolerated the procedure and when felt to be stable per neurosurgery, patient was sent home. Chronic back and neck pain status post cervical decompression and fusion on 01/11/2018, status post anterior lumbar interbody fusion on 01/19/2018 and the patient is scheduled to undergo posterior fixation and possible decompression. We will continue to follow him postoperatively. Home Meds Reported Medications Metoprolol Tartrate* (Lopressor*) 50 Mg Tab, 50 MG PO BID, #60 TAB 03/07/18 Losartan Potassium* (Losartan Potassium*) 100 Mg Tablet, 100 MG PO DAILY, TAB 03/07/18 Amlodipine Besylate* (Norvasc*) 10 Mg Tablet, 10 MG PO DAILY, TAB 03/07/18 Primary Care Provider [facility] THUAN LARSEN Mar 12, 2018 14:44
== END 2018-03-12 14:30 | disposition home or self-care (01) | DRG 460 ==
LOC: FTE 15:10 → PP2 19:04 → ICU 03-04 15:45 → MS1 03-05 17:25
PROVIDERS: ADMIT Internal Medicine; ATTEND Internal Medicine
PROC: 0SB00ZZ Excision of Lumbar Vertebral Joint, Open Approach (ICD-10-PCS; 2018-03-04)
PROC: 0SG10K1 Fusion of 2 or more Lumbar Vertebral Joints with Nonautologous Tissue Substitute, Posterior Approach, Posterior Column, Open Approach (ICD-10-PCS; principal; 2018-03-04 14:00)
DX: M47.26 Other spondylosis with radiculopathy, lumbar region (principal); M71.38 Other bursal cyst, other site; D17.79 Benign lipomatous neoplasm of other sites; E88.2 Lipomatosis, not elsewhere classified; Z59.0 Homelessness; F17.200 Nicotine dependence, unspecified, uncomplicated
CPT/HCPCS: 36415; 72114; 72131; 80048; 80053; 83036; 85025; 85610; 85730; 86850; 86900; 86901; 86920; 88304; 88311; 93971; 97116; 97161; 97530; C1762; J0690; J1100; J1170; J1200; J1650; J2250; J2270; J2370; J2405; J2795; J3010; J3480

== ENCOUNTER 2018-09-04 17:32 | Inpatient (IN) | payer OTHER ==
[~2018-09-04] VITALS: Ht 177.8 cm; Wt 79.8 kg
[~2018-09-04 17:32] MED LIST changes: +AMLO-218 PO; -CLIN-73 PO; +LOSA100T15 PO; +METO-429 PO
[2018-09-04 21:17] VITALS: Ht 177.8 cm; Wt 79.8 kg
[2018-09-04] MEDS ORDERED: ONDANSETRON 4 MG INJ IV PRN (21:30)
[2018-09-04 22:00] VITALS: BP 117/69; PULSE 63; RESP 18
[2018-09-04] MEDS: DEXTROSE 5%-0.45% NACL 1,000 ML IV SCH (22:19)
[2018-09-05 02:34] VITALS: BP 105/66; PULSE 74; RESP 18
[2018-09-05 07:51] VITALS: BP 131/75; PULSE 67; RESP 18
[2018-09-05] MEDS: DEXTROSE 5%-0.45% NACL 1,000 ML IV SCH ×2 (08:53→17:29)
--- NOTE | 2018-09-05 08:59 | HP ---
Date/Time of Note Date/Time of Note DATE: 09/05/18 TIME: 08:57 Assessment/Plan VTE Prophylaxis Pharmacological prophylaxis: heparin Lines/Catheters IV Catheter Type (from Nrsg): Peripheral IV Assessment/Plan Assessment/Plan 1. Proximal and left colon diverticulitis -Keep n.p.o. with IV fluid -Treat with Flagyl and Cipro -C. difficile and stool studies 2. Hypertension: BP is in acceptable range HPI/ROS Admit Date/Time Admit Date/Time Sep 04, 2018 at 21:00 Hx of Present Illness This is a 61-year-old male with a history of hypertension, depression/anxiety, spinal, abdominal and shoulder surgery. Patient initially presented on outside hospital complaining of abdominal pain and diarrhea. Symptoms been going on for the past 2 weeks. He was treated with Cipro but symptoms persisted. CT abdomen pelvis at the outside facility shows left colon and proximal sigmoid diverticulitis without perforation. Patient was transferred to [facility] for insurance reason. PMH/Family/Social Past Medical History Medical History: other (See HPI) Medications Current Medications Dextrose/Sodium Chloride 1,000 ml @ 100 mls/hr Q10H IV Last administered on 09/04/18at 22:19; Admin Dose 100 MLS/HR; Start 09/04/18 at 21:30 Morphine Sulfate (morphine) 2 mg Q4H PRN IV SEVERE PAIN LEVEL 7-10; Start 09/04/18 at 21:30 Ondansetron HCl (Zofran Inj) 4 mg Q6H PRN IV NAUSEA AND/OR VOMITING; Start 09/04/18 at 21:30 Coded Allergies: levofloxacin (Verified Allergy, Mild, Rash, 02/28/18) penicillin G (Verified Allergy, Unknown, 02/28/18) rash codeine (Verified Adverse Reaction, Mild, GI UPSET, 02/28/18) nausea Past Surgical History Past Surgical Hx: other (Abdominal, shoulder and spinal surgery) Family History Significant Family History: no pertinent family hx Social History Alcohol Use: none Smoking Status: Heavy tobacco smoker Drug Use: none Exam/Review of Systems Vital Signs Vitals Vital Signs Date Temp Pulse Resp B/P (MAP) Pulse Ox O2 O2 Flow FiO2 Time Delivery Rate 09/05/18 98.4 67 18 131/75 97 Room Air 07:51 (93) Intake and Output 609/04/18 09/05/18 1515:00 23:00 07:00 IntakeIntake Total 400 ml BalanceBalance 400 ml Exam Constitutional: other (No acute distress) Head: normocephalic, atraumatic Eyes: EOMI, PERRL Respiratory: clear to auscultation, normal air movement Cardiovascular: regular rate and rhythm, nl pulses Gastrointestinal: soft, non-tender Extremities: normal pulses VANE ODOM MD Sep 05, 2018 08:59
[2018-09-05] MEDS ORDERED: ALBUTEROL/IPRATROPIUM (NEB) 3 ML AMP HHN PRN (09:00)
[2018-09-05] MEDS ORDERED: ONDANSETRON 4 MG INJ IV PRN (09:00)
[2018-09-05] MEDS ORDERED: NACL 0.9% 3 ML SYG IV SCH (09:00)
[2018-09-05] MEDS ORDERED: CIPROFLOXACIN 400MG/D5W 200 ML IVPB SCH (09:00)
[2018-09-05] MEDS: metroNIDAZOLE 500 MG/NS (PMX) 100 ML IVPB SCH ×2 (10:27→13:02)
[2018-09-05] MEDS: morphine 2 MG INJ IV PRN ×2 (12:03→16:09)
--- NOTE | 2018-09-05 13:19 | PN ---
Date/Time of Note Date/Time of Note DATE: 09/05/18 TIME: 13:19 Assessment/Plan VTE Prophylaxis Risk score (from Ns)>0 risk: 2 SCD applied (from Nsg): Yes Pharmacological prophylaxis: other Lines/Catheters IV Catheter Type (from Nrs): Peripheral IV Assessment/Plan Hospital Course Patient seen and examined, on because of his antibiotic allergies will switch to ertapenem IV. Continue n.p.o. Patient care will be resumed under different provider based on the insurance now. Result Diagram: 09/05/18 1011 09/05/18 1011 Results 24hrs Laboratory Tests Test 09/05/18 10:11 White Blood Count 6.4 # Red Blood Count 5.21 Hemoglobin 15.6 Hematocrit 47.5 Mean Corpuscular Volume 91.2 Mean Corpuscular Hemoglobin 29.9 Mean Corpuscular Hemoglobin Concent 32.8 Red Cell Distribution Width 13.0 Platelet Count 338 Mean Platelet Volume 9.4 Immature Granulocytes % 0.300 Neutrophils % 60.5 Lymphocytes % 24.6 Monocytes % 8.9 Eosinophils % 4.9 Basophils % 0.8 Nucleated Red Blood Cells % 0.0 Immature Granulocytes # 0.020 Neutrophils # 3.9 Lymphocytes # 1.6 Monocytes # 0.6 Eosinophils # 0.3 Basophils # 0.1 Nucleated Red Blood Cells # 0.0 Sodium Level 142 Potassium Level 4.2 Chloride Level 107 Carbon Dioxide Level 27 Anion Gap 8 Blood Urea Nitrogen 9 Creatinine 0.68 Est Glomerular Filtrat Rate mL/min > 60 Glucose Level 95 Calcium Level 8.6 Phosphorus Level 3.3 Magnesium Level 2.0 Total Bilirubin 0.5 Direct Bilirubin 0.00 Indirect Bilirubin 0.5 Aspartate Amino Transf (AST/SGOT) 63 H Alanine Aminotransferase (ALT/SGPT) 74 H Alkaline Phosphatase 66 Total Protein 7.3 Albumin 3.9 Globulin 3.40 H Albumin/Globulin Ratio 1.14 Exam/Review of Systems Exam Vitals Vital Signs Date Temp Pulse Resp B/P (MAP) Pulse Ox O2 O2 Flow FiO2 Time Delivery Rate 09/05/18 98.4 67 18 131/75 97 Room Air 07:51 (93) Intake and Output 09/04/18 09/04/18 09/05/18 1515:00 23:00 07:00 IntakeIntake Total 400 ml BalanceBalance 400 ml Results Results 24hrs Laboratory Tests Test 09/05/18 10:11 White Blood Count 6.4 # Red Blood Count 5.21 Hemoglobin 15.6 Hematocrit 47.5 Mean Corpuscular Volume 91.2 Mean Corpuscular Hemoglobin 29.9 Mean Corpuscular Hemoglobin Concent 32.8 Red Cell Distribution Width 13.0 Platelet Count 338 Mean Platelet Volume 9.4 Immature Granulocytes % 0.300 Neutrophils % 60.5 Lymphocytes % 24.6 Monocytes % 8.9 Eosinophils % 4.9 Basophils % 0.8 Nucleated Red Blood Cells % 0.0 Immature Granulocytes # 0.020 Neutrophils # 3.9 Lymphocytes # 1.6 Monocytes # 0.6 Eosinophils # 0.3 Basophils # 0.1 Nucleated Red Blood Cells # 0.0 Sodium Level 142 Potassium Level 4.2 Chloride Level 107 Carbon Dioxide Level 27 Anion Gap 8 Blood Urea Nitrogen 9 Creatinine 0.68 Est Glomerular Filtrat Rate mL/min > 60 Glucose Level 95 Calcium Level 8.6 Phosphorus Level 3.3 Magnesium Level 2.0 Total Bilirubin 0.5 Direct Bilirubin 0.00 Indirect Bilirubin 0.5 Aspartate Amino Transf (AST/SGOT) 63 H Alanine Aminotransferase (ALT/SGPT) 74 H Alkaline Phosphatase 66 Total Protein 7.3 Albumin 3.9 Globulin 3.40 H Albumin/Globulin Ratio 1.14 Medications Medication Current Medications Dextrose/Sodium Chloride 1,000 ml @ 100 mls/hr Q10H IV Last administered on 09/04/18at 22:19; Admin Dose 100 MLS/HR; Start 09/04/18 at 21:30 Morphine Sulfate (morphine) 2 mg Q4H PRN IV SEVERE PAIN LEVEL 7-10 Last administered on 09/05/18at 12:03; Admin Dose 2 MG; Start 09/04/18 at 21:30 Ondansetron HCl (Zofran Inj) 4 mg Q6H PRN IV NAUSEA AND/OR VOMITING; Start 09/04/18 at 21:30 IV Flush (NS 3 ml) 3 ml PER PROTOCOL IV ; Start 09/05/18 at 09:00 Ondansetron HCl (Zofran Inj) 4 mg Q6H PRN IV NAUSEA/VOMITING; Start 09/05/18 at 09:00 Pantoprazole (Protonix Iv) 40 mg DAILY@06 IV ; Start 09/06/18 at 06:00 Albuterol/ Ipratropium (Duoneb) 3 ml Q2H RESP THERAPY PRN HHN SHORTNESS OF BREATH; Start 09/05/18 at 09:00 Metronidazole 100 ml @ 100 mls/hr Q6 IVPB Last administered on 09/05/18at 13:02; Admin Dose 100 MLS/HR; Start 09/05/18 at 09:00 DACIA CARL Sep 05, 2018 13:19
[2018-09-05] MEDS: ERTAPENEM SODIUM 1 GM in SOD CHLORIDE 0.9% 100 ML IVPB SCH (14:41)
[2018-09-05 14:58] VITALS: BP 109/63; PULSE 55; RESP 18
[2018-09-05 19:33] VITALS: BP 117/76; PULSE 60; RESP 18
[2018-09-06] MEDS: morphine 2 MG INJ IV PRN ×5 (01:12→21:22)
[2018-09-06 02:30] VITALS: BP 125/79; PULSE 68; RESP 18
[2018-09-06] MEDS: DEXTROSE 5%-0.45% NACL 1,000 ML IV SCH ×5 (03:30→23:50)
[2018-09-06] MEDS ORDERED: PANTOPRAZOLE 40 MG INJ IV SCH (06:00)
[2018-09-06 07:49] VITALS: BP 123/68; PULSE 61; RESP 20
[2018-09-06] MEDS: ERTAPENEM SODIUM 1 GM in SOD CHLORIDE 0.9% 100 ML IVPB SCH (14:10)
[2018-09-06 14:48] VITALS: BP 99/63; PULSE 59; RESP 20
--- NOTE | 2018-09-06 18:07 | PN ---
Date/Time of Note Date/Time of Note DATE: 09/06/18 TIME: 17:59 Assessment/Plan VTE Prophylaxis Risk score (from Ns)>0 risk: 2 SCD applied (from Ns): Yes Pharmacological prophylaxis: NA/contraindicated Pharm contraindication: surgical contra Lines/Catheters IV [facility] Peripheral IV Assessment/Plan Hospital Course Patient's complaint of generalized lower abdominal pain, complains of being hungry started on full liquid diet denies any nausea and vomiting. Assessment/Plan -Proximal and left colon diverticulitis, continue n.p.o., continue IV fluids continue ertapenem. -Hypertension, pressure is within normal limits. -History of multiple surgeries on cervical and lumbar spine -Tobacco dependence, cessation strongly advised, continue nicotine patch -History of IV drug use Further recommendations based on clinical course. Plan of care discussed with Dr. Wheatley. Result Diagram: 09/06/18 0536 09/06/18 0536 Results 24hrs Laboratory Tests Test 09/06/18 05:36 White Blood Count 5.6 Red Blood Count 4.94 Hemoglobin 14.8 Hematocrit 44.0 Mean Corpuscular Volume 89.1 Mean Corpuscular Hemoglobin 30.0 Mean Corpuscular Hemoglobin Concent 33.6 Red Cell Distribution Width 12.9 Platelet Count 312 Mean Platelet Volume 9.6 Immature Granulocytes % 0.400 Neutrophils % 50.2 Lymphocytes % 30.6 Monocytes % 11.7 H Eosinophils % 6.6 Basophils % 0.5 Nucleated Red Blood Cells % 0.0 Immature Granulocytes # 0.020 Neutrophils # 2.8 Lymphocytes # 1.7 Monocytes # 0.7 Eosinophils # 0.4 Basophils # 0.0 Nucleated Red Blood Cells # 0.0 Sodium Level 143 Potassium Level 3.9 Chloride Level 106 Carbon Dioxide Level 27 Anion Gap 10 Blood Urea Nitrogen 9 Creatinine 0.70 Est Glomerular Filtrat Rate mL/min > 60 Glucose Level 95 Calcium Level 8.7 Phosphorus Level 3.0 Magnesium Level 1.9 Exam/Review of Systems Exam Vitals Vital Signs Date Temp Pulse Resp B/P (MAP) Pulse Ox O2 O2 Flow FiO2 Time Delivery Rate 09/06/18 97.5 59 20 99/63 (75) 96 14:48 09/05/18 Room Air 07:51 Intake and Output 09/05/18 09/05/18 09/06/18 1515:00 23:00 07:00 IntakeIntake Total 1470 ml 1100 ml OutputOutput Total 800 ml BalanceBalance 1470 ml 1100 ml -800 ml Constitutional: alert, oriented Head: normocephalic Respiratory: clear to auscultation Cardiovascular: nl pulses Gastrointestinal: soft, tender Extremities: normal pulses Neurological: nl mental status Skin: nl turgor Results Results 24hrs Laboratory Tests Test 09/06/18 05:36 White Blood Count 5.6 Red Blood Count 4.94 Hemoglobin 14.8 Hematocrit 44.0 Mean Corpuscular Volume 89.1 Mean Corpuscular Hemoglobin 30.0 Mean Corpuscular Hemoglobin Concent 33.6 Red Cell Distribution Width 12.9 Platelet Count 312 Mean Platelet Volume 9.6 Immature Granulocytes % 0.400 Neutrophils % 50.2 Lymphocytes % 30.6 Monocytes % 11.7 H Eosinophils % 6.6 Basophils % 0.5 Nucleated Red Blood Cells % 0.0 Immature Granulocytes # 0.020 Neutrophils # 2.8 Lymphocytes # 1.7 Monocytes # 0.7 Eosinophils # 0.4 Basophils # 0.0 Nucleated Red Blood Cells # 0.0 Sodium Level 143 Potassium Level 3.9 Chloride Level 106 Carbon Dioxide Level 27 Anion Gap 10 Blood Urea Nitrogen 9 Creatinine 0.70 Est Glomerular Filtrat Rate mL/min > 60 Glucose Level 95 Calcium Level 8.7 Phosphorus Level 3.0 Magnesium Level 1.9 Medications Medication Current Medications Dextrose/Sodium Chloride 1,000 ml @ 75 mls/hr [id number] IV Last administered on 09/06/18at 09:58; Admin Dose 100 MLS/HR; Start 09/04/18 at 21:30 Morphine Sulfate (morphine) 2 mg Q4H PRN IV SEVERE PAIN LEVEL 7-10 Last administered on 09/06/18at 16:52; Admin Dose 2 MG; Start 09/04/18 at 21:30 IV Flush (NS 3 ml) 3 ml PER PROTOCOL IV ; Start 09/05/18 at 09:00 Ondansetron HCl (Zofran Inj) 4 mg Q6H PRN IV NAUSEA/VOMITING; Start 09/05/18 at 09:00 Albuterol/ Ipratropium (Duoneb) 3 ml Q2H RESP THERAPY PRN HHN SHORTNESS OF BREATH; Start 09/05/18 at 09:00 Ertapenem 1 gm/ Sodium Chloride 100 ml @ 200 mls/hr Q24H IVPB Last administered on 09/06/18at 14:10; Admin Dose 200 MLS/HR; Start 09/05/18 at 14:30 Famotidine (Pepcid Iv) 20 mg BID IV ; Start 09/07/18 at 09:00 AYESHA HAWKINS Sep 06, 2018 18:07
[2018-09-06 19:45] VITALS: BP 130/67; PULSE 68; RESP 19
[2018-09-07 02:00] VITALS: BP 111/63; PULSE 60; RESP 18
[2018-09-07] MEDS: DEXTROSE 5%-0.45% NACL 1,000 ML IV SCH ×2 (02:53→14:24)
[2018-09-07] MEDS: morphine 2 MG INJ IV PRN ×4 (04:06→20:13)
[2018-09-07 07:40] VITALS: BP 141/64; PULSE 60; RESP 20
[2018-09-07] MEDS: FAMOTIDINE 20 MG INJ IV SCH ×2 (08:34→20:13)
[2018-09-07] MEDS ORDERED: FAMOTIDINE 20 MG INJ IV SCH (09:00)
[2018-09-07 14:17] VITALS: BP 124/71; PULSE 61; RESP 20
[2018-09-07] MEDS: MEROPENEM 1 GM/50ML(PMX) 50 ML IVPB SCH ×2 (14:24→21:39)
--- NOTE | 2018-09-07 16:54 | PN ---
Date/Time of Note Date/Time of Note DATE: 09/07/18 TIME: 16:53 Assessment/Plan VTE Prophylaxis Risk score (from Ns)>0 risk: 2 SCD applied (from Ns): Yes Pharmacological prophylaxis: NA/contraindicated Pharm contraindication: other Lines/Catheters IV C[facility]ter Type (from [facility]): Peripheral IV Assessment/Plan Hospital Course Patient complains of being hungry, will progress diet as patient tolerates continue antibiotics, patient denies any nausea and vomiting. Assessment/Plan -Proximal and left colon diverticulitis, continue meropenem. -Hypertension, pressure is within normal limits. -History of multiple surgeries on cervical and lumbar spine -Tobacco dependence, cessation strongly advised, continue nicotine patch -History of IV drug use Further recommendations based on clinical course. Plan of care discussed with Dr. Wheatley. Result Diagram: 09/07/18 0453 09/07/18 0453 Results 24hrs Laboratory Tests Test 09/07/18 04:53 White Blood Count 5.6 Red Blood Count 4.64 L Hemoglobin 13.9 L Hematocrit 41.1 L Mean Corpuscular Volume 88.6 Mean Corpuscular Hemoglobin 30.0 Mean Corpuscular Hemoglobin Concent 33.8 Red Cell Distribution Width 13.0 Platelet Count 306 Mean Platelet Volume 9.7 Immature Granulocytes % 0.200 Neutrophils % 47.3 Lymphocytes % 33.6 Monocytes % 11.5 H Eosinophils % 6.7 Basophils % 0.7 Nucleated Red Blood Cells % 0.0 Immature Granulocytes # 0.010 Neutrophils # 2.7 Lymphocytes # 1.9 Monocytes # 0.7 Eosinophils # 0.4 Basophils # 0.0 Nucleated Red Blood Cells # 0.0 Sodium Level 141 Potassium Level 4.0 Chloride Level 107 Carbon Dioxide Level 28 Anion Gap 6 Blood Urea Nitrogen 8 Creatinine 0.68 Est Glomerular Filtrat Rate mL/min > 60 Glucose Level 103 Calcium Level 8.2 L Exam/Review of Systems Exam Vitals Vital Signs Date Temp Pulse Resp B/P (MAP) Pulse Ox O2 O2 Flow FiO2 Time Delivery Rate 09/07/18 98.1 61 20 124/71 98 14:17 (88) 09/05/18 Room Air 07:51 Intake and Output 09/06/18 09/06/18 09/07/18 1515:00 23:00 07:00 IntakeIntake Total 1420 ml 1555 ml 565 ml BalanceBalance 1420 ml 1555 ml 565 ml Exam Constitutional: alert, oriented Head: normocephalic Respiratory: clear to auscultation Cardiovascular: nl pulses Gastrointestinal: soft, tender Extremities: normal pulses Neurological: nl mental status Skin: nl turgor Results Results 24hrs Laboratory Tests Test 09/07/18 04:53 White Blood Count 5.6 Red Blood Count 4.64 L Hemoglobin 13.9 L Hematocrit 41.1 L Mean Corpuscular Volume 88.6 Mean Corpuscular Hemoglobin 30.0 Mean Corpuscular Hemoglobin Concent 33.8 Red Cell Distribution Width 13.0 Platelet Count 306 Mean Platelet Volume 9.7 Immature Granulocytes % 0.200 Neutrophils % 47.3 Lymphocytes % 33.6 Monocytes % 11.5 H Eosinophils % 6.7 Basophils % 0.7 Nucleated Red Blood Cells % 0.0 Immature Granulocytes # 0.010 Neutrophils # 2.7 Lymphocytes # 1.9 Monocytes # 0.7 Eosinophils # 0.4 Basophils # 0.0 Nucleated Red Blood Cells # 0.0 Sodium Level 141 Potassium Level 4.0 Chloride Level 107 Carbon Dioxide Level 28 Anion Gap 6 Blood Urea Nitrogen 8 Creatinine 0.68 Est Glomerular Filtrat Rate mL/min > 60 Glucose Level 103 Calcium Level 8.2 L Medications Medication Current Medications Dextrose/Sodium Chloride 1,000 ml @ 75 mls/hr [id number] IV Last administered on 09/07/18at 14:24; Admin Dose 75 MLS/HR; Start 09/04/18 at 21:30 Morphine Sulfate (morphine) 2 mg Q4H PRN IV SEVERE PAIN LEVEL 7-10 Last a dministered on 09/07/18at 14:39; Admin Dose 2 MG; Start 09/04/18 at 21:30 IV Flush (NS 3 ml) 3 ml PER PROTOCOL IV ; Start 09/05/18 at 09:00 Ondansetron HCl (Zofran Inj) 4 mg Q6H PRN IV NAUSEA/VOMITING; Start 09/05/18 at 09:00 Albuterol/ Ipratropium (Duoneb) 3 ml Q2H RESP THERAPY PRN HHN SHORTNESS OF BREATH; Start 09/05/18 at 09:00 Famotidine (Pepcid Iv) 20 mg BID IV Last administered on 09/07/18at 08:34; Admin Dose 20 MG; Start 09/07/18 at 09:00 Meropenem/Sodium Chloride 50 ml @ 100 mls/hr Q8 IVPB Last administered on 09/07/18at 14:24; Admin Dose 100 MLS/HR; Start 09/07/18 at 14:30 AYESHA HAWKINS Sep 07, 2018 16:54
[2018-09-07 20:00] VITALS: BP 129/81; PULSE 66; RESP 18
[2018-09-08 02:00] VITALS: BP 116/64; PULSE 60; RESP 18
[2018-09-08] MEDS: DEXTROSE 5%-0.45% NACL 1,000 ML IV SCH ×3 (05:50→21:05)
[2018-09-08] MEDS: MEROPENEM 1 GM/50ML(PMX) 50 ML IVPB SCH ×3 (05:50→22:20)
[2018-09-08 08:21] VITALS: BP 176/96; PULSE 68; RESP 19
[2018-09-08] MEDS: morphine 2 MG INJ IV PRN ×4 (08:46→21:04)
[2018-09-08] MEDS: FAMOTIDINE 20 MG INJ IV SCH ×2 (08:46→21:03)
[2018-09-08 14:39] VITALS: BP 131/74; PULSE 61; RESP 19
--- NOTE | 2018-09-08 17:31 | CONS ---
DATE OF ADMISSION: 09/06/2018 DATE OF CONSULTATION: 09/08/2018 TYPE OF CONSULTATION: Infectious disease. REASON FOR CONSULTATION: Antibiotic management. HISTORY OF PRESENT ILLNESS: Jerad Bateman is a 63-year-old male with a number of problems including hy pertension, who comes in with what appears to be a perforated diverticulitis. His past problems incl ude: 1. Hypertension. 2. Depression and anxiety. 3. Spinal, abdominal and shoulder surgery. The patient presented to an outside hospital complaining of abdominal pain and diarrhea, which has be en going on for the last 2 weeks. He was treated with Cipro, but the symptoms persisted. CT of the abdomen and pelvis at the outside hospital showed left colon and proximal sigmoid diverticulitis with out perforation. He was transferred to [facility]. PAST MEDICAL HISTORY: Operations as outlined on abdomen, shoulder and spine. FAMILY HISTORY: Noncontributory. SOCIAL HISTORY: He is a heavy tobacco smoker, does not drink or abuse drugs. ALLERGIES: 1. LEVAQUIN. 2. PENICILLIN. 3. CODEINE. MEDICATIONS: Per chart. REVIEW OF SYSTEMS: As per HPI. PHYSICAL EXAMINATION: GENERAL: The patient is a well-developed, well-nourished male in no acute distress. VITAL SIGNS: Stable. He is afebrile. SKIN: Without generalized rash. HEENT: Within normal limits. NECK: Supple. LYMPH NODES: None palpable. CHEST: Decreased breath sounds at the bases. HEART: Without murmur or gallop. ABDOMEN: Soft, somewhat tender without organosplenomegaly or masses. EXTREMITIES: Without cyanosis, clubbing, or edema. RECTAL AND GENITAL: Deferred. NEUROLOGIC: No focal neurological abnormality. ANCILLARY LABORATORY DATA: On the , his white count was 6.4, H and H of 15.6 and 47.5, platelet count 338,000. BUN and creatinine 9/0.68. Glucose of 95. IMPRESSION AND PLAN: The patient was placed on ertapenem and remains n.p.o.. He was seen by nurse Masha dixon. He is on his antibiotics. Proximal left colon diverticulitis. Continue wit h meropenem. Hypertension, multiple surgeries, tobacco dependency and history of IV drug abuse in past. The patient's white count on the was 5.6. We will continue him on current therapy. I will dictate my findings to Dr. Wheatley and nurse practitioner, Masha. Dictated By: ALCIDES ELISE MD, JD/TORIBIO Conf#: [id number] DID#: [id number]
--- NOTE | 2018-09-08 18:30 | PN ---
Date/Time of Note Date/Time of Note DATE: 09/08/18 TIME: 18:30 Assessment/Plan VTE Prophylaxis Risk score (from Ns)>0 risk: 2 SCD applied (from Ns): No SCD contraindicated: patient refusal Pharmacological prophylaxis: NA/contraindicated Pharm contraindication: surgical contra Lines/Catheters IV Catheter Type (from Nrs): Peripheral IV Assessment/Plan Hospital Course Pt tolerates diet, denies N/V,complains of abdominal pain. Assessment/Plan -Proximal and left colon diverticulitis, continue meropenem. Dr Geller is following in ID consultation. Dr Simon is asked to see pt in GI consultation. Dr Louise is asked to see pt in general surgery consultation. -Hypertension, pressure is within normal limits. -History of multiple surgeries on cervical and lumbar spine -Tobacco dependence, cessation strongly advised, continue nicotine patch -History of IV drug use Further recommendations based on clinical course. Plan of care discussed with Dr. Wheatley. Result Diagram: 09/07/18 0453 09/07/18 0453 Exam/Review of Systems Exam Vitals Vital Signs Date Temp Pulse Resp B/P (MAP) Pulse Ox O2 O2 Flow FiO2 Time Delivery Rate 09/08/18 97.6 61 19 131/74 95 14:39 (93) 09/05/18 Room Air 07:51 Intake and Output 09/07/18 09/07/18 09/08/18 1515:00 23:00 07:00 IntakeIntake Total 1195 ml 1280 ml 955 ml BalanceBalance 1195 ml 1280 ml 955 ml Exam Constitutional: alert, oriented Head: normocephalic Respiratory: clear to auscultation Cardiovascular: nl pulses Gastrointestinal: soft, tender Extremities: normal pulses Neurological: nl mental status Skin: nl turgor Medications Medication Current Medications Dextrose/Sodium Chloride 1,000 ml @ 75 mls/hr [id number] IV Last administered on 09/08/18at 05:50; Admin Dose 75 MLS/HR; Start 09/04/18 at 21:30 Morphine Sulfate (morphine) 2 mg Q4H PRN IV SEVERE PAIN LEVEL 7-10 Last administered on 09/08/18at 17:09; Admin Dose 2 MG; Start 09/04/18 at 21:30 IV Flush (NS 3 ml) 3 ml PER PROTOCOL IV ; Start 09/05/18 at 09:00 Ondansetron HCl (Zofran Inj) 4 mg Q6H PRN IV NAUSEA/VOMITING Last administered on 09/08/18at 12:51; Admin Dose 4 MG; Start 09/05/18 at 09:00 Albuterol/ Ipratropium (Duoneb) 3 ml Q2H RESP THERAPY PRN HHN SHORTNESS OF BREATH; Start 09/05/18 at 09:00 Famotidine (Pepcid Iv) 20 mg BID IV Last administered on 09/08/18at 08:46; Admin Dose 20 MG; Start 09/07/18 at 09:00 Meropenem/Sodium Chloride 50 ml @ 100 mls/hr Q8 IVPB Last administered on 09/08/18at 13:02; Admin Dose 100 MLS/HR; Start 09/07/18 at 14:30 AYESHA HAWKINS Sep 08, 2018 18:30
[2018-09-08 19:57] VITALS: BP 133/86; PULSE 60; RESP 18
--- NOTE | 2018-09-09 00:46 | CONS ---
DATE OF ADMISSION: 09/06/2018 DATE OF CONSULTATION: HISTORY OF PRESENT ILLNESS: The patient is a 63-year-old male with a history of hypertension, nicoti ne use. He went to the ER at different facility. The patient was found to have a diverticulitis so was transferred to this facility for insurance purpose for further management. The patient never had a colonoscopy. No GI bleeding. No chest pain. No shortness of breath. Abdominal pain is better. No nausea. No vomiting. PAST MEDICAL HISTORY: Hypertension, depression, spinal surgery through the abdominal approach, and a lso shoulder surgery. FAMILY HISTORY: Nothing contributory. SOCIAL HISTORY: Heavy smoker, has been smoking for the last 50 years. ALLERGIES: ALLERGIC TO: 1. LEVAQUIN. 2. PENICILLIN. 3. CODEINE. MEDICATIONS: Per chart. REVIEW OF SYSTEMS: Nothing additional than what has been described in the History of Present Illness . PHYSICAL EXAMINATION: GENERAL: Well built, nourished, not in distress. VITAL SIGNS: Stable. HEENT: Unremarkable. NECK: Supple. No thyromegaly. No lymphadenopathy. CARDIOVASCULAR SYSTEM: No murmur, gallop or click. LUNGS: Clear. ABDOMEN: Soft. Tenderness in the left lower quadrant. Bowel sounds good. No mass felt per abdomen . EXTREMITIES: No edema. CENTRAL NERVOUS SYSTEM: Grossly within normal limit. LABORATORY DATA: WBC is 5.6, hematocrit is excellent -- 41. CMP is grossly within normal limit exce pt for a mild transaminitis. IMPRESSION: 1. Abdominal pain secondary to diverticulitis. 2. Depression and anxiety. 3. Status post back surgery. 4. Nicotine abuse. 5. Mild transaminitis most probably related to alcoholic liver disease. 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 PLAN: Plan at this point is to continue antibiotic, liquid diet and will advance it slowly. The pat ient definitely needs colonoscopy after 6 weeks. Dictated By: OSCAR SNOW/NTS Conf#: [id number] DID#: [id number] CC: ALL MARCUS MD; DACIA CARL;*EndCC*
[2018-09-09] MEDS: morphine 2 MG INJ IV PRN ×5 (01:08→21:52)
[2018-09-09 02:31] VITALS: BP 118/65; PULSE 61; RESP 18
[2018-09-09] MEDS: MEROPENEM 1 GM/50ML(PMX) 50 ML IVPB SCH ×3 (05:18→21:50)
--- NOTE | 2018-09-09 07:42 | CONS ---
DATE OF ADMISSION: 09/06/2018 DATE OF CONSULTATION: 09/08/2018 TYPE OF CONSULTATION: Surgical. REQUESTING PHYSICIAN: Dr. Wheatley's service. REASON FOR CONSULTATION: The patient has been transferred from [facility] with the diagnosis of diverticulitis of the sigmoid colon, and this was done because of insurance reasons, and the patient has been admitted to the medical service since 10/04/2018 and has been started on antibiotic and today a surgical consultation was requested. Thank you, Dr. Louise for the consultation. I am covering Dr. Louise for this consultation. CHIEF COMPLAINT AND HISTORY OF PRESENT ILLNESS: This is a 64-year-old gentleman who apparently has been suffering from severe diarrhea, watery in nature since about 19 days ago associated with some kind of crampy abdominal pain. No vomiting, occasional nausea, no chills, no fever. Her appetite has been good. The patient has been seen in the [facility] twice, one was about 10 days ago. They gave the patient antibiotic Cipro or oral levofloxacin. The patient was discharged. The patient took for 1 week, no effect, came back, this time they did further workup and apparently the WBC in [facility] on admission to the emergency room was normal with normal differential. OBJECTIVE: VITAL SIGNS: Stable, no fever. IMAGING: Chest x-ray was nonspecific. A CT scan of the abdomen and pelvis with IV contrast was obtained which the report is here in the computer and they reported that the presence of diverticulosis or along the splenic flexure and left colon, sigmoid colon, but there is mild diverticulitis of the proximal sigmoid colon and distal descending colon with some mild fat stranding and thickening of the wall and as was mentioned because of the insurance reasons the patient was transferred here to [facility]. PAST MEDICAL HISTORY: No history of such a problem in the past. Denies any heart disease or lung disease. PAST SURGICAL HISTORY: The patient has had several operations of the spine and lower spine anterior post-fixation posterior approach fixation and also neck operation for the surgical problems with hardware fixation and also has had some operation on the thoracic spine. The patient has had operation on his left shoulder due to rotator cuff injury. REVIEW OF SYSTEMS: Basically, is related to this disease and also the spine problems with degenerative disk disease of the cervical spine and lumbar spine and probably also thoracic spine. The shoulder injury needing operation. One point should be mentioned that the patient states that a long time ago, even before having a lumbar spine operation he had a problem with just controlling his diarrhea or soft stool when he coughed. He was not able to control so there was some degree of the sphincters, insufficiency of the anal. I assume this has been due to lumbosacral disk pathology for which later on the patient eventually had operation. SOCIAL HISTORY: The patient lives alone, used to drink a lot of heavy alcohol, but he said the last time he drank was 5 years ago, has been a chronic smoker 1 pack of cigarettes per day for the last 50 years. PHYSICAL EXAMINATION: GENERAL: The patient right now is alert, awake, oriented, no acute distress. VITAL SIGNS: Temperature today maximum is 98.3, heart rate 66, respiration 18, blood pressure 129/81, saturation 97% on room air. LABORATORY DATA: Today, WBC 5600 with 47% neutrophils, of course, on admission to this hospital on was almost the same almost 6400 and 60% segmented. Platelet count was normal. Chemistry on 09/05, sodium, potassium and creatinine normal. Only a slight elevation of AST and ALT and some elevation of the globulin and also lipase was elevated when he referred to the [facility], almost twice the normal value. We are going to repeat it here tomorrow. Coagulation profile has not been done. His urinalysis is normal. HEART: Regular. LUNGS: Clear. ABDOMEN: Not distended. Bowel sound is almost normal. There is no rigidity. Mild tenderness left lower quadrant and left upper quadrant, some tenderness on deep pressure mainly in the left lower quadrant, but also on the left lower quadrant and to some extent in the right upper quadrant. No rebound tenderness. EXTREMITIES: Lower extremity: No pitting edema, no calf tenderness. ASSESSMENT AND PLAN: This is a 64-year-old gentleman with a history of chronic smoker's possible COPD and history of multiple cervical spine and lumbosacral spine operation with fusion which was done by Dr. Hutchinson in this hospital in the past. The patient was transferred with the impression of diverticulitis of the sigmoid colon. The patient has been started on antibiotics here, but still continues to have diarrhea and that is actually the main problem that he has been suffering from diarrhea. He says it is like water for 2 or almost 3 weeks now. 1. From a surgical point of view, we agree with mild diverticulitis to be treated with appropriate antibiotics. 2. Possibility of infectious colitis also should be considered. Therefore, I requested a stool culture and a stool for Clostridium difficile. 3. I would suggest that a GI colleague be consulted for possibility of doing colonoscopy done now or later on to make sure that there is no other pathology in the colon, especially no malignant pathology which is causing diarrhea. Also, it should be mentioned the CT scan from [facility] has showed fluid- filled small bowel loops with slight dilatation. This also should be considered. This could be actually enterocolitis due to some pathogens as well. We will continue to follow along with other colleagues, considering that there is extensive diverticulosis. I would ____ our colleagues and also medical service that this patient eventually may require extensive colon resection for extensive diverticulosis if he continues to have diverticulitis in the future, but at this time our focus is mainly on the sigmoid mild diverticulitis and any other causes of severe watery diarrhea. Thank you very much for consultation. Dictated By: GRETA JORGENSEN MD PS/TORIBIO Conf#: [id number] DID#: [id number] CC: DACIA CARL;*Gabriela* MTDErvin
[2018-09-09 07:55] VITALS: BP 132/70; PULSE 75; RESP 19
[2018-09-09] MEDS: FAMOTIDINE 20 MG INJ IV SCH ×2 (09:38→21:50)
[2018-09-09] MEDS: DEXTROSE 5%-0.45% NACL 1,000 ML IV SCH (10:56)
--- NOTE | 2018-09-09 14:12 | PN ---
DATE: 09/09/2018 SUBJECTIVE: States that feels better, pain is less and he has had a bowel movement, but no diarrhea per report, soft stool, so they sent the culture from that. OBJECTIVE: GENERAL: Awake, alert, oriented, walking around on the hallway. VITAL SIGNS: Temperature maximum 98.9, heart rate 75, respirations 19, blood pressure 132/70, saturation 98% room air. LABORATORY DATA: WBC today is 5000. . Chemistry has not been done today. HEART: Regular. LUNGS: Clear. ABDOMEN: Soft, some tenderness in left lower quadrant and around the umbilicus, mainly on the left side. Bowel sound is present. EXTREMITIES: Legs no calf tenderness. MICROBIOLOGY: Nothing is available yet. The GI colleague, Dr. Simon has seen the patient. He is suggesting colonoscopy after 6 weeks. PLAN: The patient with diverticulitis of the proximal sigmoid colon, mild diverticulitis with having diarrhea for 2 weeks. Now diarrhea has stopped. Patient appears to be responding to IV antibiotic treatment and he says about the pain and has got better at least 50%, so suggestion from surgical point of view, continue antibiotics. Gradually advance diet. I think the patient should get more antibiotic IV because previously has been receiving antibiotic by mouth at home for 10 days, but did not help. We will continue to follow while the patient is in the hospital. Dictated By: GRETA FRANCO/TORIBIO Conf#: [id number] DID#: [id number] CC: DACIA CARL;*EndCC* MTDD
[2018-09-09] MEDS: metroNIDAZOLE 500 MG/NS (PMX) 100 ML IVPB SCH ×2 (15:06→22:32)
[2018-09-09 15:38] VITALS: BP 120/67; PULSE 76; RESP 18
--- NOTE | 2018-09-09 15:40 | CONS ---
Assessment/Plan Assessment/Plan Hospital Course (Demo Recall) No acute changes overnight patient is alert feels good and wants to go home no fevers overnight Allergies: Penicillin, Cipro, Levaquin Antimicrobials: Patient is on meropenem and Flagyl Physical examination: Well-developed well-nourished elderly white male who is alert in no distress. Head atraumatic normocephalic neck is supple chest rise symmetrical breath sounds clear. Abdomen soft bowel sounds present. Extremities without cyanosis. Assessment: 1. Diverticulitis of the proximal sigmoid colon 2. Ongoing diarrhea 3. History of IV drug use 4. History of multiple spinal surgeries Plan: Patient remains stable and overall improving, continue antibiotics, follow GI and surgical recommendations Consultation Date/Type/Reason Admit Date/Time Sep 06, 2018 at 08:38 Initial Consult Date Type of Consult id Date/Time of Note DATE: 09/09/18 TIME: 15:40 Exam/Review of Systems Exam Vitals Vital Signs Date Temp Pulse Resp B/P (MAP) Pulse Ox O2 O2 Flow FiO2 Time Delivery Rate 09/09/18 99.6 76 18 120/67 98 15:38 (84) 09/05/18 Room Air 07:51 Intake and Output 09/08/18 09/08/18 09/09/18 1515:00 23:00 07:00 IntakeIntake Total 1040 ml 1820 ml 950 ml BalanceBalance 1040 ml 1820 ml 950 ml Results Result Diagram: 09/07/18 0453 09/07/18 0453 Medications Medication Current Medications Dextrose/Sodium Chloride 1,000 ml @ 75 mls/hr [id number] IV Last administered on 09/09/18at 10:56; Admin Dose 75 MLS/HR; Start 09/04/18 at 21:30 Morphine Sulfate (morphine) 2 mg Q4H PRN IV SEVERE PAIN LEVEL 7-10 Last admini stered on 09/09/18at 15:17; Admin Dose 2 MG; Start 09/04/18 at 21:30 IV Flush (NS 3 ml) 3 ml PER PROTOCOL IV ; Start 09/05/18 at 09:00 Ondansetron HCl (Zofran Inj) 4 mg Q6H PRN IV NAUSEA/VOMITING Last administered on 09/08/18at 12:51; Admin Dose 4 MG; Start 09/05/18 at 09:00 Albuterol/ Ipratropium (Duoneb) 3 ml Q2H RESP THERAPY PRN HHN SHORTNESS OF BREATH; Start 09/05/18 at 09:00 Famotidine (Pepcid Iv) 20 mg BID IV Last administered on 09/09/18at 09:38; Admin Dose 20 MG; Start 09/07/18 at 09:00 Meropenem/Sodium Chloride 50 ml @ 100 mls/hr Q8 IVPB Last administered on 09/09/18at 14:12; Admin Dose 100 MLS/HR; Start 09/07/18 at 14:30 Metronidazole 100 ml @ 100 mls/hr Q8 IVPB Last administered on 09/09/18at 15:06; Admin Dose 100 MLS/HR; Start 09/09/18 at 14:00 MINERVA GARCIA NP Sep 09, 2018 15:40
--- NOTE | 2018-09-09 18:03 | CONS ---
Assessment/Plan Assessment/Plan Assessment/Plan (Daily) IMPRESSION: 1. Abdominal pain secondary to diverticulitis. 2. Depression and anxiety. 3. Status post back surgery. 4. Nicotine abuse. 5. Mild transaminitis most probably related to alcoholic liver disease. 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 Plan Continue IV antibiotics Advance diet slowly Will repeat colonoscopy after 6 weeks Consultation Date/Type/Reason Admit Date/Time Sep 06, 2018 at 08:38 Initial Consult Date Date/Time of Note DATE: 09/09/18 TIME: 18:01 24 HR Interval Summary Free Text/Dictation Still has significant abdominal pain, good bowel movement no bleeding Constitutional: improved Exam/Review of Systems Exam Vitals Vital Signs Date Temp Pulse Resp B/P (MAP) Pulse Ox O2 O2 Flow FiO2 Time Delivery Rate 09/09/18 99.6 76 18 120/67 98 15:38 (84) 09/05/18 Room Air 07:51 Intake and Output 09/08/18 09/08/18 09/09/18 1515:00 23:00 07:00 IntakeIntake Total 1040 ml 1820 ml 950 ml BalanceBalance 1040 ml 1820 ml 950 ml Constitutional: alert, oriented, well developed Psych: no complaints, nl mood/affect Head: normocephalic, atraumatic Eyes: nl conjunctiva, EOMI, nl lids, nl sclera, PERRL ENMT: nl external ears & nose, nl lips & teeth, nl nasal mucosa & septum Neck: supple, non-tender Respiratory: clear to auscultation, normal air movement Cardiovascular: regular rate and rhythm, nl pulses Gastrointestinal: tender (Left lower quadrant) Musculoskeletal: nl extremities to inspection, nl gait and stance Extremities: normal pulses 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, nl mental status, nl speech, nl strength Skin: nl turgor; No rash or lesions Lymph: nl lymph nodes Results Result Diagram: 09/07/18 0453 09/07/18 045 Medications Medication Current Medications Dextrose/Sodium Chloride 1,000 ml @ 75 mls/hr [id number] IV Last administered on 09/09/18at 10:56; Admin Dose 75 MLS/HR; Start 09/04/18 at 21:30 Morphine Sulfate (morphine) 2 mg Q4H PRN IV SEVERE PAIN LEVEL 7-10 Last administered on 09/09/18 15:17; Admin Dose 2 MG; Start 09/04/18 at 21:30 IV Flush (NS 3 ml) 3 ml PER PROTOCOL IV ; Start 09/05/18 at 09:00 Ondansetron HCl (Zofran Inj) 4 mg Q6H PRN IV NAUSEA/VOMITING Last administered on 09/08/18 12:51; Admin Dose 4 MG; Start 09/05/18 at 09:00 Albuterol/ Ipratropium (Duoneb) 3 ml Q2H RESP THERAPY PRN HHN SHORTNESS OF BREATH; Start 09/05/18 at 09:00 Famotidine (Pepcid Iv) 20 mg BID IV Last administered on 09/09/18 09:38; Admin Dose 20 MG; Start 09/07/18 at 09:00 Meropenem/Sodium Chloride 50 ml @ 100 mls/hr Q8 IVPB Last administered on 09/09/18at 14:12; Admin Dose 100 MLS/HR; Start 09/07/18 at 14:30 Metronidazole 100 ml @ 100 mls/hr Q8 IVPB Last administered on 09/09/18 15:06; Admin Dose 100 MLS/HR; Start 09/09/18 at 14:00 OSCAR WILSON MD Sep 09, 2018 18:02
[2018-09-09 20:30] VITALS: BP 119/70; PULSE 111; RESP 18
--- NOTE | 2018-09-09 21:16 | PN ---
Date/Time of Note Date/Time of Note DATE: 09/09/18 TIME: 21:07 Assessment/Plan VTE Prophylaxis Risk score (from Ns)>0 risk: 2 SCD applied (from Ns): Yes Pharmacological prophylaxis: NA/contraindicated Pharm contraindication: liver dx, other Lines/Catheters IV C[facility]ter Type [facility]from [facility]): Peripheral IV Central line still needed: Yes Reason Cath still needed: urinary retention Assessment/Plan Hospital Course Pt tolerates diet without nausea and vomiting, denies any diarrhea. Patient complains of abdominal pain, continued on meropenem and Flagyl. Assessment/Plan -Proximal and left colon diverticulitis, continue meropenem. Dr Geller is following in ID consultation. Dr Simon is following in GI consultation. Dr Partha pacheco is following in general surgery consultation. -Hypertension, pressure is within normal limits. -History of multiple surgeries on cervical and lumbar spine -Tobacco dependence, cessation strongly advised, continue nicotine patch -History of IV drug use Further recommendations based on clinical course. Plan of care discussed with Dr. Wheatley. Result Diagram: 09/07/1845209/07/18452 Exam/Review of Systems Exam Vitals Vital Signs Date Temp Pulse Resp B/P (MAP) Pulse Ox O2 O2 Flow FiO2 Time Delivery Rate 09/09/18 99.6 76 18 120/67 98 15:38 (84) 09/05/18 Room Air 07:51 Intake and Output 09/08/18 09/08/18 09/09/18 1515:00 23:00 07:00 IntakeIntake Total 1040 ml 1820 ml 950 ml BalanceBalance 1040 ml 1820 ml 950 ml Exam Constitutional: alert, oriented Head: normocephalic Respiratory: clear to auscultation Cardiovascular: nl pulses Gastrointestinal: soft, tender Extremities: normal pulses Neurological: nl mental status Skin: nl turgor Medications Medication Current Medications Dextrose/Sodium Chloride 1,000 ml @ 75 mls/hr [id number] IV Last administered on 09/09/18at 10:56; Admin Dose 75 MLS/HR; Start 09/04/18 at 21:30 Morphine Sulfate (morphine) 2 mg Q4H PRN IV SEVERE PAIN LEVEL 7-10 Last administered on 09/09/18at 15:17; Admin Dose 2 MG; Start 09/04/18 at 21:30 IV Flush (NS 3 ml) 3 ml PER PROTOCOL IV ; Start 09/05/18 at 09:00 Ondansetron HCl (Zofran Inj) 4 mg Q6H PRN IV NAUSEA/VOMITING Last administered on 09/08/18at 12:51; Admin Dose 4 MG; Start 09/05/18 at 09:00 Albuterol/ Ipratropium (Duoneb) 3 ml Q2H RESP THERAPY PRN HHN SHORTNESS OF BREATH; Start 09/05/18 at 09:00 Famotidine (Pepcid Iv) 20 mg BID IV Last administered on 09/09/18 09:38; Admin Dose 20 MG; Start 09/07/18 at 09:00 Meropenem/Sodium Chloride 50 ml @ 100 mls/hr Q8 IVPB Last administered on 09/09/18at 14:12; Admin Dose 100 MLS/HR; Start 09/07/18 at 14:30 Metronidazole 100 ml @ 100 mls/hr Q8 IVPB Last administered on 09/09/18at 15:06; Admin Dose 100 MLS/HR; Start 09/09/18 at 14:00 AYESHA HAWKINS Sep 09, 2018 21:16
[2018-09-09] MEDS ORDERED: ACETAMINOPHEN 325 MG TAB PO PRN (23:00)
[2018-09-10 01:52] VITALS: BP 122/78; PULSE 92; RESP 18
[2018-09-10] MEDS: DEXTROSE 5%-0.45% NACL 1,000 ML IV SCH (04:09)
[2018-09-10] MEDS: MEROPENEM 1 GM/50ML(PMX) 50 ML IVPB SCH ×3 (05:40→22:34)
[2018-09-10] MEDS: metroNIDAZOLE 500 MG/NS (PMX) 100 ML IVPB SCH ×3 (06:04→21:55)
[2018-09-10 07:42] VITALS: BP 121/80; PULSE 92; RESP 18
[2018-09-10] MEDS: FAMOTIDINE 20 MG INJ IV SCH ×2 (08:53→21:56)
[2018-09-10] MEDS: morphine 2 MG INJ IV PRN ×4 (10:49→23:45)
--- NOTE | 2018-09-10 11:00 | CONS ---
Assessment/Plan Assessment/Plan Assessment/Plan (Daily) IMPRESSION: 1. Abdominal pain secondary to diverticulitis. Patient's has a temperature of 101 and WBC count jumped to 23,000 despite antibiotic 2. Depression and anxiety. 3. Status post back surgery. 4. Nicotine abuse. 5. Mild transaminitis most probably related to alcoholic liver disease. 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 Plan Keep patient n.p.o. Continue antibiotic Stat CAT scan of the abdomen and pelvis. Discussed with Dr. Lozada Consultation Date/Type/Reason Admit Date/Time Sep 06, 2018 at 08:38 Initial Consult Date Date/Time of Note DATE: 09/10/18 TIME: 10:57 24 HR Interval Summary Free Text/Dictation Patient complains of abdominal pain. It has not decreased in intensity. Stool is liquid Exam/Review of Systems Exam Vitals Vital Signs Date Temp Pulse Resp B/P (MAP) Pulse Ox O2 O2 Flow FiO2 Time Delivery Rate 09/10/18 98.3 92 18 121/80 99 Room Air 07:42 (94) Intake and Output 09/09/18 09/09/18 09/10/18 1515:00 23:00 07:00 IntakeIntake Total 1500 ml 1120 ml 775 ml BalanceBalance 1500 ml 1120 ml 775 ml Constitutional: alert, oriented, well developed Psych: no complaints, nl mood/affect Head: normocephalic, atraumatic Eyes: nl conjunctiva, EOMI, nl lids, nl sclera, PERRL ENMT: nl external ears & nose, nl lips & teeth, nl nasal mucosa & septum Neck: supple, non-tender Respiratory: clear to auscultation Gastrointestinal: soft, tender Musculoskeletal: nl extremities to inspection, nl gait and stance Extremities: normal pulses 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, nl mental status, nl speech, nl strength Results Result Diagram: 09/10/1858 09/10/18 0558 Results 24hrs Laboratory Tests Test 09/10/18 05:58 White Blood Count 23.0 #H Red Blood Count 5.27 Hemoglobin 15.8 Hematocrit 46.8 Mean Corpuscular Volume 88.8 Mean Corpuscular Hemoglobin 30.0 Mean Corpuscular Hemoglobin Concent 33.8 Red Cell Distribution Width 12.9 Platelet Count 352 Mean Platelet Volume 9.9 Immature Granulocytes % 0.800 H Neutrophils % 77.6 H Lymphocytes % 9.8 L Monocytes % 11.1 H Eosinophils % 0.5 Basophils % 0.2 Nucleated Red Blood Cells % 0.0 Immature Granulocytes # 0.180 H Neutrophils # 17.8 H Lymphocytes # 2.3 Monocytes # 2.6 H Eosinophils # 0.1 Basophils # 0.1 Nucleated Red Blood Cells # 0.0 Sodium Level 142 Potassium Level 3.9 Chloride Level 103 Carbon Dioxide Level 29 Anion Gap 10 Blood Urea Nitrogen 13 Creatinine 0.71 Est Glomerular Filtrat Rate mL/min > 60 Glucose Level 111 Calcium Level 8.8 Medications Medication Current Medications Dextrose/Sodium Chloride 1,000 ml @ 75 mls/hr [id number] IV Last administered on 09/10/18 04:09; Admin Dose 75 MLS/HR; Start 09/04/18 at 21:30 Morphine Sulfate (morphine) 2 mg Q4H PRN IV SEVERE PAIN LEVEL 7-10 Last administered on 09/10/18 10:49; Admin Dose 2 MG; Start 09/04/18 at 21:30 IV Flush (NS 3 ml) 3 ml PER PROTOCOL IV ; Start 09/05/18 at 09:00 Ondansetron HCl (Zofran Inj) 4 mg Q6H PRN IV NAUSEA/VOMITING Last administered on 09/08/18 12:51; Admin Dose 4 MG; Start 09/05/18 at 09:00 Albuterol/ Ipratropium (Duoneb) 3 ml Q2H RESP THERAPY PRN HHN SHORTNESS OF BREATH; Start 09/05/18 at 09:00 Famotidine (Pepcid Iv) 20 mg BID IV Last administered on 09/10/18 08:53; Admin Dose 20 MG; Start 09/07/18 at 09:00 Meropenem/Sodium Chloride 50 ml @ 100 mls/hr Q8 IVPB Last administered on 09/10/18 05:40; Admin Dose 100 MLS/HR; Start 09/07/18 at 14:30 Metronidazole 100 ml @ 100 mls/hr Q8 IVPB Last administered on 09/10/18 06:04; Admin Dose 100 MLS/HR; Start 09/09/18 at 14:00 Acetaminophen (Tylenol Tab) 650 mg Q8 PRN PO MILD PAIN(1-3)OR ELEVATED TEMP Last administered on 09/10/18at 02:15; Admin Dose 650 MG; Start 09/09/18 at 23:00 OSCAR WILSON MD Sep 10, 2018 11:00
--- NOTE | 2018-09-10 12:46 | PN ---
Date/Time of Note Date/Time of Note DATE: 09/10/18 TIME: 12:46 Assessment/Plan VTE Prophylaxis Risk score (from Ns)>0 risk: 2 SCD applied (from Nsg): No Lines/Catheters IV Catheter Type (from Nrs): Peripheral IV Assessment/Plan Assessment/Plan -Proximal and left colon diverticulitis, continue meropenem. Dr Geller is following in ID consultation. Dr Simon is following in GI consultation. Dr Lozada is following in general surgery consultation. -Hypertension, pressure is within normal limits. -History of multiple surgeries on cervical and lumbar spine -Tobacco dependence, cessation strongly advised, continue nicotine patch -History of IV drug use Result Diagram: 09/10/18 0558 09/10/1858 Results 24hrs Laboratory Tests Test 09/10/18 05:58 09/10/18 11:09 White Blood Count 23.0 #H Red Blood Count 5.27 Hemoglobin 15.8 Hematocrit 46.8 Mean Corpuscular Volume 88.8 Mean Corpuscular Hemoglobin 30.0 Mean Corpuscular Hemoglobin Concent 33.8 Red Cell Distribution Width 12.9 Platelet Count 352 Mean Platelet Volume 9.9 Immature Granulocytes % 0.800 H Neutrophils % 77.6 H Lymphocytes % 9.8 L Monocytes % 11.1 H Eosinophils % 0.5 Basophils % 0.2 Nucleated Red Blood Cells % 0.0 Immature Granulocytes # 0.180 H Neutrophils # 17.8 H Lymphocytes # 2.3 Monocytes # 2.6 H Eosinophils # 0.1 Basophils # 0.1 Nucleated Red Blood Cells # 0.0 Sodium Level 142 Potassium Level 3.9 Chloride Level 103 Carbon Dioxide Level 29 Anion Gap 10 Blood Urea Nitrogen 13 Creatinine 0.71 Est Glomerular Filtrat Rate mL/min > 60 Glucose Level 111 Calcium Level 8.8 Prothrombin Time 14.0 Prothrombin Time Ratio 1.1 INR International Normalized Ratio 1.07 Activated Partial Thromboplast Time 36.1 H Exam/Review of Systems Exam Vitals Vital Signs Date Temp Pulse Resp B/P (MAP) Pulse Ox O2 O2 Flow FiO2 Time Delivery Rate 09/10/18 98.3 92 18 121/80 99 Room Air 07:42 (94) Intake and Output 09/09/18 09/09/18 09/10/18 1515:00 23:00 07:00 IntakeIntake Total 1500 ml 1120 ml 775 ml BalanceBalance 1500 ml 1120 ml 775 ml Results Results 24hrs Laboratory Tests Test 09/10/18 05:58 09/10/18 11:09 White Blood Count 23.0 #H Red Blood Count 5.27 Hemoglobin 15.8 Hematocrit 46.8 Mean Corpuscular Volume 88.8 Mean Corpuscular Hemoglobin 30.0 Mean Corpuscular Hemoglobin Concent 33.8 Red Cell Distribution Width 12.9 Platelet Count 352 Mean Platelet Volume 9.9 Immature Granulocytes % 0.800 H Neutrophils % 77.6 H Lymphocytes % 9.8 L Monocytes % 11.1 H Eosinophils % 0.5 Basophils % 0.2 Nucleated Red Blood Cells % 0.0 Immature Granulocytes # 0.180 H Neutrophils # 17.8 H Lymphocytes # 2.3 Monocytes # 2.6 H Eosinophils # 0.1 Basophils # 0.1 Nucleated Red Blood Cells # 0.0 Sodium Level 142 Potassium Level 3.9 Chloride Level 103 Carbon Dioxide Level 29 Anion Gap 10 Blood Urea Nitrogen 13 Creatinine 0.71 Est Glomerular Filtrat Rate mL/min > 60 Glucose Level 111 Calcium Level 8.8 Prothrombin Time 14.0 Prothrombin Time Ratio 1.1 INR International Normalized Ratio 1.07 Activated Partial Thromboplast Time 36.1 H Medications Medication Current Medications Morphine Sulfate (morphine) 2 mg Q4H PRN IV SEVERE PAIN LEVEL 7-10 Last administered on 09/10/18at 10:49; Admin Dose 2 MG; Start 09/04/18 at 21:30 IV Flush (NS 3 ml) 3 ml PER PROTOCOL IV ; Start 09/05/18 at 09:00 Ondansetron HCl (Zofran Inj) 4 mg Q6H PRN IV NAUSEA/VOMITING Last administered on 09/08/18at 12:51; Admin Dose 4 MG; Start 09/05/18 at 09:00 Albuterol/ Ipratropium (Duoneb) 3 ml Q2H RESP THERAPY PRN HHN SHORTNESS OF BREATH; Start 09/05/18 at 09:00 Famotidine (Pepcid Iv) 20 mg BID IV Last administered on 09/10/18at 08:53; Admin Dose 20 MG; Start 09/07/18 at 09:00 Meropenem/Sodium Chloride 50 ml @ 100 mls/hr Q8 IVPB Last administered on 09/10/18at 05:40; Admin Dose 100 MLS/HR; Start 09/07/18 at 14:30 Metronidazole 100 ml @ 100 mls/hr Q8 IVPB Last administered on 09/10/18at 06:04; Admin Dose 100 MLS/HR; Start 09/09/18 at 14:00 Acetaminophen (Tylenol Tab) 650 mg Q8 PRN PO MILD PAIN(1-3)OR ELEVATED TEMP Last administered on 09/10/18at 02:15; Admin Dose 650 MG; Start 09/09/18 at 23:00 Potassium Chloride/Dextrose/ Sod Cl 1,000 ml @ 125 mls/hr Q8H IV ; Start 09/10/18 at 12:30 MARITA AUGUST Sep 10, 2018 12:46
--- NOTE | 2018-09-10 13:05 | PN ---
DATE: 09/10/2018 SUBJECTIVE: The patient complains of more abdominal pain, especially on the left side, left lower quadrant. States that since last night, the pain has gotten worse. According to the charts, the patient has been running a temperature 100 and above since last night at 8 o'clock last time. VITAL SIGNS: Temperature was 100.6 and then at 1:00 a.m., was 101.1 and at 3:00 a.m., it was 99.8, at 7:42 a.m. today is 98.3. No nausea, no vomiting. Has had loose bowel movement today. OBJECTIVE: GENERAL: Awake, alert, oriented, does not appear in acute distress, lying down in the bed. HEART: Regular tachycardia. LUNGS: Clear. ABDOMEN: May be slightly distended more than before. Bowel sounds are present, 3+/4+. There is no rigidity. There is still some voluntary guarding mainly on the left side. There is more tenderness in the left lower quadrant and also right lower quadrant and slightly also on both upper quadrants. There is some evidence of pelvic peritoneal sign due to pelvic peritoneal irritation. LABORATORY DATA: Today, sodium, potassium, BUN, creatinine within normal limits. Hematology: WBC has increased to 23,000 with 77% segmented, hemoglobin actually increased to 15.8 and 46.8, hematocrit which is of course due to dehydration and hemoconcentration. ASSESSMENT AND PLAN: The patient with mild diverticulitis of the sigmoid colon, was admitted, started on antibiotic as of a few days ago. The patient gradually got better and was improving so much that yesterday he was asking me to send him home, but apparently as of last night, . Condition has got worse. His temperature has gone up, has been experiencing more pain and has got diarrhea today and leukocyte count has increased, so there is very much suspicion that he has perforated and developed peritonitis at least pelvic peritonitis and clinical sign of that. I discussed with Sara, the nurse to : 1. Put the patient absolutely n.p.o. 2. Increase the IV to 125 mL. 3. Add 20 mEq KCl per liter of IV. 4. Continue antibiotics. 5. Send stool for Clostridium difficile. 5. Get a CT scan of the abdomen and pelvis with IV contrast stat. I will continue to follow. I actually informed Dr. Simon as well of the situation and the temperature and lab results. I will informed the medical service about new events and my recommendation. Dictated By: GRETA JORGENSEN MD PS/TORIBIO Conf#: [id number] DID#: [id number] CC: DACIA CARL;*EndCC* MTDD
[2018-09-10] MEDS ORDERED: IOHEXOL 300MG/ML 150 ML BTL ONE (13:58)
[2018-09-10] MEDS ORDERED: SOD CHLORIDE 0.9% 100 ML ONE (13:58)
--- NOTE | 2018-09-10 14:29 | CONS ---
Assessment/Plan Assessment/Plan Hospital Course (Demo Recall) Patient spiked fever last night 101.1 currently afebrile in no distress WBC went up to 23 neutrophils 77.6 BUN 13 creatinine 0.71. He still has ongoing diarrhea. Chest x-ray revealed scattered atelectasis in both lungs Antimicrobials: Flagyl meropenem Allergies: Penicillin, Cipro, Levaquin Physical examination: Well-developed well-nourished elderly white male who is alert in no distress. Head atraumatic normocephalic neck is supple chest rise symmetrical breath sounds clear. Abdomen soft bowel sounds present. Extremities without cyanosis. Assessment: 1. Fevers with worsening leukocytosis 1. Diverticulitis of the proximal sigmoid colon 2. Ongoing diarrhea rule out C. difficile 3. History of IV drug use 4. History of multiple spinal surgeries Plan: Clinically stable pending stool for C. difficile, will order CT of the abdomen and await for final results and cultures Consultation Date/Type/Reason Admit Date/Time Sep 06, 2018 at 08:38 Initial Consult Date Type of Consult id Date/Time of Note DATE: 09/10/18 TIME: 14:24 Exam/Review of Systems Exam Vitals Vital Signs Date Temp Pulse Resp B/P (MAP) Pulse Ox O2 O2 Flow FiO2 Time Delivery Rate 09/10/18 98.3 92 18 121/80 99 Room Air 07:42 (94) Intake and Output 09/09/18 09/09/18 09/10/18 1515:00 23:00 07:00 IntakeIntake Total 1500 ml 1120 ml 775 ml BalanceBalance 1500 ml 1120 ml 775 ml Results Result Diagram: 09/10/18 0558 09/10/18 0558 Results 24hrs Laboratory Tests Test 09/10/18 05:58 09/10/18 11:09 White Blood Count 23.0 #H Red Blood Count 5.27 Hemoglobin 15.8 Hematocrit 46.8 Mean Corpuscular Volume 88.8 Mean Corpuscular Hemoglobin 30.0 Mean Corpuscular Hemoglobin Concent 33.8 Red Cell Distribution Width 12.9 Platelet Count 352 Mean Platelet Volume 9.9 Immature Granulocytes % 0.800 H Neutrophils % 77.6 H Lymphocytes % 9.8 L Monocytes % 11.1 H Eosinophils % 0.5 Basophils % 0.2 Nucleated Red Blood Cells % 0.0 Immature Granulocytes # 0.180 H Neutrophils # 17.8 H Lymphocytes # 2.3 Monocytes # 2.6 H Eosinophils # 0.1 Basophils # 0.1 Nucleated Red Blood Cells # 0.0 Sodium Level 142 Potassium Level 3.9 Chloride Level 103 Carbon Dioxide Level 29 Anion Gap 10 Blood Urea Nitrogen 13 Creatinine 0.71 Est Glomerular Filtrat Rate mL/min > 60 Glucose Level 111 Calcium Level 8.8 Prothrombin Time 14.0 Prothrombin Time Ratio 1.1 INR International Normalized Ratio 1.07 Activated Partial Thromboplast Time 36.1 H Medications Medication Current Medications Morphine Sulfate (morphine) 2 mg Q4H PRN IV SEVERE PAIN LEVEL 7-10 Last administered on 09/10/18 10:49; Admin Dose 2 MG; Start 09/04/18 at 21:30 IV Flush (NS 3 ml) 3 ml PER PROTOCOL IV ; Start 09/05/18 at 09:00 Ondansetron HCl (Zofran Inj) 4 mg Q6H PRN IV NAUSEA/VOMITING Last administered on 09/08/18 12:51; Admin Dose 4 MG; Start 09/05/18 at 09:00 Albuterol/ Ipratropium (Duoneb) 3 ml Q2H RESP THERAPY PRN HHN SHORTNESS OF BREATH; Start 09/05/18 at 09:00 Famotidine (Pepcid Iv) 20 mg BID IV Last administered on 09/10/18 08:53; Admin Dose 20 MG; Start 09/07/18 at 09:00 Meropenem/Sodium Chloride 50 ml @ 100 mls/hr Q8 IVPB Last administered on 09/10/18at 05:40; Admin Dose 100 MLS/HR; Start 09/07/18 at 14:30 Metronidazole 100 ml @ 100 mls/hr Q8 IVPB Last administered on 09/10/18 06:04; Admin Dose 100 MLS/HR; Start 09/09/18 at 14:00 Acetaminophen (Tylenol Tab) 650 mg Q8 PRN PO MILD PAIN(1-3)OR ELEVATED TEMP Last administered on 09/10/18 02:15; Admin Dose 650 MG; Start 09/09/18 at 23:00 Potassium Chloride/Dextrose/ Sod Cl 1,000 ml @ 125 mls/hr Q8H IV ; Start 09/10/18 at 12:30 MINERVA GARCIA NP Sep 10, 2018 14:29
[2018-09-10 14:47] VITALS: BP 97/55; PULSE 83; RESP 18
[2018-09-10] MEDS: D5W-0.45 NACL + KCL 20 MEQ 1,000 ML IV SCH (14:55)
[2018-09-10 15:03] VITALS: BP 102/56
[2018-09-10 19:59] VITALS: BP 106/73; PULSE 76; RESP 18
[2018-09-11 01:37] VITALS: BP 104/51; PULSE 79; RESP 18
[2018-09-11] MEDS: D5W-0.45 NACL + KCL 20 MEQ 1,000 ML IV SCH ×4 (02:24→22:03)
[2018-09-11] MEDS: metroNIDAZOLE 500 MG/NS (PMX) 100 ML IVPB SCH ×3 (05:12→22:58)
[2018-09-11] MEDS: MEROPENEM 1 GM/50ML(PMX) 50 ML IVPB SCH ×3 (06:11→22:20)
[2018-09-11] MEDS: morphine 2 MG INJ IV PRN ×4 (06:14→21:05)
[2018-09-11 08:08] VITALS: BP 126/75; PULSE 78; RESP 19
[2018-09-11] MEDS: FAMOTIDINE 20 MG INJ IV SCH ×2 (09:20→21:05)
--- NOTE | 2018-09-11 10:57 | CONS ---
Assessment/Plan Assessment/Plan Assessment/Plan (Daily) Assessment/Plan Assessment/Plan Assessment/Plan (Daily) IMPRESSION: 1. Abdominal pain secondary to diverticulitis., Or colitis 2. Depression and anxiety. 3. Status post back surgery. 4. Nicotine abuse. 5. Mild transaminitis most probably related to alcoholic liver disease. 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 Plan Keep patient n.p.o. Continue antibiotic Stat CAT scan of the abdomen and pelvis. Discussed with Dr. Lozada CT scan of the abdomen and pelvis was negative for any perforation or abscess. There was a thickening of the mucosal lining of the sigmoid colon and rectum. Patient is afebrile now WBC has dropped down to 15,000 and is on antibiotic meropenem and Flagyl. Stool for C. difficile has been sent, and will monitor WBC count closely Consultation Date/Type/Reason Admit Date/Time Sep 06, 2018 at 08:38 Initial Consult Date Date/Time of Note DATE: 09/11/18 TIME: 10:55 24 HR Interval Summary Constitutional: improved Exam/Review of Systems Exam Vitals Vital Signs Date Temp Pulse Resp B/P (MAP) Pulse Ox O2 O2 Flow FiO2 Time Delivery Rate 09/11/18 98.4 78 19 126/75 94 08:08 (92) 09/10/18 Room Air 14:47 Intake and Output 09/10/18 09/10/18 09/11/18 1515:00 23:00 07:00 IntakeIntake Total 300 ml 650 ml 1350 ml BalanceBalance 300 ml 650 ml 1350 ml Constitutional: alert, oriented, well developed ENMT: nl external ears & nose, nl lips & teeth, nl nasal mucosa & septum Neck: supple, non-tender Respiratory: clear to auscultation, normal air movement Gastrointestinal: tender (Left lower quadrant) Extremities: normal pulses Results Result Diagram: 09/11/18 0656 09/11/18 0656 Results 24hrs Laboratory Tests Test 09/10/18 11:09 09/11/18 06:56 Prothrombin Time 14.0 Prothrombin Time Ratio 1.1 INR International Normalized Ratio 1.07 Activated Partial Thromboplast Time 36.1 H White Blood Count 15.7 #H Red Blood Count 4.86 Hemoglobin 14.5 Hematocrit 43.5 Mean Corpuscular Volume 89.5 Mean Corpuscular Hemoglobin 29.8 Mean Corpuscular Hemoglobin Concent 33.3 Red Cell Distribution Width 13.2 Platelet Count 303 Mean Platelet Volume 9.7 Immature Granulocytes % 0.400 Neutrophils % 71.8 Lymphocytes % 13.4 L Monocytes % 12.0 H Eosinophils % 2.1 Basophils % 0.3 Nucleated Red Blood Cells % 0.0 Immature Granulocytes # 0.060 H Neutrophils # 11.3 H Lymphocytes # 2.1 Monocytes # 1.9 H Eosinophils # 0.3 Basophils # 0.1 Nucleated Red Blood Cells # 0.0 Sodium Level 142 Potassium Level 4.0 Chloride Level 106 Carbon Dioxide Level 27 Anion Gap 9 Blood Urea Nitrogen 15 Creatinine 0.67 Est Glomerular Filtrat Rate mL/min > 60 Glucose Level 94 Calcium Level 8.6 Total Bilirubin 0.9 Direct Bilirubin 0.00 Indirect Bilirubin 0.9 Aspartate Amino Transf (AST/SGOT) 62 H Alanine Aminotransferase (ALT/SGPT) 68 Alkaline Phosphatase 79 Total Protein 7.1 Albumin 3.7 Globulin 3.40 H Albumin/Globulin Ratio 1.08 Medications Medication Current Medications Morphine Sulfate (morphine) 2 mg Q4H PRN IV SEVERE PAIN LEVEL 7-10 Last administered on 09/11/18 06:14; Admin Dose 2 MG; Start 09/04/18 at 21:30 IV Flush (NS 3 ml) 3 ml PER PROTOCOL IV ; Start 09/05/18 at 09:00 Ondansetron HCl (Zofran Inj) 4 mg Q6H PRN IV NAUSEA/VOMITING Last administered on 09/08/18at 12:51; Admin Dose 4 MG; Start 09/05/18 at 09:00 Albuterol/ Ipratropium (Duoneb) 3 ml Q2H RESP THERAPY PRN HHN SHORTNESS OF BREATH; Start 09/05/18 at 09:00 Famotidine (Pepcid Iv) 20 mg BID IV Last administered on 09/11/18 09:20; Admin Dose 20 MG; Start 09/07/18 at 09:00 Meropenem/Sodium Chloride 50 ml @ 100 mls/hr Q8 IVPB Last administered on 09/11/18 06:11; Admin Dose 100 MLS/HR; Start 09/07/18 at 14:30 Metronidazole 100 ml @ 100 mls/hr Q8 IVPB Last administered on 09/11/18 05:12; Admin Dose 100 MLS/HR; Start 09/09/18 at 14:00 Acetaminophen (Tylenol Tab) 650 mg Q8 PRN PO MILD PAIN(1-3)OR ELEVATED TEMP Last administered on 09/10/18at 02:15; Admin Dose 650 MG; Start 09/09/18 at 23:00 Potassium Chloride/Dextrose/ Sod Cl 1,000 ml @ 125 mls/hr Q8H IV Last admin istered on 09/11/18at 02:24; Admin Dose 125 MLS/HR; Start 09/10/18 at 12:30 OSCAR WILSON MD Sep 11, 2018 10:57
--- NOTE | 2018-09-11 11:30 | PN ---
Date/Time of Note Date/Time of Note DATE: 09/11/18 TIME: 11:29 Assessment/Plan VTE Prophylaxis Risk score (from [facility] [place])>0 risk: 2 SCD applied (from [facility] [place]): No SCD contraindicated: other Pharmacological prophylaxis: LMWH Lines/Catheters IV Catheter Type (from [facility]): Peripheral IV Assessment/Plan Hospital Course -Proximal and left colon diverticulitis, continue meropenem. Dr Geller is follo wing in ID consultation. Dr Simon is following in GI consultation. Dr Lozada is following in general surgery consultation. -Hypertension, pressure is within normal limits. -History of multiple surgeries on cervical and lumbar spine -Tobacco dependence, cessation strongly advised, continue nicotine patch -History of IV drug use Result Diagram: 09/11/1856 09/11/1856 Results 24hrs Laboratory Tests Test 09/11/18 06:56 White Blood Count 15.7 #H Red Blood Count 4.86 Hemoglobin 14.5 Hematocrit 43.5 Mean Corpuscular Volume 89.5 Mean Corpuscular Hemoglobin 29.8 Mean Corpuscular Hemoglobin Concent 33.3 Red Cell Distribution Width 13.2 Platelet Count 303 Mean Platelet Volume 9.7 Immature Granulocytes % 0.400 Neutrophils % 71.8 Lymphocytes % 13.4 L Monocytes % 12.0 H Eosinophils % 2.1 Basophils % 0.3 Nucleated Red Blood Cells % 0.0 Immature Granulocytes # 0.060 H Neutrophils # 11.3 H Lymphocytes # 2.1 Monocytes # 1.9 H Eosinophils # 0.3 Basophils # 0.1 Nucleated Red Blood Cells # 0.0 Sodium Level 142 Potassium Level 4.0 Chloride Level 106 Carbon Dioxide Level 27 Anion Gap 9 Blood Urea Nitrogen 15 Creatinine 0.67 Est Glomerular Filtrat Rate mL/min > 60 Glucose Level 94 Calcium Level 8.6 Total Bilirubin 0.9 Direct Bilirubin 0.00 Indirect Bilirubin 0.9 Aspartate Amino Transf (AST/SGOT) 62 H Alanine Aminotransferase (ALT/SGPT) 68 Alkaline Phosphatase 79 Total Protein 7.1 Albumin 3.7 Globulin 3.40 H Albumin/Globulin Ratio 1.08 Subjective 24 Hr Interval Summary Free Text/Dictation Patient has some abdominal pain Exam/Review of Systems Exam Vitals Vital Signs Date Temp Pulse Resp B/P (MAP) Pulse Ox O2 O2 Flow FiO2 Time Delivery Rate 09/11/18 98.4 78 19 126/75 94 08:08 (92) 6/28/19 Room Air 14:47 Intake and Output 09/10/18 09/10/18 09/11/18 1515:00 23:00 07:00 IntakeIntake Total 300 ml 650 ml 1350 ml BalanceBalance 300 ml 650 ml 1350 ml Constitutional: well developed Head: normocephalic, atraumatic Neck: supple Respiratory: clear to auscultation Cardiovascular: regular rate and rhythm Gastrointestinal: soft, non-tender Extremities: normal pulses Results Results 24hrs Laboratory Tests Test 09/11/18 06:56 White Blood Count 15.7 #H Red Blood Count 4.86 Hemoglobin 14.5 Hematocrit 43.5 Mean Corpuscular Volume 89.5 Mean Corpuscular Hemoglobin 29.8 Mean Corpuscular Hemoglobin Concent 33.3 Red Cell Distribution Width 13.2 Platelet Count 303 Mean Platelet Volume 9.7 Immature Granulocytes % 0.400 Neutrophils % 71.8 Lymphocytes % 13.4 L Monocytes % 12.0 H Eosinophils % 2.1 Basophils % 0.3 Nucleated Red Blood Cells % 0.0 Immature Granulocytes # 0.060 H Neutrophils # 11.3 H Lymphocytes # 2.1 Monocytes # 1.9 H Eosinophils # 0.3 Basophils # 0.1 Nucleated Red Blood Cells # 0.0 Sodium Level 142 Potassium Level 4.0 Chloride Level 106 Carbon Dioxide Level 27 Anion Gap 9 Blood Urea Nitrogen 15 Creatinine 0.67 Est Glomerular Filtrat Rate mL/min > 60 Glucose Level 94 Calcium Level 8.6 Total Bilirubin 0.9 Direct Bilirubin 0.00 Indirect Bilirubin 0.9 Aspartate Amino Transf (AST/SGOT) 62 H Alanine Aminotransferase (ALT/SGPT) 68 Alkaline Phosphatase 79 Total Protein 7.1 Albumin 3.7 Globulin 3.40 H Albumin/Globulin Ratio 1.08 Medications Medication Current Medications Morphine Sulfate (morphine) 2 mg Q4H PRN IV SEVERE PAIN LEVEL 7-10 Last administered on 09/11/18at 06:14; Admin Dose 2 MG; Start 09/04/18 at 21:30 IV Flush (NS 3 ml) 3 ml PER PROTOCOL IV ; Start 09/05/18 at 09:00 Ondansetron HCl (Zofran Inj) 4 mg Q6H PRN IV NAUSEA/VOMITING Last administered on 09/08/18at 12:51; Admin Dose 4 MG; Start 09/05/18 at 09:00 Albuterol/ Ipratropium (Duoneb) 3 ml Q2H RESP THERAPY PRN HHN SHORTNESS OF BREATH; Start 09/05/18 at 09:00 Famotidine (Pepcid Iv) 20 mg BID IV Last administered on 09/11/18 09:20; Admin Dose 20 MG; Start 09/07/18 at 09:00 Meropenem/Sodium Chloride 50 ml @ 100 mls/hr Q8 IVPB Last administered on 09/11/18 06:11; Admin Dose 100 MLS/HR; Start 09/07/18 at 14:30 Metronidazole 100 ml @ 100 mls/hr Q8 IVPB Last administered on 09/11/18 05:12; Admin Dose 100 MLS/HR; Start 09/09/18 at 14:00 Acetaminophen (Tylenol Tab) 650 mg Q8 PRN PO MILD PAIN(1-3)OR ELEVATED TEMP Last administered on 09/10/18 02:15; Admin Dose 650 MG; Start 09/09/18 at 23:00 Potassium Chloride/Dextrose/ Sod Cl 1,000 ml @ 125 mls/hr Q8H IV Last administered on 09/11/18 02:24; Admin Dose 125 MLS/HR; Start 09/10/18 at 12:30 THUAN LARSEN Sep 11, 2018 11:30
--- NOTE | 2018-09-11 13:32 | CONS ---
Assessment/Plan Assessment/Plan Hospital Course (Demo Recall) Awake, no fevers, + abd pain Antimicrobials: Flagyl meropenem Allergies: Penicillin, Cipro, Levaquin Physical examination: Well-developed well-nourished elderly white male who is alert in no distress. Head atraumatic normocephalic neck is supple chest rise symmetrical breath sounds clear. Abdomen soft bowel sounds present. Extremities without cyanosis. Assessment: 1. SIRS 1. Ongoing diverticulitis of the proximal sigmoid colon 2. Ongoing diarrhea rule out C. difficile 3. History of IV drug use 4. History of multiple spinal surgeries Plan: Clinically stable, CT of the abdomen noted, continue antibiotics and follow surgical recommendations Consultation Date/Type/Reason Admit Date/Time Sep 06, 2018 at 08:38 Initial Consult Date Type of Consult id Date/Time of Note DATE: 09/11/18 TIME: 13:31 Exam/Review of Systems Exam Vitals Vital Signs Date Temp Pulse Resp B/P (MAP) Pulse Ox O2 O2 Flow FiO2 Time Delivery Rate 09/11/18 98.4 78 19 126/75 94 08:08 (92) 09/10/18 Room Air 14:47 Intake and Output 09/10/18 09/10/18 09/11/18 1515:00 23:00 07:00 IntakeIntake Total 300 ml 650 ml 1350 ml BalanceBalance 300 ml 650 ml 1350 ml Results Result Diagram: 09/11/18 0656 09/11/18 0656 Results 24hrs Laboratory Tests Test 09/11/18 06:56 White Blood Count 15.7 #H Red Blood Count 4.86 Hemoglobin 14.5 Hematocrit 43.5 Mean Corpuscular Volume 89.5 Mean Corpuscular Hemoglobin 29.8 Mean Corpuscular Hemoglobin Concent 33.3 Red Cell Distribution Width 13.2 Platelet Count 303 Mean Platelet Volume 9.7 Immature Granulocytes % 0.400 Neutrophils % 71.8 Lymphocytes % 13.4 L Monocytes % 12.0 H Eosinophils % 2.1 Basophils % 0.3 Nucleated Red Blood Cells % 0.0 Immature Granulocytes # 0.060 H Neutrophils # 11.3 H Lymphocytes # 2.1 Monocytes # 1.9 H Eosinophils # 0.3 Basophils # 0.1 Nucleated Red Blood Cells # 0.0 Sodium Level 142 Potassium Level 4.0 Chloride Level 106 Carbon Dioxide Level 27 Anion Gap 9 Blood Urea Nitrogen 15 Creatinine 0.67 Est Glomerular Filtrat Rate mL/min > 60 Glucose Level 94 Calcium Level 8.6 Total Bilirubin 0.9 Direct Bilirubin 0.00 Indirect Bilirubin 0.9 Aspartate Amino Transf (AST/SGOT) 62 H Alanine Aminotransferase (ALT/SGPT) 68 Alkaline Phosphatase 79 Total Protein 7.1 Albumin 3.7 Globulin 3.40 H Albumin/Globulin Ratio 1.08 Medications Medication Current Medications Morphine Sulfate (morphine) 2 mg Q4H PRN IV SEVERE PAIN LEVEL 7-10 Last administered on 09/11/18 12:46; Admin Dose 2 MG; Start 09/04/18 at 21:30 IV Flush (NS 3 ml) 3 ml PER PROTOCOL IV ; Start 09/05/18 at 09:00 Ondansetron HCl (Zofran Inj) 4 mg Q6H PRN IV NAUSEA/VOMITING Last administered on 09/08/18 12:51; Admin Dose 4 MG; Start 09/05/18 at 09:00 Albuterol/ Ipratropium (Duoneb) 3 ml Q2H RESP THERAPY PRN HHN SHORTNESS OF BREATH; Start 09/05/18 at 09:00 Famotidine (Pepcid Iv) 20 mg BID IV Last administered on 09/11/18 09:20; Admin Dose 20 MG; Start 09/07/18 at 09:00 Meropenem/Sodium Chloride 50 ml @ 100 mls/hr Q8 IVPB Last administered on 09/11/18 06:11; Admin Dose 100 MLS/HR; Start 09/07/18 at 14:30 Metronidazole 100 ml @ 100 mls/hr Q8 IVPB Last administered on 09/11/18 05:12; Admin Dose 100 MLS/HR; Start 09/09/18 at 14:00 Acetaminophen (Tylenol Tab) 650 mg Q8 PRN PO MILD PAIN(1-3)OR ELEVATED TEMP Last administered on 09/10/18 02:15; Admin Dose 650 MG; Start 09/09/18 at 23:00 Potassium Chloride/Dextrose/ Sod Cl 1,000 ml @ 125 mls/hr Q8H IV Last administered on 09/11/18 12:15; Admin Dose 125 MLS/HR; Start 09/10/18 at 12:30 MINERVA GARCIA NP Sep 11, 2018 13:32
[2018-09-11 14:58] VITALS: BP 108/62; PULSE 71; RESP 19
--- NOTE | 2018-09-11 15:22 | PN ---
DATE: 09/11/2018 SUBJECTIVE: Feels slightly better as far as pain is concerned. Has had some bowel movement, mixed s oft and watery. Per nurse, they have sent C. diff. today. OBJECTIVE: GENERAL: Awake, alert. VITAL SIGNS: Temperature recorded today, maximum 98.4, pulse rate 79, respiration 18, blood pressure 126/75, saturation 94% on room air. LABORATORY DATA: WBC dropped from 23,000 to 15,700. Differential is 71% neutrophils, which differen tial is normal. Hemoglobin 14.5, hematocrit 43.5. Chemistry: Sodium, potassium, BUN, creatinine no rmal. AST slightly elevated at 62, ALT is normal now. HEART: Regular. LUNGS: Clear. ABDOMEN: Nondistended. Bowel sounds 2 to 3+ present. Deep tenderness in left lower quadrant and al so left upper quadrant. The CT scan of the abdomen and pelvis which was done last night, the report is as follows: Interval increase in bowel wall thickening of the sigmoid colon and rectum suggestive of proctocolitis or diverticulitis. No evidence of bowel perforation or abscess. No other signific ant interval changes. ASSESSMENT AND PLAN: The patient was admitted with impression of diverticulitis of sigmoid colon, st arted on antibiotic. The patient gradually was getting better to stable, but somehow patient was sta rted on regular diet. I think for that reason, the patient the night before last night started havin g fever, temperature up to 101 and heart rate increased and the pain got more severe. That is why we got a CT scan and with impression of possible perforation or worsening of the diverticulitis. The p atient was kept n.p.o. and today leukocyte count is slightly less than yesterday. Temperature has be en afebrile, but patient has been started back on regular diet by medical service. Of course, from s urgical perspective, we do not want the patient to have regular diet. I emphasized today to the nurs es to please keep the patient n.p.o. except ice chips and request of the medical colleague, please do not advance patient's diet unless we are aware of that. Dictated By: GRETA JORGENSEN MD PS/TORIBIO Conf#: [id number] DID#: [id number] CC: DACIA CARL;*EndCC*
[2018-09-11] MEDS: VANCOMYCIN HCL 250 MG/5ML POSYG PO SCH (18:12)
[2018-09-11 20:07] VITALS: BP 100/66; PULSE 64; RESP 18
[2018-09-12] MEDS: VANCOMYCIN HCL 250 MG/5ML POSYG PO SCH ×5 (00:11→23:50)
[2018-09-12 02:21] VITALS: BP 97/57; PULSE 68; RESP 18
[2018-09-12] MEDS: morphine 2 MG INJ IV PRN ×4 (02:51→22:30)
[2018-09-12] MEDS: D5W-0.45 NACL + KCL 20 MEQ 1,000 ML IV SCH ×4 (04:30→20:05)
[2018-09-12] MEDS: MEROPENEM 1 GM/50ML(PMX) 50 ML IVPB SCH ×3 (05:40→21:42)
[2018-09-12] MEDS: metroNIDAZOLE 500 MG/NS (PMX) 100 ML IVPB SCH ×3 (06:21→22:30)
[2018-09-12 07:45] VITALS: BP 131/77; PULSE 68; RESP 19
[2018-09-12] MEDS: FAMOTIDINE 20 MG INJ IV SCH ×2 (09:04→21:42)
--- NOTE | 2018-09-12 11:32 | CONS ---
Assessment/Plan Assessment/Plan Hospital Course (Demo Recall) Awake, no fevers over night Antimicrobials: Flagyl meropenem Allergies: Penicillin, Cipro, Levaquin Physical examination: Well-developed well-nourished elderly white male who is alert in no distress. Head atraumatic normocephalic neck is supple chest rise symmetrical breath sounds clear. Abdomen soft bowel sounds present. Extremities without cyanosis. Assessment: 1. SIRS 1. Ongoing diverticulitis of the proximal sigmoid colon 2. Ongoing diarrhea rule out C. difficile 3. History of IV drug use 4. History of multiple spinal surgeries Plan: Stable, continue antibiotics and follow surgical recommendations ==> keep NPO Consultation Date/Type/Reason Admit Date/Time Sep 06, 2018 at 08:38 Initial Consult Date Type of Consult id Date/Time of Note DATE: 09/12/18 TIME: 11:31 Exam/Review of Systems Exam Vitals Vital Signs Date Temp Pulse Resp B/P (MAP) Pulse Ox O2 O2 Flow FiO2 Time Delivery Rate 09/12/18 98.2 68 19 131/77 99 07:45 (95) 09/11/18 Room Air 14:58 Intake and Output 09/11/18 09/11/18 09/12/18 1515:00 23:00 07:00 IntakeIntake Total 1050 ml 1040 ml BalanceBalance 1050 ml 1040 ml Results Result Diagram: 09/11/18 0656 09/11/18 0656 Results 24hrs Laboratory Tests Test 09/12/18 11:11 White Blood Count Pending Red Blood Count Pending Hemoglobin Pending Hematocrit Pending Mean Corpuscular Volume Pending Mean Corpuscular Hemoglobin Pending Mean Corpuscular Hemoglobin Concent Pending Red Cell Distribution Width Pending Platelet Count Pending Mean Platelet Volume Pending Medications Medication Current Medications Morphine Sulfate (morphine) 2 mg Q4H PRN IV SEVERE PAIN LEVEL 7-10 Last administered on 09/12/18at 02:51; Admin Dose 2 MG; Start 09/04/18 at 21:30 IV Flush (NS 3 ml) 3 ml PER PROTOCOL IV ; Start 09/05/18 at 09:00 Ondansetron HCl (Zofran Inj) 4 mg Q6H PRN IV NAUSEA/VOMITING Last administered on 09/08/18at 12:51; Admin Dose 4 MG; Start 09/05/18 at 09:00 Albuterol/ Ipratropium (Duoneb) 3 ml Q2H RESP THERAPY PRN HHN SHORTNESS OF BREATH; Start 09/05/18 at 09:00 Famotidine (Pepcid Iv) 20 mg BID IV Last administered on 09/12/18 09:04; Admin Dose 20 MG; Start 09/07/18 at 09:00 Meropenem/Sodium Chloride 50 ml @ 100 mls/hr Q8 IVPB Last administered on 09/12/18 05:40; Admin Dose 100 MLS/HR; Start 09/07/18 at 14:30 Metronidazole 100 ml @ 100 mls/hr Q8 IVPB Last administered on 09/12/18 06:21; Admin Dose 100 MLS/HR; Start 09/09/18 at 14:00 Acetaminophen (Tylenol Tab) 650 mg Q8 PRN PO MILD PAIN(1-3)OR ELEVATED TEMP Last administered on 09/10/18at 02:15; Admin Dose 650 MG; Start 09/09/18 at 23:00 Potassium Chloride/Dextrose/ Sod Cl 1,000 ml @ 125 mls/hr Q8H IV Last adm inistered on 09/12/18 09:11; Admin Dose 125 MLS/HR; Start 09/10/18 at 12:30 Vancomycin HCl (Vancomycin Oral Syringe) 250 mg Q6 PO Last administered on 09/12/18 05:39; Admin Dose 250 MG; Start 09/11/18 at 18:00 MINERVA GARCIA NP Sep 12, 2018 11:32
--- NOTE | 2018-09-12 12:14 | PN ---
Date/Time of Note Date/Time of Note DATE: 09/12/18 TIME: 12:14 Assessment/Plan VTE [place]axis [place] [facility] [place]: 2 [place]CD [place] [facility] [place] No SCD contraindicated: other Pharmacological prophylaxis: LMWH Lines/Catheters IV C[facility]ter Type (from [facility]): Peripheral IV Assessment/Plan Hospital Course -Proximal and left colon diverticulitis, continue meropenem. Dr Geller is follo wing in ID consultation. Dr Simon is following in GI consultation. Dr Lozada is following in general surgery consultation. -Hypertension, pressure is within normal limits. -History of multiple surgeries on cervical and lumbar spine -Tobacco dependence, cessation strongly advised, continue nicotine patch -History of IV drug use Result Diagram: 09/12/18 1111 09/11/18 0656 Results 24hrs Laboratory Tests Test 09/12/18 11:11 White Blood Count 7.8 # Red Blood Count 4.55 L Hemoglobin 13.7 L Hematocrit 40.6 L Mean Corpuscular Volume 89.2 Mean Corpuscular Hemoglobin 30.1 Mean Corpuscular Hemoglobin Concent 33.7 Red Cell Distribution Width 12.7 Platelet Count 306 Mean Platelet Volume 9.7 Immature Granulocytes % 0.400 Neutrophils % 65.0 Lymphocytes % 20.1 Monocytes % 9.8 Eosinophils % 4.2 Basophils % 0.5 Nucleated Red Blood Cells % 0.0 Immature Granulocytes # 0.030 Neutrophils # 5.1 Lymphocytes # 1.6 Monocytes # 0.8 Eosinophils # 0.3 Basophils # 0.0 Nucleated Red Blood Cells # 0.0 Subjective 24 Hr Interval Summary Free Text/Dictation Patient appears comfortable Exam/Review of Systems Exam Vitals Vital Signs Date Temp Pulse Resp B/P (MAP) Pulse Ox O2 O2 Flow FiO2 Time Delivery Rate 09/12/18 98.2 68 19 131/77 99 07:45 (95) 09/11/18 Room Air 14:58 Intake and Output 09/11/18 09/11/18 09/12/18 1515:00 23:00 07:00 IntakeIntake Total 1050 ml 1040 ml BalanceBalance 1050 ml 1040 ml Constitutional: well developed Head: normocephalic, atraumatic Neck: supple Respiratory: diminished breath sounds Cardiovascular: regular rate and rhythm Gastrointestinal: soft, non-tender Extremities: normal pulses Results Results 24hrs Laboratory Tests Test 09/12/18 11:11 White Blood Count 7.8 # Red Blood Count 4.55 L Hemoglobin 13.7 L Hematocrit 40.6 L Mean Corpuscular Volume 89.2 Mean Corpuscular Hemoglobin 30.1 Mean Corpuscular Hemoglobin Concent 33.7 Red Cell Distribution Width 12.7 Platelet Count 306 Mean Platelet Volume 9.7 Immature Granulocytes % 0.400 Neutrophils % 65.0 Lymphocytes % 20.1 Monocytes % 9.8 Eosinophils % 4.2 Basophils % 0.5 Nucleated Red Blood Cells % 0.0 Immature Granulocytes # 0.030 Neutrophils # 5.1 Lymphocytes # 1.6 Monocytes # 0.8 Eosinophils # 0.3 Basophils # 0.0 Nucleated Red Blood Cells # 0.0 Medications Medication Current Medications Morphine Sulfate (morphine) 2 mg Q4H PRN IV SEVERE PAIN LEVEL 7-10 Last administered on 09/12/18 02:51; Admin Dose 2 MG; Start 09/04/18 at 21:30 IV Flush (NS 3 ml) 3 ml PER PROTOCOL IV ; Start 09/05/18 at 09:00 Ondansetron HCl (Zofran Inj) 4 mg Q6H PRN IV NAUSEA/VOMITING Last administered on 09/08/18 12:51; Admin Dose 4 MG; Start 09/05/18 at 09:00 Albuterol/ Ipratropium (Duoneb) 3 ml Q2H RESP THERAPY PRN HHN SHORTNESS OF BREATH; Start 09/05/18 at 09:00 Famotidine (Pepcid Iv) 20 mg BID IV Last administered on 09/12/18 09:04; Admin Dose 20 MG; Start 09/07/18 at 09:00 Meropenem/Sodium Chloride 50 ml @ 100 mls/hr Q8 IVPB Last administered on 09/12/18 05:40; Admin Dose 100 MLS/HR; Start 09/07/18 at 14:30 Metronidazole 100 ml @ 100 mls/hr Q8 IVPB Last administered on 09/12/18 06:21; Admin Dose 100 MLS/HR; Start 09/09/18 at 14:00 Acetaminophen (Tylenol Tab) 650 mg Q8 PRN PO MILD PAIN(1-3)OR ELEVATED TEMP Last administered on 09/10/18 02:15; Admin Dose 650 MG; Start 09/09/18 at 23:00 Potassium Chloride/Dextrose/ Sod Cl 1,000 ml @ 125 mls/hr Q8H IV Last administered on 09/12/18at 09:11; Admin Dose 125 MLS/HR; Start 09/10/18 at 12:30 Vancomycin HCl (Vancomycin Oral Syringe) 250 mg Q6 PO Last administered on 09/12/18at 11:33; Admin Dose 250 MG; Start 09/11/18 at 18:00 THUAN LARSEN Sep 12, 2018 12:14
[2018-09-12 15:00] VITALS: BP 111/77; PULSE 66; RESP 19
--- NOTE | 2018-09-12 16:02 | PN ---
DATE: 09/12/2018 SUBJECTIVE: Wants to have solid food. No nausea, no vomiting. States that the pain is better. Imp ortant thing is that the stool which was sent yesterday for C. diff, the result is positive C. diff a ntigen. OBJECTIVE: GENERAL: Awake, alert, oriented. VITAL SIGNS: Temperature maximum 98.2 today, heart rate 68, respiration 19, blood pressure 131/77, s aturation 99% on room air. HEART: Regular. LUNGS: Clear. ABDOMEN: Not distended, soft, bowel sounds present but still there is moderate to severe tenderness on deep pressure in the left lower quadrant. EXTREMITIES: Lower extremity negative. LABORATORY DATA: No CBC was sent today, it is not available for today. IMPRESSION: A 63-year-old gentleman admitted with diagnosis of diverticulitis. CT scan was reported as mild diverticulitis, but edema and thickening of the bowel wall after 2 to 3 days being in the ho spital. The patient was started on regular diet and later on he experienced severe pain and leukocyt e count increased to 22,000 and temperature was 101. So, we continued keeping patient n.p.o., only i ce chips. Eventually his stool for Clostridium difficile was sent and the result is back today, it i s positive. The patient already is on vancomycin, Flagyl and other antibiotics per infectious diseas e. So, impression is extensive diverticulitis, diverticulosis of the left colon and sigmoid colon, m ild to moderate diverticulitis of the sigmoid colon and positive stool for Clostridium difficile; the refore, the patient has Clostridium difficile colitis as well. PLAN: Continue with the proper antibiotics IV, keep the patient n.p.o. except ice chips. Dictated By: GRETA FRANCO/TORIBIO Conf#: [id number] DID#: [id number] CC: DACIA CARL;*EndCC*
--- NOTE | 2018-09-12 16:44 | CONS ---
Assessment/Plan Assessment/Plan Assessment/Plan (Daily) Assessment/Plan (Daily) Assessment/Plan Assessment/Plan Assessment/Plan (Daily) IMPRESSION: 1. Abdominal pain secondary to diverticulitis., Or colitis 2. Depression and anxiety. 3. Status post back surgery. 4. Nicotine abuse. 5. Mild transaminitis most probably related to alcoholic liver disease. 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 6. C. difficile colitis Plan Keep patient n.p.o. Continue antibiotic Stat CAT scan of the abdomen and pelvis. Discussed with Dr. Lozada CT scan of the abdomen and pelvis was negative for any perforation or abscess. There was a thickening of the mucosal lining of the sigmoid colon and rectum. Patient is afebrile now WBC has dropped down to 15,000 and is on antibiotic meropenem and Flagyl. Continue vancomycin Full liquid diet Stool for C. difficile has been sent, and will monitor WBC count closely Consultation Date/Type/Reason Admit Date/Time Sep 06, 2018 at 08:38 Initial Consult Date Date/Time of Note DATE: 09/12/18 TIME: 16:43 24 HR Interval Summary Free Text/Dictation Pain is reduced by 80% Constitutional: improved Exam/Review of Systems Exam Vitals Vital Signs Date Temp Pulse Resp B/P (MAP) Pulse Ox O2 O2 Flow FiO2 Time Delivery Rate 09/12/18 98.3 66 19 111/77 98 15:00 (88) 09/11/18 Room Air 14:58 Intake and Output 09/11/18 09/11/18 09/12/18 1515:00 23:00 07:00 IntakeIntake Total 1050 ml 1040 ml BalanceBalance 1050 ml 1040 ml Constitutional: alert, oriented, well developed Psych: no complaints, nl mood/affect Head: normocephalic, atraumatic Eyes: nl conjunctiva, EOMI, nl lids, nl sclera, PERRL ENMT: nl external ears & nose, nl lips & teeth, nl nasal mucosa & septum Neck: supple, non-tender Respiratory: clear to auscultation, normal air movement Cardiovascular: regular rate and rhythm, nl pulses Gastrointestinal: soft, nl liver, spleen, non-tender Musculoskeletal: nl extremities to inspection, nl gait and stance Extremities: normal pulses Neurological: SOLE LAYER II-XII intact, nl mental status, nl speech, nl strength Skin: nl turgor; No rash or lesions Lymph: nl lymph nodes Results Result Diagram: 09/12/18 1111 09/11/18 0656 Results 24hrs Laboratory Tests Test 09/12/18 11:11 White Blood Count 7.8 # Red Blood Count 4.55 L Hemoglobin 13.7 L Hematocrit 40.6 L Mean Corpuscular Volume 89.2 Mean Corpuscular Hemoglobin 30.1 Mean Corpuscular Hemoglobin Concent 33.7 Red Cell Distribution Width 12.7 Platelet Count 306 Mean Platelet Volume 9.7 Immature Granulocytes % 0.400 Neutrophils % 65.0 Lymphocytes % 20.1 Monocytes % 9.8 Eosinophils % 4.2 Basophils % 0.5 Nucleated Red Blood Cells % 0.0 Immature Granulocytes # 0.030 Neutrophils # 5.1 Lymphocytes # 1.6 Monocytes # 0.8 Eosinophils # 0.3 Basophils # 0.0 Nucleated Red Blood Cells # 0.0 Medications Medication Current Medications Morphine Sulfate (morphine) 2 mg Q4H PRN IV SEVERE PAIN LEVEL 7-10 Last administered on 09/12/18 13:25; Admin Dose 2 MG; Start 09/04/18 at 21:30 IV Flush (NS 3 ml) 3 ml PER PROTOCOL IV ; Start 09/05/18 at 09:00 Ondansetron HCl (Zofran Inj) 4 mg Q6H PRN IV NAUSEA/VOMITING Last administered on 09/08/18at 12:51; Admin Dose 4 MG; Start 09/05/18 at 09:00 Albuterol/ Ipratropium (Duoneb) 3 ml Q2H RESP THERAPY PRN HHN SHORTNESS OF BREATH; Start 09/05/18 at 09:00 Famotidine (Pepcid Iv) 20 mg BID IV Last administered on 09/12/18at 09:04; Admin Dose 20 MG; Start 09/07/18 at 09:00 Meropenem/Sodium Chloride 50 ml @ 100 mls/hr Q8 IVPB Last administered on 09/12/18at 15:03; Admin Dose 100 MLS/HR; Start 09/07/18 at 14:30 Metronidazole 100 ml @ 100 mls/hr Q8 IVPB Last administered on 09/12/18at 13:19; Admin Dose 100 MLS/HR; Start 09/09/18 at 14:00 Acetaminophen (Tylenol Tab) 650 mg Q8 PRN PO MILD PAIN(1-3)OR ELEVATED TEMP Last administered on 09/10/18 02:15; Admin Dose 650 MG; Start 09/09/18 at 23:00 Potassium Chloride/Dextrose/ Sod Cl 1,000 ml @ 125 mls/hr Q8H IV Last administered on 09/12/18 09:11; Admin Dose 125 MLS/HR; Start 09/10/18 at 12:30 Vancomycin HCl (Vancomycin Oral Syringe) 250 mg Q6 PO Last administered on 09/12at 11:33; Admin Dose 250 MG; Start 09/11/18 at 18:00 OSCAR WILSON MD Sep 12, 2018 16:44
[2018-09-12 19:49] VITALS: BP 115/73; PULSE 67; RESP 18
[2018-09-13 01:11] VITALS: BP 124/80; PULSE 63; RESP 18
[2018-09-13] MEDS: morphine 2 MG INJ IV PRN ×2 (03:16→08:18)
[2018-09-13] MEDS: VANCOMYCIN HCL 250 MG/5ML POSYG PO SCH ×3 (05:35→18:01)
[2018-09-13] MEDS: MEROPENEM 1 GM/50ML(PMX) 50 ML IVPB SCH ×4 (05:36→22:39)
[2018-09-13] MEDS: metroNIDAZOLE 500 MG/NS (PMX) 100 ML IVPB SCH ×4 (06:21→22:39)
--- NOTE | 2018-09-13 07:27 | CONS ---
Assessment/Plan Assessment/Plan Hospital Course (Demo Recall) 63 yo male WBC wnl. Mild pain in LLQ. Last bm was yesterday am, and was soft, no diarrhea. No nausea. Wants a cigarette and regular diet. 1. Abdominal pain secondary C diff colitis and diverticulitis 2. Colonic diverticulosis 3. Depression and anxiety. 4. Status post back surgery. 5. Nicotine abuse. 6. Mild transaminitis most probably related to alcoholic liver disease. 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 7. C. difficile colitis Plan Continue antibiotic, meropenem and Flagyl and vancomycin Continue with full liquid diet, hold off on advancing diet until LLQ pain resolved Nicotine cessation prn anti emetics Pt examined and plan of care d/w Dr. Simon Consultation Date/Type/Reason Admit Date/Time Sep 06, 2018 at 08:38 Initial Consult Date Date/Time of Note DATE: 09/13/18 TIME: 07:24 Exam/Review of Systems Exam Vitals Vital Signs Date Temp Pulse Resp B/P (MAP) Pulse Ox O2 O2 Flow FiO2 Time Delivery Rate 09/13/18 98.2 63 18 124/80 97 01:11 (95) 09/11/18 Room Air 14:58 Intake and Output 09/12/18 09/12/18 09/13/18 1515:00 23:00 07:00 IntakeIntake Total 460 ml 1620 ml 972 ml BalanceBalance 460 ml 1620 ml 972 ml Constitutional: alert, oriented Psych: no complaints Head: normocephalic Eyes: nl sclera, PERRL Respiratory: normal air movement Cardiovascular: regular rate and rhythm Gastrointestinal: soft, tender Musculoskeletal: nl gait and stance Neurological: nl mental status Results Result Diagram: 09/13/18 0531 09/11/18 0656 Results 24hrs Laboratory Tests Test 09/12/18 11:11 09/13/18 05:31 White Blood Count 7.8 # 7.1 Red Blood Count 4.55 L 5.20 Hemoglobin 13.7 L 15.3 Hematocrit 40.6 L 46.5 Mean Corpuscular Volume 89.2 89.4 Mean Corpuscular Hemoglobin 30.1 29.4 Mean Corpuscular Hemoglobin Concent 33.7 32.9 Red Cell Distribution Width 12.7 12.5 Platelet Count 306 280 Mean Platelet Volume 9.7 11.0 H Immature Granulocytes % 0.400 0.400 Neutrophils % 65.0 50.5 Lymphocytes % 20.1 30.7 Monocytes % 9.8 11.7 H Eosinophils % 4.2 6.1 Basophils % 0.5 0.6 Nucleated Red Blood Cells % 0.0 0.0 Immature Granulocytes # 0.030 0.030 Neutrophils # 5.1 3.6 Lymphocytes # 1.6 2.2 Monocytes # 0.8 0.8 Eosinophils # 0.3 0.4 Basophils # 0.0 0.0 Nucleated Red Blood Cells # 0.0 0.0 Medications Medication Current Medications Morphine Sulfate (morphine) 2 mg Q4H PRN IV SEVERE PAIN LEVEL 7-10 Last administered on 09/13/18 03:16; Admin Dose 2 MG; Start 09/04/18 at 21:30 IV Flush (NS 3 ml) 3 ml PER PROTOCOL IV ; Start 09/05/18 at 09:00 Ondansetron HCl (Zofran Inj) 4 mg Q6H PRN IV NAUSEA/VOMITING Last administered on 09/08/18at 12:51; Admin Dose 4 MG; Start 09/05/18 at 09:00 Albuterol/ Ipratropium (Duoneb) 3 ml Q2H RESP THERAPY PRN HHN SHORTNESS OF BREATH; Start 09/05/18 at 09:00 Famotidine (Pepcid Iv) 20 mg BID IV Last administered on 09/12/18at 21:42; Admin Dose 20 MG; Start 09/07/18 at 09:00 Meropenem/Sodium Chloride 50 ml @ 100 mls/hr Q8 IVPB Last administered on 09/13/18at 05:36; Admin Dose 100 MLS/HR; Start 09/07/18 at 14:30 Metronidazole 100 ml @ 100 mls/hr Q8 IVPB Last administered on 09/13/18 06:21; Admin Dose 100 MLS/HR; Start 09/09/18 at 14:00 Acetaminophen (Tylenol Tab) 650 mg Q8 PRN PO MILD PAIN(1-3)OR ELEVATED TEMP Last administered on 09/10/18at 02:15; Admin Dose 650 MG; Start 09/09/18 at 23:00 Potassium Chloride/Dextrose/ Sod Cl 1,000 ml @ 70 mls/hr [id number] IV Last administered on 09/12/18at 20:05; Admin Dose 125 MLS/HR; Start 09/10/18 at 12:30; Stop 09/13/18 at 11:05 Vancomycin HCl (Vancomycin Oral Syringe) 250 mg Q6 PO Last administered on 09/13/18at 05:35; Admin Dose 250 MG; Start 09/11/18 at 18:00 MARGARITA CAMPO Sep 13, 2018 07:26
[2018-09-13 08:02] VITALS: BP 120/80; PULSE 80; RESP 20
[2018-09-13] MEDS: D5W-0.45 NACL + KCL 20 MEQ 1,000 ML IV SCH (08:13)
[2018-09-13] MEDS: FAMOTIDINE 20 MG INJ IV SCH ×2 (08:15→22:39)
--- NOTE | 2018-09-13 12:18 | PN ---
Date/Time of Note Date/Time of Note DATE: 09/13/18 TIME: 12:15 Assessment/Plan VTE Prophylaxis Risk [place] [facility] [place] risk: 2 SCD applied (from [facility] [place]): Yes Pharmacological prophylaxis: NA/contraindicated Pharm contraindication: blood coag disorder Lines/Catheters IV C[facility]ter Type (from [facility]): Peripheral IV Assessment/Plan Hospital Course Patient continues on full liquid diet until lower abdominal pain resolves per general surgery recommendations. Assessment/Plan -Proximal and left colon diverticulitis, continue meropenem. Dr Geller is following in ID consultation. Dr Simon is following in GI consultation. Dr Lozada is following in general surgery consultation. -C. difficile colitis, patient is continued on Flagyl and vancomycin. -Hypertension, pressure is within normal limits. -History of multiple surgeries on cervical and lumbar spine -Tobacco dependence, cessation strongly advised, continue nicotine patch -History of IV drug use Further recommendations based on clinical course. Plan of care discussed with Dr. Wheatley. Result Diagram: 09/13/18 0531 09/11/18 0656 Results 24hrs Laboratory Tests Test 09/13/18 05:31 White Blood Count 7.1 Red Blood Count 5.20 Hemoglobin 15.3 Hematocrit 46.5 Mean Corpuscular Volume 89.4 Mean Corpuscular Hemoglobin 29.4 Mean Corpuscular Hemoglobin Concent 32.9 Red Cell Distribution Width 12.5 Platelet Count 280 Mean Platelet Volume 11.0 H Immature Granulocytes % 0.400 Neutrophils % 50.5 Lymphocytes % 30.7 Monocytes % 11.7 H Eosinophils % 6.1 Basophils % 0.6 Nucleated Red Blood Cells % 0.0 Immature Granulocytes # 0.030 Neutrophils # 3.6 Lymphocytes # 2.2 Monocytes # 0.8 Eosinophils # 0.4 Basophils # 0.0 Nucleated Red Blood Cells # 0.0 Erythrocyte Sedimentation Rate 20 Exam/Review of Systems Exam Vitals Vital Signs Date Temp Pulse Resp B/P (MAP) Pulse Ox O2 O2 Flow FiO2 Time Delivery Rate 09/13/18 97.5 80 20 120/80 98 Room Air 08:02 (93) Intake and Output 09/12/18 09/12/18 09/13/18 1515:00 23:00 07:00 IntakeIntake Total 460 ml 1620 ml 972 ml BalanceBalance 460 ml 1620 ml 972 ml Exam Constitutional: alert, oriented Head: normocephalic Respiratory: clear to auscultation Cardiovascular: nl pulses Gastrointestinal: soft, tender Extremities: normal pulses Neurological: nl mental status Skin: nl turgor Results Results 24hrs Laboratory Tests Test 09/13/18 05:31 White Blood Count 7.1 Red Blood Count 5.20 Hemoglobin 15.3 Hematocrit 46.5 Mean Corpuscular Volume 89.4 Mean Corpuscular Hemoglobin 29.4 Mean Corpuscular Hemoglobin Concent 32.9 Red Cell Distribution Width 12.5 Platelet Count 280 Mean Platelet Volume 11.0 H Immature Granulocytes % 0.400 Neutrophils % 50.5 Lymphocytes % 30.7 Monocytes % 11.7 H Eosinophils % 6.1 Basophils % 0.6 Nucleated Red Blood Cells % 0.0 Immature Granulocytes # 0.030 Neutrophils # 3.6 Lymphocytes # 2.2 Monocytes # 0.8 Eosinophils # 0.4 Basophils # 0.0 Nucleated Red Blood Cells # 0.0 Erythrocyte Sedimentation Rate 20 Medications Medication Current Medications Morphine Sulfate (morphine) 2 mg Q4H PRN IV SEVERE PAIN LEVEL 7-10 Last administered on 09/13/18at 08:18; Admin Dose 2 MG; Start 09/04/18 at 21:30 IV Flush (NS 3 ml) 3 ml PER PROTOCOL IV ; Start 09/05/18 at 09:00 Ondansetron HCl (Zofran Inj) 4 mg Q6H PRN IV NAUSEA/VOMITING Last administered on 09/08/18at 12:51; Admin Dose 4 MG; Start 09/05/18 at 09:00 Albuterol/ Ipratropium (Duoneb) 3 ml Q2H RESP THERAPY PRN HHN SHORTNESS OF BREATH; Start 09/05/18 at 09:00 Famotidine (Pepcid Iv) 20 mg BID IV Last administered on 09/13/18at 08:15; Admin Dose 20 MG; Start 09/07/18 at 09:00 Meropenem/Sodium Chloride 50 ml @ 100 mls/hr Q8 IVPB Last administered on 09/13/18at 05:36; Admin Dose 100 MLS/HR; Start 09/07/18 at 14:30 Metronidazole 100 ml @ 100 mls/hr Q8 IVPB Last administered on 09/13/18at 06:21; Admin Dose 100 MLS/HR; Start 6/27/19 at 14:00 Acetaminophen (Tylenol Tab) 650 mg Q8 PRN PO MILD PAIN(1-3)OR ELEVATED TEMP Last administered on 09/10/18at 02:15; Admin Dose 650 MG; Start 09/09/18 at 23:00 Vancomycin HCl (Vancomycin Oral Syringe) 250 mg Q6 PO Last administered on 09/13/18at 05:35; Admin Dose 250 MG; Start 09/11/18 at 18:00 AYESHA HAWKINS Sep 13, 2018 12:18
--- NOTE | 2018-09-13 14:21 | CONS ---
Assessment/Plan Assessment/Plan Hospital Course (Demo Recall) Awake, still w abdominal pain, no fevers over night Antimicrobials: Flagyl meropenem Allergies: Penicillin, Cipro, Levaquin Physical examination: Well-developed well-nourished elderly white male who is alert in no distress. Head atraumatic normocephalic neck is supple chest rise symmetrical breath sounds clear. Abdomen soft bowel sounds present. Extremities without cyanosis. Assessment: 1. SIRS 1. Ongoing diverticulitis of the proximal sigmoid colon 2. Ongoing diarrhea rule out C. difficile 3. History of IV drug use 4. History of multiple spinal surgeries Plan: Stable, continue antibiotics and follow surgical recommendations, started on clears Consultation Date/Type/Reason Admit Date/Time Sep 06, 2018 at 08:38 Initial Consult Date Type of Consult id Date/Time of Note DATE: 09/13/18 TIME: 14:20 Exam/Review of Systems Exam Vitals Vital Signs Date Temp Pulse Resp B/P (MAP) Pulse Ox O2 O2 Flow FiO2 Time Delivery Rate 09/13/18 97.5 80 20 120/80 98 Room Air 08:02 (93) Intake and Output 09/12/18 09/12/18 09/13/18 1515:00 23:00 07:00 IntakeIntake Total 460 ml 1620 ml 972 ml BalanceBalance 460 ml 1620 ml 972 ml Results Result Diagram: 09/13/18 0531 09/11/18 0656 Results 24hrs Laboratory Tests Test 09/13/18 05:31 White Blood Count 7.1 Red Blood Count 5.20 Hemoglobin 15.3 Hematocrit 46.5 Mean Corpuscular Volume 89.4 Mean Corpuscular Hemoglobin 29.4 Mean Corpuscular Hemoglobin Concent 32.9 Red Cell Distribution Width 12.5 Platelet Count 280 Mean Platelet Volume 11.0 H Immature Granulocytes % 0.400 Neutrophils % 50.5 Lymphocytes % 30.7 Monocytes % 11.7 H Eosinophils % 6.1 Basophils % 0.6 Nucleated Red Blood Cells % 0.0 Immature Granulocytes # 0.030 Neutrophils # 3.6 Lymphocytes # 2.2 Monocytes # 0.8 Eosinophils # 0.4 Basophils # 0.0 Nucleated Red Blood Cells # 0.0 Erythrocyte Sedimentation Rate 20 Medications Medication Current Medications Morphine Sulfate (morphine) 2 mg Q4H PRN IV SEVERE PAIN LEVEL 7-10 Last administered on 09/13/18 08:18; Admin Dose 2 MG; Start 09/04/18 at 21:30 IV Flush (NS 3 ml) 3 ml PER PROTOCOL IV ; Start 09/05/18 at 09:00 Ondansetron HCl (Zofran Inj) 4 mg Q6H PRN IV NAUSEA/VOMITING Last administered on 09/08/18 12:51; Admin Dose 4 MG; Start 09/05/18 at 09:00 Albuterol/ Ipratropium (Duoneb) 3 ml Q2H RESP THERAPY PRN HHN SHORTNESS OF BREATH; Start 09/05/18 at 09:00 Famotidine (Pepcid Iv) 20 mg BID IV Last administered on 09/13/18 08:15; Admin Dose 20 MG; Start 09/07/18 at 09:00 Meropenem/Sodium Chloride 50 ml @ 100 mls/hr Q8 IVPB Last administered on 09/13/18 05:36; Admin Dose 100 MLS/HR; Start 09/07/18 at 14:30 Metronidazole 100 ml @ 100 mls/hr Q8 IVPB Last administered on 09/13/18 06:21; Admin Dose 100 MLS/HR; Start 09/09/18 at 14:00 Acetaminophen (Tylenol Tab) 650 mg Q8 PRN PO MILD PAIN(1-3)OR ELEVATED TEMP Last administered on 09/10/18 02:15; Admin Dose 650 MG; Start 09/09/18 at 23:00 Vancomycin HCl (Vancomycin Oral Syringe) 250 mg Q6 PO Last administered on 09/13/18 12:53; Admin Dose 250 MG; Start 09/11/18 at 18:00 MINERVA GARCIA NP Sep 13, 2018 14:21
[2018-09-13 14:50] VITALS: BP 113/67; PULSE 64; RESP 20
--- NOTE | 2018-09-13 15:33 | PN ---
DATE: 09/13/2018 SUBJECTIVE: No nausea, no vomiting. States that the pain is much better. Has tolerated full liquid diet so far. OBJECTIVE: GENERAL: Awake, alert, oriented. VITAL SIGNS: Temperature maximum today 98.2, heart rate 80. Respiration 20, blood pressure 120/80, saturation 98% room air. LABORATORY: WBC 7100 with 50% segmented. Hemoglobin 15.3, hematocrit 46.5. Chemistry not done toda y. No bowel movement has been recorded here for today. CLINICAL EXAM: HEART: Regular. LUNGS: Clear. ABDOMEN: Soft, still there is more localized left lower quadrant deep tenderness. There is no guard ing, no rigidity. Minimal voluntary guarding on the left lower quadrant. ASSESSMENT AND PLAN: A 63-year-old gentleman who was admitted with impression of sigmoid diverticuli tis, mild with fat stranding, but later patient, even though at the beginning did not have leukocytos is and fever, later on patient developed more temperature and leukocytosis up to 2000 and fever of 10 1. We sent stool for C. diff which happened to be positive. Therefore, patient is being treated wit h diagnosis of Clostridium difficile colitis, mainly sigmoid colon and rectum. From surgical point o f view, we advised that the patient be kept on liquid diet, but appears that some colleagues have aga in advanced the diet to soft diet. We prefer that the patient be kept on at most full liquid for a c ouple of more days at least. I will talk to GI colleagues. Dictated By: GRETA FRANCO/NTS Conf#: [id number] DID#: [id number] CC: DACIA CARL;*EndMI*
[2018-09-13 20:28] VITALS: BP 135/79; PULSE 66; RESP 18
[2018-09-14 01:41] VITALS: BP 136/82; PULSE 63; RESP 18
[2018-09-14] MEDS: morphine 2 MG INJ IV PRN ×2 (04:03→14:52)
[2018-09-14] MEDS: VANCOMYCIN HCL 250 MG/5ML POSYG PO SCH ×3 (06:03→13:19)
[2018-09-14] MEDS: MEROPENEM 1 GM/50ML(PMX) 50 ML IVPB SCH ×2 (06:05→13:28)
[2018-09-14] MEDS: metroNIDAZOLE 500 MG/NS (PMX) 100 ML IVPB SCH ×2 (06:06→13:19)
[2018-09-14 07:50] VITALS: BP 131/80; PULSE 76; RESP 18
--- NOTE | 2018-09-14 08:32 | CONS ---
Assessment/Plan Assessment/Plan Hospital Course (Demo Recall) 63 yo male 1. Abdominal pain secondary C diff colitis and diverticulitis -improved 2. Colonic diverticulosis 3. Depression and anxiety. 4. Status post back surgery. 5. Nicotine abuse. 6. Mild transaminitis most probably related to alcoholic liver disease. 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 -improved 7. C. difficile colitis Plan Continue antibiotic, meropenem and Flagyl and vancomycin Continue with full liquid diet Nicotine cessation prn anti emetics Pt examined and plan of care d/w Dr. Simon Consultation Date/Type/Reason Admit Date/Time Sep 06, 2018 at 08:38 Initial Consult Date Date/Time of Note DATE: 09/14/18 TIME: 08:29 24 HR Interval Summary Free Text/Dictation abd pain improved. NO n/v. Diarrhea once overnight. Exam/Review of Systems Exam Vitals Vital Signs Date Temp Pulse Resp B/P (MAP) Pulse Ox O2 O2 Flow FiO2 Time Delivery Rate 09/14/18 98.0 76 18 131/80 97 07:50 (97) 09/13/18 Room Air 14:50 Intake and Output 09/13/18 09/13/18 09/14/18 1515:00 23:00 07:00 IntakeIntake Total 1160 ml 510 ml 300 ml BalanceBalance 1160 ml 510 ml 300 ml Constitutional: alert, oriented Psych: no complaints Head: normocephalic Eyes: nl sclera, PERRL Respiratory: normal air movement Cardiovascular: regular rate and rhythm Gastrointestinal: soft, tender Musculoskeletal: nl gait and stance Extremities: normal pulses Neurological: nl mental status Results Result Diagram: 09/13/18 0531 09/11/18 0656 Medications Medication Current Medications Morphine Sulfate (morphine) 2 mg Q4H PRN IV SEVERE PAIN LEVEL 7-10 Last administered on 09/14/18at 04:03; Admin Dose 2 MG; Start 09/04/18 at 21:30 IV Flush (NS 3 ml) 3 ml PER PROTOCOL IV ; Start 09/05/18 at 09:00 Ondansetron HCl (Zofran Inj) 4 mg Q6H PRN IV NAUSEA/VOMITING Last administered on 09/08/18at 12:51; Admin Dose 4 MG; Start 09/05/18 at 09:00 Albuterol/ Ipratropium (Duoneb) 3 ml Q2H RESP THERAPY PRN HHN SHORTNESS OF BREATH; Start 09/05/18 at 09:00 Famotidine (Pepcid Iv) 20 mg BID IV Last administered on 09/13/18at 22:39; Admin Dose 20 MG; Start 09/07/18 at 09:00 Meropenem/Sodium Chloride 50 ml @ 100 mls/hr Q8 IVPB Last administered on 09/14/18 06:05; Admin Dose 100 MLS/HR; Start 09/07/18 at 14:30 Metronidazole 100 ml @ 100 mls/hr Q8 IVPB Last administered on 09/14/18 06:06; Admin Dose 100 MLS/HR; Start 09/09/18 at 14:00 Acetaminophen (Tylenol Tab) 650 mg Q8 PRN PO MILD PAIN(1-3)OR ELEVATED TEMP Last administered on 09/10/18 02:15; Admin Dose 650 MG; Start 09/09/18 at 23:00 Vancomycin HCl (Vancomycin Oral Syringe) 250 mg Q6 PO Last administered on 09/14/18 06:03; Admin Dose 250 MG; Start 09/11/18 at 18:00 MARGARITA CAMPO Sep 14, 2018 08:32
[2018-09-14] MEDS: FAMOTIDINE 20 MG INJ IV SCH (08:46)
--- NOTE | 2018-09-14 11:09 | CONS ---
Assessment/Plan Assessment/Plan Hospital Course (Demo Recall) All noted, no events Antimicrobials: Flagyl meropenem Allergies: Penicillin, Cipro, Levaquin Physical examination: Well-developed well-nourished elderly white male who is alert in no distress. Head atraumatic normocephalic neck is supple chest rise symmetrical breath sounds clear. Abdomen soft bowel sounds present. Extremities without cyanosis. Assessment: 1. SIRS 1. Ongoing diverticulitis of the proximal sigmoid colon 2. C. difficile colitis 3. History of IV drug use 4. History of multiple spinal surgeries Plan: Stable, change Merrem to Invanz, continue Flagyl, f/u surgical rec-s Consultation Date/Type/Reason Admit Date/Time Sep 06, 2018 at 08:38 Initial Consult Date Type of Consult id Date/Time of Note DATE: 09/14/18 TIME: 11:08 Exam/Review of Systems Exam Vitals Vital Signs Date Temp Pulse Resp B/P (MAP) Pulse Ox O2 O2 Flow FiO2 Time Delivery Rate 09/14/18 98.0 76 18 131/80 97 07:50 (97) 09/13/18 Room Air 14:50 Intake and Output 09/13/18 09/13/18 09/14/18 1515:00 23:00 07:00 IntakeIntake Total 1160 ml 510 ml 300 ml BalanceBalance 1160 ml 510 ml 300 ml Results Result Diagram: 09/14/18 0922 09/14/18 0922 Results 24hrs Laboratory Tests Test 09/14/18 09:22 White Blood Count 7.9 Red Blood Count 5.14 Hemoglobin 15.2 Hematocrit 45.3 Mean Corpuscular Volume 88.1 Mean Corpuscular Hemoglobin 29.6 Mean Corpuscular Hemoglobin Concent 33.6 Red Cell Distribution Width 12.7 Platelet Count 395 # Mean Platelet Volume 9.7 Immature Granulocytes % 0.400 Neutrophils % 60.0 Lymphocytes % 24.8 Monocytes % 9.9 Eosinophils % 4.1 Basophils % 0.8 Nucleated Red Blood Cells % 0.0 Immature Granulocytes # 0.030 Neutrophils # 4.7 Lymphocytes # 2.0 Monocytes # 0.8 Eosinophils # 0.3 Basophils # 0.1 Nucleated Red Blood Cells # 0.0 Sodium Level 144 Potassium Level 4.3 Chloride Level 105 Carbon Dioxide Level 27 Anion Gap 12 Blood Urea Nitrogen 11 Creatinine 0.70 Est Glomerular Filtrat Rate mL/min > 60 Glucose Level 146 Calcium Level 9.1 Total Bilirubin 0.5 Direct Bilirubin 0.00 Indirect Bilirubin 0.5 Aspartate Amino Transf (AST/SGOT) 67 H Alanine Aminotransferase (ALT/SGPT) 59 Alkaline Phosphatase 69 Total Protein 7.6 Albumin 4.0 Globulin 3.60 H Albumin/Globulin Ratio 1.11 Medications Medication Current Medications Morphine Sulfate (morphine) 2 mg Q4H PRN IV SEVERE PAIN LEVEL 7-10 Last administered on 09/14/18 04:03; Admin Dose 2 MG; Start 09/04/18 at 21:30 IV Flush (NS 3 ml) 3 ml PER PROTOCOL IV ; Start 09/05/18 at 09:00 Ondansetron HCl (Zofran Inj) 4 mg Q6H PRN IV NAUSEA/VOMITING Last administered on 09/08/18 12:51; Admin Dose 4 MG; Start 09/05/18 at 09:00 Albuterol/ Ipratropium (Duoneb) 3 ml Q2H RESP THERAPY PRN HHN SHORTNESS OF BREATH; Start 09/05/18 at 09:00 Famotidine (Pepcid Iv) 20 mg BID IV Last administered on 09/14/18 08:46; Admin Dose 20 MG; Start 09/07/18 at 09:00 Meropenem/Sodium Chloride 50 ml @ 100 mls/hr Q8 IVPB Last administered on 09/14/18 06:05; Admin Dose 100 MLS/HR; Start 09/07/18 at 14:30 Metronidazole 100 ml @ 100 mls/hr Q8 IVPB Last administered on 09/14/18 06:06; Admin Dose 100 MLS/HR; Start 09/09/18 at 14:00 Acetaminophen (Tylenol Tab) 650 mg Q8 PRN PO MILD PAIN(1-3)OR ELEVATED TEMP Last administered on 09/10/18 02:15; Admin Dose 650 MG; Start 09/09/18 at 23:00 Vancomycin HCl (Vancomycin Oral Syringe) 250 mg Q6 PO Last administered on 09/14/18 06:03; Admin Dose 250 MG; Start 09/11/18 at 18:00 MINERVA GARCIA NP Sep 14, 2018 11:09
[2018-09-14] MEDS ORDERED: ERTAPENEM SODIUM 1 GM in SOD CHLORIDE 0.9% 100 ML IVPB SCH (14:00)
[2018-09-14 14:12] VITALS: BP 132/80; PULSE 69; RESP 18
--- NOTE | 2018-09-14 23:24 | DS ---
Date/Time of Note Date/Time of Note DATE: 09/14/18 TIME: 23:23 Discharge Summary Admission/Discharge Info Admit Date/Time Sep 06, 2018 at 08:38 Discharge Date/Time Sep 14, 2018 at 15:35 Hx of Present Illness This is a 61-year-old male with a history of hypertension, depression/anxiety, spinal, abdominal and shoulder surgery. Patient initially presented on outside hospital complaining of abdominal pain and diarrhea. Symptoms been going on for the past 2 weeks. He was treated with Cipro but symptoms persisted. CT abdomen pelvis at the outside facility shows left colon and proximal sigmoid diverticulitis without perforation. Patient was transferred to [facility] for insurance reason. Hospital Course Pt left AMA -Proximal and left colon diverticulitis, continue meropenem. Dr Geller is following in ID consultation. Dr Simon is following in GI consultation. Dr Lozada is following in general surgery consultation. -C. difficile colitis, patient is continued on Flagyl and vancomycin. -Hypertension, pressure is within normal limits. -History of multiple surgeries on cervical and lumbar spine -Tobacco dependence, cessation strongly advised, continue nicotine patch -History of IV drug use Plan of care discussed with Dr. Wheatley. Home Meds Reported Medications Metoprolol Tartrate* (Lopressor*) 50 Mg Tab, 50 MG PO BID, #60 TAB 03/07/18 Losartan Potassium* (Losartan Potassium*) 100 Mg Tablet, 100 MG PO DAILY, TAB 03/07/18 Amlodipine Besylate* (Norvasc*) 10 Mg Tablet, 10 MG PO DAILY, TAB 03/07/18 Primary Care Provider [facility] Pending Labs Laboratory Tests Test 09/14/18 09:22 White Blood Count 7.9 10^3/ul (4.8-10.8) Red Blood Count 5.14 10^6/ul (4.70-6.10) Hemoglobin 15.2 g/dl (14.0-18.0) Hematocrit 45.3 % (42.0-52.0) Mean Corpuscular Volume 88.1 fl (82.0-101.0) Mean Corpuscular Hemoglobin 29.6 pg (29.0-33.0) Mean Corpuscular Hemoglobin Concent 33.6 g/dl (32.0-37.0) Red Cell Distribution Width 12.7 % (11.5-14.5) Platelet Count 395 10^3/UL (140-415) Mean Platelet Volume 9.7 fl (7.4-10.4) Immature Granulocytes % 0.400 % (0.001-0.429) Neutrophils % 60.0 % (39.0-77.0) Lymphocytes % 24.8 % (15.0-51.0) Monocytes % 9.9 % (0.0-11.0) Eosinophils % 4.1 % (0.0-7.0) Basophils % 0.8 % (0.0-2.0) Nucleated Red Blood Cells % 0.0 /100WBC (0.0-0.0) Immature Granulocytes # 0.030 10^3/ul (0.0-0.031) Neutrophils # 4.7 10^3/ul (1.6-7.5) Lymphocytes # 2.0 10^3/ul (0.8-2.9) Monocytes # 0.8 10^3/ul (0.3-0.9) Eosinophils # 0.3 10^3/ul (0.0-0.5) Basophils # 0.1 10^3/ul (0.0-0.1) Nucleated Red Blood Cells # 0.0 10^3/ul (0.0-0.0) Sodium Level 144 mmol/L (135-144) Potassium Level 4.3 mmol/L (3.5-5.1) Chloride Level 105 mmol/L (97-110) Carbon Dioxide Level 27 mmol/L (21-31) Anion Gap 12 (5-13) Blood Urea Nitrogen 11 mg/dl (7-20) Creatinine 0.70 mg/dl (0.61-1.24) Est Glomerular Filtrat Rate mL/min > 60 mL/min (>60) Glucose Level 146 mg/dl (70-220) Calcium Level 9.1 mg/dl (8.4-10.2) Total Bilirubin 0.5 mg/dl (0.2-1.3) Direct Bilirubin 0.00 mg/dl (0.00-0.20) Indirect Bilirubin 0.5 mg/dl (0-1.1) Aspartate Amino Transf (AST/SGOT) 67 IU/L (15-46) Alanine Aminotransferase (ALT/SGPT) 59 IU/L (13-69) Alkaline Phosphatase 69 IU/L (42-121) Total Protein 7.6 g/dl (6.1-8.1) Albumin 4.0 g/dl (3.3-4.9) Globulin 3.60 g/dl (1.3-3.2) Albumin/Globulin Ratio 1.11 AYESHA HAWKINS Sep 14, 2018 23:24
--- NOTE | 2018-09-15 06:18 | PN ---
DATE: 09/14/2018 SUBJECTIVE: Patient is very upset. He wants to go out of his room and walk around. He wants to smoke, states he has not been smoking for 13 days. He is very anxious and upset about this. As you know, he has Clostridium difficile colitis and proctitis. No nausea, no vomiting. Stool is soft.it is not very formed, but is not watery. Abdominal pain is very minimal. OBJECTIVE: GENERAL: Awake, alert, oriented, anxious. VITAL SIGNS: Temperature is 97-98, heart rate 76, _oxygen Saturation 97% room air. LABORATORY DATA: WBC 10,900 with 60% segmented. Chemistry slight elevation of AST. HEART: Regular. . ABDOMEN: Soft, very mild tenderness on deep pressure in R.L.Q. ASSESSMENT AND PLAN: The patient is stable on full liquid diet. He is of course very anxious to eat and to go home. He is on antibiotic for C. diff. treatment. PLAN: As of Thursday morning, we are going to advance diet to soft diet. Dictated By: GRETA JORGENSEN MD PS/NTS Conf#: [id number] DID#: [id number] CC: DACIA CARL;*Gabriela* MTDD
== END 2018-09-14 15:35 | disposition left against medical advice (07) | DRG 392 ==
LOC: 2NE 21:00 → INTOOBSV 21:00 → OBSVTOIN 09-06 08:38
PROVIDERS: ADMIT Hospitalist; ATTEND Internal Medicine
DX: K57.32 Diverticulitis of large intestine without perforation or abscess without bleeding (principal); A04.72 Enterocolitis due to Clostridium difficile, not specified as recurrent; I10 Essential (primary) hypertension; Z72.0 Tobacco use; F32.9 Major depressive disorder, single episode, unspecified; F41.9 Anxiety disorder, unspecified
CPT/HCPCS: 71045; 74178; 80048; 80053; 83735; 84100; 85025; 85610; 85651; 85730; 87045; 87075; 87086; C9113; G0378; J0744; J1335; J2185; J2270; J2405; J3480; J7042; Q9967

== ENCOUNTER 2018-09-14 17:00 | Inpatient (IN) | payer OTHER ==
[~2018-09-14] VITALS: Ht 177.8 cm; Wt 79.4 kg
--- NOTE | 2018-09-14 19:31 | ERD ---
ER Documentation Chief Complaint Chief Complaint AP w/ vomiting, left AMA from [facility], dx diverticulitis HPI This is a 63-year-old man left AGAINST MEDICAL ADVICE this afternoon from [facility] after being admitted for acute diverticulitis. He supposed to be using vancomycin daily and per records was possibly going to undergo colonoscopy if his symptoms continue, although he has not received a colonoscopy yet. Patient does not give a reason for leaving AGAINST MEDICAL ADVICE but states after a few blocks he had to stop and return here because of the pain. ROS All systems reviewed and are negative except as per history of present illness. Medications Home Meds Reported Medications Metoprolol Tartrate* (Lopressor*) 50 Mg Tab, 50 MG PO BID, #60 TAB 03/07/18 Losartan Potassium* (Losartan Potassium*) 100 Mg Tablet, 100 MG PO DAILY, TAB 03/07/18 Amlodipine Besylate* (Norvasc*) 10 Mg Tablet, 10 MG PO DAILY, TAB 03/07/18 Allergies Allergies: Coded Allergies: ciprofloxacin (Verified Allergy, Mild, Rashes, itching, 09/05/18) levofloxacin (Verified Allergy, Mild, Rash, 02/28/18) penicillin G (Verified Allergy, Unknown, 02/28/18) rash codeine (Verified Adverse Reaction, Mild, GI UPSET, 02/28/18) nausea PMhx/Soc Diverticulitis, C. difficile positive, history of IV drug abuse, spinal surgeries, hypertension, depression, anxiety History of Surgery: Yes (spinal fusion sx, neck sx w/pins, lumbar, hardware L shoulder, abdominal sx) Anesthesia Reaction: No Hx Neurological Disorder: Yes (spinal surgery, ) Hx Respiratory Disorders: No Hx Cardiac Disorders: No Hx Psychiatric Problems: Yes (anxiety, depression) Hx Miscellaneous Medical Probl: No Hx Alcohol Use: No Hx Substance Use: No Hx Tobacco Use: Yes FmHx Family History: No diabetes Physical Exam Vitals Vital Signs Date Temp Pulse Resp B/P (MAP) Pulse Ox O2 O2 Flow FiO2 Time Delivery Rate 09/14/18 81 14 136/82 100 Room Air 19:22 (100) 09/14/18 98.0 72 16 114/73 100 17:02 (87) Physical Exam GENERAL: Well-developed, well-nourished, moderate discomfort, afebrile CARDIAC: Regular rate and rhythm, no murmurs rubs or gallops LUNGS: Clear bilaterally no wheezing crackles or stridor ABDOMEN: Mild tenderness diffusely over the abdomen, no guarding, rigidity, or masses EXTREMITIES: No clubbing cyanosis or edema, calves are bilaterally symmetrical, no Homans sign, no popliteal cord sign. Distal pulses equal and bilateral PSYCH: Normal affect without agitation or irritability Result Diagram: 09/14/18193109/14/181947 Procedures/MDM IV line was established patient was placed on shelter monitor rhythm strip revealed a sinus rhythm at about 80 bpm with upright P and T waves. Patient was afebrile I administered 1 L lactated Ringer's IV x1 CBC and electrolytes were within normal limits, liver function tests unremark able, ethanol level negative. Urine drug screen and urinalysis also ordered results are pending I will follow-up. Patient admitted to [facility] for continued IV management and possible GI consultation Departure Diagnosis: Primary Impression: Acute diverticulitis Condition: ELISHA Gonsales MD Sep 14, 2018 19:31
[2018-09-14] MEDS ORDERED: LACTATED RINGER'S 1,000 ML IV STA (19:32)
[2018-09-14 20:00] VITALS: BP 120/74; PULSE 76; RESP 19
[2018-09-14 21:50] VITALS: Ht 177.8 cm; Wt 79.4 kg
[2018-09-15] MEDS ORDERED: ACETAMINOPHEN 325 MG TAB PO PRN (01:00)
[2018-09-15] MEDS ORDERED: ONDANSETRON 4 MG INJ IV PRN (01:00)
[2018-09-15 02:00] VITALS: BP 151/85; PULSE 66; RESP 19
[2018-09-15] MEDS: HYDROmorphONE 0.5 MG/0.5 ML SYG IV PRN ×5 (02:33→22:24)
[2018-09-15] MEDS: VANCOMYCIN HCL 250 MG/5ML POSYG PO SCH ×3 (06:06→17:29)
[2018-09-15 08:00] VITALS: BP 117/76; PULSE 72; RESP 18
[2018-09-15] MEDS: NICOTINE (21 MG/24 HR) PATCH TRANSDERM SCH (10:35)
--- NOTE | 2018-09-15 10:42 | HP ---
Date/Time of Note Date/Time of Note DATE: 09/15/18 TIME: 10:21 Assessment/Plan VTE Prophylaxis Risk score (from [facility])>0 risk: 3 SCD applied (from [facility]): Yes Pharmacological prophylaxis: NA/contraindicated Pharm contraindication: surgical contra Lines/Catheters IV [facility]from [facility] Saline Lock Assessment/Plan Assessment/Plan -Proximal and left colon diverticulitis, start meropenem and vancomycin. Dr Geller is asked to see in ID consultation. Dr Simon is will be following in GI consultation. Dr Lozada will be following in general surgery consultation. -C. difficile colitis, continue p.o. vancomycin. -Hypertension, pressure is within normal limits. -History of multiple surgeries on cervical and lumbar spine -Tobacco dependence, cessation strongly advised, continue nicotine patch -History of IV drug use Further recommendations based on clinical course. Plan of care discussed with Dr. Wheatley. Result Diagram: 09/15/18 0942 09/14/18 1948 Results 24hrs Laboratory Tests Test 09/14/18 19:32 09/14/18 19:48 09/14/18 22:05 09/15/18 09:42 White Blood Count 10.8 # 9.6 Red Blood Count 4.84 4.95 Hemoglobin 14.5 14.8 Hematocrit 43.8 44.2 Mean Corpuscular Volume 90.5 89.3 Mean Corpuscular 30.0 29.9 Hemoglobin Mean Corpuscular 33.1 33.5 Hemoglobin Concent Red Cell Distribution 12.5 12.6 Width Platelet Count 353 383 Mean Platelet Volume 9.3 9.6 Immature Granulocytes % 0.700 H 0.500 H Neutrophils % 62.0 60.2 Lymphocytes % 20.6 24.3 Monocytes % 12.8 H 11.0 Eosinophils % 3.3 3.4 Basophils % 0.6 0.6 Nucleated Red Blood 0.0 0.0 Cells % Immature Granulocytes # 0.080 H 0.050 H Neutrophils # 6.7 5.8 Lymphocytes # 2.2 2.3 Monocytes # 1.4 H 1.1 H Eosinophils # 0.4 0.3 Basophils # 0.1 0.1 Nucleated Red Blood 0.0 0.0 Cells # Sodium Level 145 H Potassium Level 4.2 Chloride Level 105 Carbon Dioxide Level 33 H Anion Gap 7 Blood Urea Nitrogen 15 Creatinine 0.83 Est Glomerular Filtrat > 60 Rate mL/min Glucose Level 64 #L Calcium Level 9.2 Total Bilirubin 0.4 Direct Bilirubin 0.00 Indirect Bilirubin 0.4 Aspartate Amino 62 H Transf (AST/SGOT) Alanine 65 Aminotransferase (ALT/SG PT) Alkaline Phosphatase 75 Total Protein 7.7 Albumin 3.9 Globulin 3.80 H Albumin/Globulin Ratio 1.02 Lipase 94 Ethyl Alcohol Level < 10.0 H Urine Color YELLOW Urine Clarity CLEAR Urine pH 6.0 Urine Specific [place] 1.020 Urine Ketones NEGATIVE Urine Nitrite NEGATIVE Urine Bilirubin NEGATIVE Urine Urobilinogen 1+ H Urine Leukocyte Esterase TRACE A Urine Microscopic RBC 1 Urine Microscopic WBC 0 Urine Hemoglobin NEGATIVE Urine Glucose NEGATIVE Urine Total Protein NEGATIVE Urine Opiates Screen POSITIVE Urine Barbiturates NEGATIVE Urine Amphetamines NEGATIVE Screen Urine Benzodiazepines NEGATIVE Screen Urine Cocaine Screen NEGATIVE Urine Cannabinoids POSITIVE HPI/ROS Admit Date/Time Admit Date/Time Sep 14, 2018 at 19:31 Hx of Present Illness The patient is a 63-year-old male who was recently treated for acute diverticulitis with IV antibiotics since he failed conservative treatment with p.o. antibiotics as an outpatient. Patient also had increased in abdominal pain and increased leukocytosis with progressing the diet to regular and was currently on full liquid diet. Patient was also treated for C. difficile colitis. Patient left AGAINST MEDICAL ADVICE yesterday because he wanted to smoke. According to nursing notes refused nicotine patch or nicotine gum option. Patient stated that she felt significant abdominal pain after few blocks and feel generally weak, and then he has to return to hospital hospital. Urine drug screen was positive for cannabinoids. Patient denies any shortness of breath, denies chest pain denies any nausea, denies vomiting denies diarrhea. Patient is admitted to medical surgical floor for further management. ROS 12 point review of system is negative except what mentioned in HPI PMH/Family/Social Past Medical History Medical History: hypertension, other (Depression anxiety, degenerative joint disease) Medications Current Medications Nicotine (Nicoderm 21 Mg/ 24hr) 1 patch DAILY TRANSDERM ; Start 09/15/18 at 09:00 Acetaminophen (Tylenol Tab) 650 mg Q4H PRN PO MILD PAIN(1-3)OR ELEVATED TEMP; Start 09/15/18 at 01:00 Acetaminophen/ Hydrocodone Bitart ([place] (5/325)) 1 tab Q4H PRN PO MODERATE PAIN LEVEL 4-6; Start 09/15/18 at 01:00 Hydromorphone HCl (Dilaudid) 0.5 mg Q4H PRN IV SEVERE PAIN LEVEL 7-10 Last administered on 09/15/18at 06:44; Admin Dose 0.5 MG; Start 09/15/18 at 01:00 Ondansetron HCl (Zofran Inj) 4 mg Q4H PRN IV NAUSEA AND/OR VOMITING; Start 09/15/18 at 01:00 Vancomycin HCl (Vancomycin Oral Syringe) 250 mg Q6 PO Last administered on 09/15/18at 06:06; Admin Dose 250 MG; Start 09/15/18 at 06:00 Coded Allergies: ciprofloxacin (Verified Allergy, Mild, Rashes, itching, 09/05/18) levofloxacin (Verified Allergy, Mild, Rash, 02/28/18) penicillin G (Verified Allergy, Unknown, 02/28/18) rash codeine (Verified Adverse Reaction, Mild, GI UPSET, 02/28/18) nausea Past Surgical History spinal fusion sx, neck sx w/pins, lumbar, hardware L shoulder, abdominal sx Past Surgical Hx: other (Status post lumbar surgery 2014, status post cervical spine surgery in December 2017 status post anterior lumbar interbody fusion in January 2018 followed by ISF placement lumbar spine in February [address] Hutchinson) Family History Significant Family History: no pertinent family hx Social History Alcohol Use: none Smoking Status: Current every day smoker Drug Use: marijuana, other (History of methamphetamine use) Exam/Review of Systems Vital Signs Vitals Vital Signs Date Temp Pulse Resp B/P (MAP) Pulse Ox O2 O2 Flow FiO2 Time Delivery Rate 09/15/18 98.2 72 18 117/76 96 08:00 (90) 09/14/18 Room Air 21:09 Exam Constitutional: alert, oriented Head: normocephalic Neck: supple Respiratory: clear to auscultation Cardiovascular: nl pulses Gastrointestinal: soft, tender Extremities: normal pulses Neurological: nl mental status Skin: nl AYESHA Merchant Sep 15, 2018 10:31
[2018-09-15] MEDS ORDERED: MEROPENEM 1 GM/50ML(PMX) 50 ML IVPB SCH (10:49)
[2018-09-15 14:00] VITALS: BP 112/68; PULSE 82; RESP 24
--- NOTE | 2018-09-15 14:33 | CONS ---
Assessment/Plan Assessment/Plan Hospital Course (Demo Recall) All noted, alert, feels good, no fevers Antimicrobials: Vanco PO meropenem Allergies: Penicillin, Cipro, Levaquin Physical examination: Well-developed well-nourished elderly white male who is alert in no distress. Head atraumatic normocephalic neck is supple chest rise symmetrical breath sounds clear. Abdomen soft bowel sounds present. Extremities without cyanosis. Assessment: 1. SIRS 1. Ongoing diverticulitis of the proximal sigmoid colon 2. C. difficile colitis 3. History of IV drug use 4. History of multiple spinal surgeries Plan: Stable, dc Merrem, continue oral Vanco, f/u surgical rec-s DW Dr Lozada Consultation Date/Type/Reason Admit Date/Time Sep 14, 2018 at 19:31 Initial Consult Date Type of Consult id Date/Time of Note DATE: 09/15/18 TIME: 14:32 Exam/Review of Systems Exam Vitals Vital Signs Date Temp Pulse Resp B/P (MAP) Pulse Ox O2 O2 Flow FiO2 Time Delivery Rate 09/15/18 98.2 72 18 117/76 96 08:00 (90) 09/14/18 Room Air 21:09 Results Result Diagram: 09/15/18 0942 09/15/18 0942 Results 24hrs Laboratory Tests Test 09/14/18 19:32 09/14/18 19:48 09/14/18 22:05 09/15/18 09:42 White Blood Count 10.8 # 9.6 Red Blood Count 4.84 4.95 Hemoglobin 14.5 14.8 Hematocrit 43.8 44.2 Mean Corpuscular Volume 90.5 89.3 Mean Corpuscular 30.0 29.9 Hemoglobin Mean Corpuscular 33.1 33.5 Hemoglobin Concent Red Cell Distribution 12.5 12.6 Width Platelet Count 353 383 Mean Platelet Volume 9.3 9.6 Immature Granulocytes % 0.700 H 0.500 H Neutrophils % 62.0 60.2 Lymphocytes % 20.6 24.3 Monocytes % 12.8 H 11.0 Eosinophils % 3.3 3.4 Basophils % 0.6 0.6 Nucleated Red Blood 0.0 0.0 Cells % Immature Granulocytes # 0.080 H 0.050 H Neutrophils # 6.7 5.8 Lymphocytes # 2.2 2.3 Monocytes # 1.4 H 1.1 H Eosinophils # 0.4 0.3 Basophils # 0.1 0.1 Nucleated Red Blood 0.0 0.0 Cells # Sodium Level 145 H 142 Potassium Level 4.2 4.5 Chloride Level 105 104 Carbon Dioxide Level 33 H 29 Anion Gap 7 9 Blood Urea Nitrogen 15 13 Creatinine 0.83 0.64 Est Glomerular Filtrat > 60 > 60 Rate mL/min Glucose Level 64 #L 125 # Calcium Level 9.2 9.3 Total Bilirubin 0.4 0.5 Direct Bilirubin 0.00 0.00 Indirect Bilirubin 0.4 0.5 Aspartate Amino 62 H 60 H Transf (AST/SGOT) Alanine 65 60 Aminotransferase (ALT/SG PT) Alkaline Phosphatase 75 67 Total Protein 7.7 7.3 Albumin 3.9 3.8 Globulin 3.80 H 3.50 H Albumin/Globulin Ratio 1.02 1.08 Lipase 94 Ethyl Alcohol Level < 10.0 H Urine Color YELLOW Urine Clarity CLEAR Urine pH 6.0 Urine Specific [place] 1.020 Urine Ketones NEGATIVE Urine Nitrite NEGATIVE Urine Bilirubin NEGATIVE Urine Urobilinogen 1+ H Urine Leukocyte Esterase TRACE A Urine Microscopic RBC 1 Urine Microscopic WBC 0 Urine Hemoglobin NEGATIVE Urine Glucose NEGATIVE Urine Total Protein NEGATIVE Urine Opiates Screen POSITIVE Urine Barbiturates NEGATIVE Urine Amphetamines NEGATIVE Screen Urine Benzodiazepines NEGATIVE Screen Urine Cocaine Screen NEGATIVE Urine Cannabinoids POSITIVE Medications Medication Current Medications Nicotine (Nicoderm 21 Mg/ 24hr) 1 patch DAILY TRANSDERM Last administered on 09/15/18at 10:35; Admin Dose 1 PATCH; Start 09/15/18 at 09:00 Acetaminophen (Tylenol Tab) 650 mg Q4H PRN PO MILD PAIN(1-3)OR ELEVATED TEMP; Start 09/15/18 at 01:00 Acetaminophen/ Hydrocodone Bitart ([place] (5/325)) 1 tab Q4H PRN PO MODERATE PAIN LEVEL 4-6; Start 09/15/18 at 01:00 Hydromorphone HCl (Dilaudid) 0.5 mg Q4H PRN IV SEVERE PAIN LEVEL 7-10 Last administered on 09/15/18at 10:36; Admin Dose 0.5 MG; Start 09/15/18 at 01:00 Ondansetron HCl (Zofran Inj) 4 mg Q4H PRN IV NAUSEA AND/OR VOMITING; Start 09/15/18 at 01:00 Vancomycin HCl (Vancomycin Oral Syringe) 250 mg Q6 PO Last administered on 09/15/18at 12:32; Admin Dose 250 MG; Start 09/15/18 at 06:00 Meropenem/Sodium Chloride 50 ml @ 100 mls/hr Q12 IVPB Last administered on 09/15/18at 12:32; Admin Dose 100 MLS/HR; Start 09/15/18 at 10:49 MINERVA GARCIA NP Sep 15, 2018 14:33
--- NOTE | 2018-09-15 18:43 | CONS ---
Assessment/Plan Assessment/Plan Assessment/Plan (Daily) Assessment/Plan Hospital Course (Demo Recall) 63 yo male 1. Abdominal pain secondary C diff colitis and diverticulitis -improved completely resolved 2. Colonic diverticulosis 3. Depression and anxiety. 4. Status post back surgery. 5. Nicotine abuse. 6. Mild transaminitis most probably related to alcoholic liver disease. 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 -improved 7. C. difficile colitis Plan Continue antibiotic, meropenem and Flagyl and vancomycin Continue with full liquid diet Nicotine cessation prn anti emetics Advance to regular diet Discontinue Flagyl Consultation Date/Type/Reason Admit Date/Time Sep 14, 2018 at 19:31 Initial Consult Date Date/Time of Note DATE: 09/15/18 TIME: 18:42 24 HR Interval Summary Free Text/Dictation His only complaint is neck pain Constitutional: improved Exam/Review of Systems Exam Vitals Vital Signs Date Temp Pulse Resp B/P (MAP) Pulse Ox O2 O2 Flow FiO2 Time Delivery Rate 09/15/18 98.8 82 24 112/68 94 14:00 (83) 09/14/18 Room Air 21:09 Constitutional: alert, oriented, well developed Psych: no complaints, nl mood/affect Head: normocephalic, atraumatic Eyes: nl conjunctiva, EOMI, nl lids, nl sclera, PERRL ENMT: nl external ears & nose, nl lips & teeth, nl nasal mucosa & septum Neck: supple, non-tender Respiratory: clear to auscultation, normal air movement Cardiovascular: regular rate and rhythm, nl pulses Gastrointestinal: soft, nl liver, spleen, non-tender Musculoskeletal: nl extremities to inspection, nl gait and stance Extremities: normal pulses Neurological: INKER II-XII intact, nl mental status, nl speech, nl strength Skin: nl turgor; No rash or lesions Lymph: nl lymph nodes Results Result Diagram: 09/15/1842 09/15/1842 Results 24hrs Laboratory Tests Test 09/14/18 19:32 09/14/18 19:48 09/14/18 22:05 09/15/18 09:42 White Blood Count 10.8 # 9.6 Red Blood Count 4.84 4.95 Hemoglobin 14.5 14.8 Hematocrit 43.8 44.2 Mean Corpuscular Volume 90.5 89.3 Mean Corpuscular 30.0 29.9 Hemoglobin Mean Corpuscular 33.1 33.5 Hemoglobin Concent Red Cell Distribution 12.5 12.6 Width Platelet Count 353 383 Mean Platelet Volume 9.3 9.6 Immature Granulocytes % 0.700 H 0.500 H Neutrophils % 62.0 60.2 Lymphocytes % 20.6 24.3 Monocytes % 12.8 H 11.0 Eosinophils % 3.3 3.4 Basophils % 0.6 0.6 Nucleated Red Blood 0.0 0.0 Cells % Immature Granulocytes # 0.080 H 0.050 H Neutrophils # 6.7 5.8 Lymphocytes # 2.2 2.3 Monocytes # 1.4 H 1.1 H Eosinophils # 0.4 0.3 Basophils # 0.1 0.1 Nucleated Red Blood 0.0 0.0 Cells # Sodium Level 145 H 142 Potassium Level 4.2 4.5 Chloride Level 105 104 Carbon Dioxide Level 33 H 29 Anion Gap 7 9 Blood Urea Nitrogen 15 13 Creatinine 0.83 0.64 Est Glomerular Filtrat > 60 > 60 Rate mL/min Glucose Level 64 #L 125 # Calcium Level 9.2 9.3 Total Bilirubin 0.4 0.5 Direct Bilirubin 0.00 0.00 Indirect Bilirubin 0.4 0.5 Aspartate Amino 62 H 60 H Transf (AST/SGOT) Alanine 65 60 Aminotransferase (ALT/SG PT) Alkaline Phosphatase 75 67 Total Protein 7.7 7.3 Albumin 3.9 3.8 Globulin 3.80 H 3.50 H Albumin/Globulin Ratio 1.02 1.08 Lipase 94 Ethyl Alcohol Level < 10.0 H Urine Color YELLOW Urine Clarity CLEAR Urine pH 6.0 Urine Specific [place] 1.020 Urine Ketones NEGATIVE Urine Nitrite NEGATIVE Urine Bilirubin NEGATIVE Urine Urobilinogen 1+ H Urine Leukocyte Esterase TRACE A Urine Microscopic RBC 1 Urine Microscopic WBC 0 Urine Hemoglobin NEGATIVE Urine Glucose NEGATIVE Urine Total Protein NEGATIVE Urine Opiates Screen POSITIVE Urine Barbiturates NEGATIVE Urine Amphetamines NEGATIVE Screen Urine Benzodiazepines NEGATIVE Screen Urine Cocaine Screen NEGATIVE Urine Cannabinoids POSITIVE Medications Medication Current Medications Nicotine (Nicoderm 21 Mg/ 24hr) 1 patch DAILY TRANSDERM Last administered on 09/15/18at 10:35; Admin Dose 1 PATCH; Start 09/15/18 at 09:00 Acetaminophen (Tylenol Tab) 650 mg Q4H PRN PO MILD PAIN(1-3)OR ELEVATED TEMP; Start 09/15/18 at 01:00 Acetaminophen/ Hydrocodone Bitart ([place] (5/325)) 1 tab Q4H PRN PO MODERATE PAIN LEVEL 4-6; Start 09/15/18 at 01:00 Hydromorphone HCl (Dilaudid) 0.5 mg Q4H PRN IV SEVERE PAIN LEVEL 7-10 Last administered on 09/15/18at 17:29; Admin Dose 0.5 MG; Start 09/15/18 at 01:00 Ondansetron HCl (Zofran Inj) 4 mg Q4H PRN IV NAUSEA AND/OR VOMITING; Start 09/15/18 at 01:00 Vancomycin HCl (Vancomycin Oral Syringe) 250 mg Q6 PO Last administered on 09/15/18at 17:29; Admin Dose 250 MG; Start 09/15/18 at 06:00 OSCAR WILSON MD Sep 15, 2018 18:43
[2018-09-15 20:00] VITALS: BP 118/65; PULSE 87; RESP 19
[2018-09-16] MEDS: HYDROCODONE/APAP (5/325) TAB PO PRN ×2 (00:19→08:34)
[2018-09-16] MEDS: VANCOMYCIN HCL 250 MG/5ML POSYG PO SCH ×3 (00:19→11:22)
[2018-09-16 02:00] VITALS: BP 135/69; PULSE 57; RESP 16
[2018-09-16 08:05] VITALS: BP 122/77; PULSE 76; RESP 19
[2018-09-16] MEDS: NICOTINE (21 MG/24 HR) PATCH TRANSDERM SCH (08:31)
[2018-09-16] MEDS ORDERED: Vancomycin Oral Syringe PO (13:21)
--- NOTE | 2018-09-16 13:33 | DS ---
Date/Time of Note Date/Time of Note DATE: 09/16/18 TIME: 13:32 Discharge Summary Admission/Discharge Info Admit Date/Time Sep 14, 2018 at 19:31 Discharge Date/Time Patient Condition: Stable Hx of Present Illness The patient is a 63-year-old male who was recently treated for acute diverticulitis with IV antibiotics since he failed conservative treatment with p.o. antibiotics as an outpatient. Patient also had increased in abdominal pain and increased leukocytosis with progressing the diet to regular and was currently on full liquid diet. Patient was also treated for C. difficile colitis. Patient left AGAINST MEDICAL ADVICE yesterday because he wanted to smoke. According to nursing notes refused nicotine patch or nicotine gum option. Patient stated that she felt significant abdominal pain after few blocks and feel generally weak, and then he has to return to hospital hospital. Urine drug screen was positive for cannabinoids. Patient denies any shortness of breath, denies chest pain denies any nausea, denies vomiting denies diarrhea. Patient is admitted to medical surgical floor for further management. Hospital Course -Abdominal pain 2 to C-diff colitis and diverticulitis, resolved. -Proximal and left colon diverticulitis, resolved. S/p IV meropenem, vancomycin, and Flagyl. Dr Geller is following in ID consultation. Dr Simon is following in GI consultation. Dr Lozada is following in general surgery consultation. -C. difficile colitis, continue p.o. vancomycin. -Hypertension, pressure is within normal limits. -History of multiple surgeries on cervical and lumbar spine -Tobacco dependence, cessation strongly advised, continue nicotine patch -History of IV drug use Plan of care discussed with Dr. Wheatley. Home Meds Active Scripts [Vancomycin Oral Syringe] 50 MG/ML SOLN No Conflict Check, 250 MG PO Q6 for 7 Days Prov:AYESHA HAWKINS 09/16/18 Reported Medications Losartan Potassium* (Losartan Potassium*) 100 Mg Tablet, 100 MG PO DAILY, TAB 03/07/18 Discontinued Reported Medications Metoprolol Tartrate* (Lopressor*) 50 Mg Tab, 50 MG PO BID, #60 TAB 03/07/18 Amlodipine Besylate* (Norvasc*) 10 Mg Tablet, 10 MG PO DAILY, TAB 03/07/18 Follow-up Plan DC if cleared by general surgery, follow-up with Dr. Smion for colonoscopy in 2 weeks, follow-up with PMD in 2 weeks. Primary Care Provider [facility] Time spent on discharge: > 30 minutes AYESHA HAWKINS Sep 16, 2018 13:33
--- NOTE | 2018-09-16 14:25 | CONS ---
Assessment/Plan Assessment/Plan Assessment/Plan (Daily) pital Course (Demo Recall) 63 yo male 1. Abdominal pain secondary C diff colitis and diverticulitis -improved completely resolved 2. Colonic diverticulosis 3. Depression and anxiety. 4. Status post back surgery. 5. Nicotine abuse. 6. Mild transaminitis most probably related to alcoholic liver disease. 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 -improved 7. C. difficile colitis Plan Continue antibiotic, meropenem and Flagyl and vancomycin Continue with full liquid diet Nicotine cessation prn anti emetics Advance to regular diet Discontinue Flagyl Reduce vancomycin to 125 mg p.o. 3 times daily for the. Of next 7 days. Consultation Date/Type/Reason Admit Date/Time Sep 14, 2018 at 19:31 Initial Consult Date Date/Time of Note DATE: 09/16/18 TIME: 14:24 24 HR Interval Summary Constitutional: no complaints, improved Exam/Review of Systems Exam Vitals Vital Signs Date Temp Pulse Resp B/P (MAP) Pulse Ox O2 O2 Flow FiO2 Time Delivery Rate 09/16/18 98.4 76 19 122/77 96 Room Air 08:05 (92) Intake and Output 09/15/18 09/15/18 09/16/18 1515:00 23:00 07:00 IntakeIntake Total 50 ml 800 ml BalanceBalance 50 ml 800 ml Constitutional: alert, oriented, well developed Psych: no complaints, nl mood/affect Head: normocephalic, atraumatic Eyes: nl conjunctiva, EOMI, nl lids, nl sclera, PERRL ENMT: nl external ears & nose, nl lips & teeth, nl nasal mucosa & septum Neck: supple, non-tender Respiratory: clear to auscultation, normal air movement Cardiovascular: regular rate and rhythm, nl pulses Gastrointestinal: soft, nl liver, spleen, non-tender Musculoskeletal: nl extremities to inspection, nl gait and stance Extremities: normal pulses Neurological: SUGGESTION CLERK II-XII intact, nl mental status, nl speech, nl strength Skin: nl turgor; No rash or lesions Lymph: nl lymph nodes Results Result Diagram: 09/15/1842 09/15/18 0942 Medications Medication Current Medications Nicotine (Nicoderm 21 Mg/ 24hr) 1 patch DAILY TRANSDERM Last administered on 09/16/18at 08:31; Admin Dose 1 PATCH; Start 09/15/18 at 09:00 Acetaminophen (Tylenol Tab) 650 mg Q4H PRN PO MILD PAIN(1-3)OR ELEVATED TEMP; Start 09/15/18 at 01:00 Acetaminophen/ Hydrocodone Bitart ([place] (5/325)) 1 tab Q4H PRN PO MODERATE PAIN LEVEL 4-6 Last administered on 09/16/18at 08:34; Admin Dose 1 TAB; Start 09/15/18 at 01:00 Hydromorphone HCl (Dilaudid) 0.5 mg Q4H PRN IV SEVERE PAIN LEVEL 7-10 Last administered on 09/15/18at 22:24; Admin Dose 0.5 MG; Start 09/15/18 at 01:00 Ondansetron HCl (Zofran Inj) 4 mg Q4H PRN IV NAUSEA AND/OR VOMITING; Start 09/15/18 at 01:00 Vancomycin HCl (Vancomycin Oral Syringe) 250 mg Q6 PO Last administered on 09/16/18at 11:22; Admin Dose 250 MG; Start 09/15/18 at 06:00 OSCAR WILSON MD Sep 16, 2018 14:25
== END 2018-09-16 14:45 | disposition home or self-care (01) | DRG 372 ==
LOC: E/R 17:00 → PP2 19:31
PROVIDERS: ADMIT Internal Medicine; ATTEND Internal Medicine
DX: A04.72 Enterocolitis due to Clostridium difficile, not specified as recurrent (principal); K57.32 Diverticulitis of large intestine without perforation or abscess without bleeding; R65.10 Systemic inflammatory response syndrome (SIRS) of non-infectious origin without acute organ dysfunction; I10 Essential (primary) hypertension; Z72.0 Tobacco use; F41.8 Other specified anxiety disorders; K70.9 Alcoholic liver disease, unspecified
CPT/HCPCS: 36415; 80053; 80307; 81001; 83690; 85025; 87081; J1170; J2185; J7120